=== PATIENT | male | born 1950 | race Caucasian/White ===

== ENCOUNTER 2016-05-20 09:11 | Day surgery (SDC) | payer MEDICARE ==
[2016-05-20] VITALS (8 sets, daily range): BP systolic 109–140; BP diastolic 58–85; PULSE 74–85; RESP 16–18; O2SAT 90–98
[~2016-05-20 09:11] MED LIST: AMLO10TA3 PO; CRIZ250C PO; FURO40TA4 PO; GABA-500 PO; Hydrocortisone 50 mg/mL 2 mL Inj IVPUSH ONE; LEVO175T5 PO; LISI-567 PO; OMEP40CA36 PO; OXYC-474 PO; OXYC15TA73 PO; TAMS0.4C98 PO; TRAZ-115 PO; diphenhydrAMINE 25 mg Capsule PO ONE
[2016-05-20] MEDS ORDERED: Furosemide 10 mg/mL 2 mL Inj IV ONE (11:15)
--- NOTE | 2016-05-20 17:00 | NUR ---
Blood transfusion: Pt arrived to [facility] for Blood transfusion. IV started and infusion completed without issue. Pt currently has 3+ edema in bilateral lower extremities. Expiratory wheezes bilaterally. Pt stated that the MD is aware. Care notes given on discharge and pt has no questions. IV dc'd intact and pt left the unit via wheelchair with in stable condition.
[2016-05-25] MEDS ORDERED: ALBU8.5H2 INHALATION (11:19)
[2016-05-25] MEDS ORDERED: ADV100INH IH (11:19)
[2016-06-03] MEDS ORDERED: LEVO200T6 PO (09:16)
[2016-06-15] MEDS ORDERED: DXM4T PO (11:43)
[2016-06-15] MEDS ORDERED: PRE20 PO (11:43)
[2016-08-03] MEDS ORDERED: [UNRECOGNIZED DRUG - OTHER] PO (14:22)
[2016-08-03] MEDS ORDERED: DXM4T PO (15:50)
[2016-08-11] MEDS ORDERED: DXM4T PO (11:33)
[2016-08-30] MEDS ORDERED: [UNRECOGNIZED DRUG - OTHER] (08:45)
[2016-09-14] MEDS ORDERED: OMEP20CA11 PO (10:16)
[2016-09-14] MEDS ORDERED: POLY17PO6 PO (10:16)
[2016-09-14] MEDS ORDERED: HYDR2TAB28 PO (10:16)
[2016-09-14] MEDS ORDERED: LEVO200T6 PO (10:16)
[2016-09-14] MEDS ORDERED: FENT1PAT6 TRANSDERM (10:16)
[2016-09-27] MEDS ORDERED: FENT1PAT7 TRANSDERM (10:33)
== END 2016-05-20 23:59 | disposition home or self-care (01) ==
LOC: MOCO 09:11
PROVIDERS: ATTEND Internal Medicine Hematology & Oncology
DX: D64.9 Anemia, unspecified (principal); R60.9 Edema, unspecified

== ENCOUNTER 2016-05-25 12:04 | Inpatient (IN) | payer MEDICARE ==
[~2016-05-25] VITALS: Ht 172.7 cm; Wt 116.9 kg
[2016-05-25] VITALS (14 sets, daily range): BP systolic 98–164; BP diastolic 59–76; PULSE 70–85; RESP 12–24; O2SAT 86–94
[~2016-05-25 12:04] MED LIST changes: +ADV100INH IH; +ALBU8.5H2 INHALATION; -Hydrocortisone 50 mg/mL 2 mL Inj IVPUSH ONE; -diphenhydrAMINE 25 mg Capsule PO ONE
--- NOTE | 2016-05-25 12:24 | ED.REPORT ---
HPI-Dyspnea / Wheezing Date of Service May 25, 2016 ED Provider: Dr. Cecilio Carrasco Patient is a 66-year-old gentleman with a history of dual malignancy in form of prostate cancer and advanced lung adenocarcinoma who reports to the ED complaining of shortness of breath with expiratory wheezing worsening over the last 3 weeks. Pt also reports bilateral swelling to the lower and upper extremities. He denies chest pain. Via patient's , he regularly takes Oxycodone and Vicodin to manage pain due to cancer. Pt is also currently on po chemotherapy. Nursing Notes Stated Complaint: SOB Chief Complaint: Respiratory Distress Nursing Notes Reviewed: Yes Allergies: Coded Allergies: No Known Allergies (Unverified , 05/25/16) Scheduled Amlodipine (Amlodipine) 10 Mg Tablet 10 MG PO DAILY Crizotinib (Xalkori) 250 Mg Capsule 250 MG PO BID Fluticasone/Salmeterol (Advair 500-50 Diskus) 1 Each Disk.w.dev 1 PUFF INHALATION BID Furosemide (Furosemide) 20 Mg Tab 20 MG PO BID Gabapentin (Gabapentin) 100 Mg Capsule 300 MG PO TID Levothyroxine (Levothyroxine) 175 Mcg Tablet 175 MCG PO DAILY Lisinopril (Lisinopril) 20 Mg Tablet 20 MG PO DAILY Omeprazole (Omeprazole) 40 Mg Capsule.dr 20 MG PO DAILY Oxycodone ER (Oxycontin) 15 Mg Tab.er.12h 30 MG PO BID Tamsulosin (Flomax) 0.4 Mg Capsule 0.8 MG PO HS Trazodone (Trazodone) 50 Mg Tablet 50 MG PO HS Scheduled PRN Albuterol HFA (Proair HFA) 8.5 Gm Hfa.aer.ad 2 PUFFS INHALATION Q4H PRN PRN For Wheezing Oxycodone (Roxicodone) 5 Mg Tablet 15 MG PO QID PRN PRN For Pain General Time Seen by MD: 12:23 Chief Complaint Shortness of breath Hx Obtained From: Patient Arrived By: Walk-in Sudden in Onset?: Yes Onset Occurred: More than a week ago... 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 Physical Exam Initial Vital Signs Vital Signs (First) Date Time Temp Pulse Resp B/P Pulse Ox O2 Delivery O2 Flow Rate FiO2 05/25/16 12:12 36.3 81 24 118/66 94 Nasal Cannula 2 Initial VS: Reviewed Head / Eyes: Atraumatic, Normocephalic, PERRL ENT: Mucous membranes moist, Conjunctiva normal, No scleral icterus Abdomen / GI: Soft, Non-tender, No guarding, No rebound Extremities: Vascular intact, Neuro intact Skin: Warm Neurologic: Alert Psychiatric: Mood/affect normal General/Constitutional: Awake, Alert, Cooperative Neck: Atraumatic, Supple, Full range of motion, No swelling Diminished Breath Sounds: Positive: Decreased bilateral (severely diminished breath sounds bilaterally) Cardiovascular: Heart rate NL, Regular rhythm, Heart sounds NL Anasarca edema up to the abdomen Interpretation & Diagnostics Interpretation & Diagnostics: ANGIOGRAPHY CT IMPRESSION: 1. No evidence for pulmonary embolus. 2. Increase in abnormal soft tissue thought to be malignant involving paratracheal lymph nodes right hilar lymph nodes and right suprahilar mass compared to CT PE study of 03/27/16. 3. Decreasing size of the right mainstem bronchus, bronchus intermedius and complete occlusion of the right middle lobe bronchi with some volume loss in the right lung compared to the previous study. Dictated by: Ponce Armendariz M.D. on 05/25/2016 at 14:01 Approved by: Ponce Armendariz M.D. on 05/25/2016 at 14:01 Lab Results Interpretation Result Diagram: 05/25/16 1234 05/25/16 1234 Test 05/25/16 12:34 White Blood Count 6.6th/mm3 (3.8-10.1) Red Blood Count 3.48mil/mm3 (4.40-5.80) Hemoglobin 8.9g/dL (13.8-17.2) Hematocrit 30.1% (41.0-50.0) Mean Corpuscular Volume 86.5fL (81-100) Mean Corpuscular Hemoglobin 25.6pg (27.0-35.0) Mean Corpuscular Hemoglobin Concent 29.6% (32.0-37.0) Red Cell Distribution Width 16.9% (12.3-15.4) Platelet Count 170bil/L (150-400) Neutrophils (%) (Auto) 75.6% (40-74) Lymphocytes (%) (Auto) 10.2% (14-46) Monocytes (%) (Auto) 11.1% (4-12) Eosinophils (%) (Auto) 2.1% (0-5) Basophils (%) (Auto) 0.5% (0-3) Prothrombin Time 10.8sec (8.1-12.5) Prothromb Time International Ratio 1.01ratio Activated Partial Thromboplast Time 32.3sec (22.8-33.0) Sodium Level 134mEq/L (134-144) Potassium Level 4.6mEq/L (3.5-5.2) Chloride Level 95mEq/L (97-108) Carbon Dioxide Level 26mmol/L (18-29) Blood Urea Nitrogen 23mg/dL (8-27) Creatinine 0.92mg/dL (0.76-1.27) Estimat Glomerular Filtration Rate 88mL/min (>59) Glucose Level 119mg/dL (60-99) Calcium Level 9.0mg/dL (8.5-10.1) Magnesium Level 2.0mg/dL (1.6-2.6) Total Bilirubin 0.3mg/dL (0.0-1.2) Aspartate Amino Transf (AST/SGOT) 30U/L (0-50) Alanine Aminotransferase (ALT/SGPT) 27U/L (0-44) Alkaline Phosphatase 80U/L (25-160) Troponin T < 0.010ug/L (0.0-0.011) Pro-B-Type Natriuretic Peptide 69.40pg/mL (0-376) Total Protein 6.5g/dL (6.4-8.4) Albumin 3.4g/dL (3.4-5.0) Hold Mandel Top Tube Received (Received) ECG Interpretation Time: 13:32 Interpreted by: ED physician Normal ECG Interpretation: Normal ECG w/ rate of... (82) X-Ray Chest Interpretation Chest Xray Interpretation: IMPRESSION: 1. Left lung base atelectasis versus pneumonia. 2. No change in right lung scarring. Dictated by: Silke Kennedy M.D. on 05/25/2016 at 12:54 Approved by: Silke Kennedy M.D. on 05/25/2016 at 12:54 View: Portable Interpretation / Wet Read by: Interpret - Radiologist Re-Eval/Medical Decision Med Decision/Clinical Course Hypoxic respiratory failure and anasarca likely combination of COPD and medication related to chemotherapeutic agents. Will plan to diuresis with Lasix. Solu-Medrol and albuterol and DuoNeb's have been given due to concern for underlying COPD. No evidence of acute infection. Patient will be admitted. Re-Evaluation/Progress : Time of Eval: 14:10 Re-Evaluation/Progress Note: Pt rechecked. Pt informed that radiology is not showing any serious blood clot or infection but tumors have worsened. Informed pt of need for admission. Pt understands and agrees with plan for admission. All questions addressed. Consultation #1: Referral / Consult Name: Alton Lang MD Call Returned at: 14:22 Boat Joiner: Agrees with eval, Agrees with plan Note: Dr. Cazares thinks that swelling is due to chemo agent and recommends admission. He will contact [facility] [place]. Consultation #2: Referral / Consult Name: Wander Garduno MD Call Returned at: 14:54 Boat Joiner: Agrees with eval, Agrees with plan, Accepts admit Note: Case discussed. Accepts admit. Counseled Regarding: Diagnosis, Lab results, Need for admission Discharge & Departure Shift Change Sign-Out Patient Care Transferred: Yes Discussed Complaint(s): Yes Laboratory Evaluation: Lab evaluation discussed Imaging Studies: Imaging discussed Disposition: ADMITTED TO HOSPITAL Discharge Condition All VS Reviewed: Yes Condition: Stable Referrals: Wayne Austin (PCP) Paramjit Attestation Portion of this note were transcribed by Mauri Rodriguez. I, Dr. Carrasco, personally performed the history, physical exam, and medical decision-making: I reviewed and confirmed the accuracy for the information in the transcribed note. Signed by: paramjit Garcia, 05/25/16 [id number] copies to: Wayne Austin Timothy S DO May 25, 2016 12:24 MAURI RODRIGUEZ May 25, 2016 12:36
[2016-05-25] MEDS ORDERED: Albuterol 2.5 mg/3 mL Inhalation Solution NEB ONE (12:35)
[2016-05-25] MEDS ORDERED: Albuterol-Ipratropium 3 mL Inhalation Solution NEB ONE (12:35)
[2016-05-25] MEDS ORDERED: Ondansetron 2 mg/mL 2 mL Inj IVPUSH ONE (12:35)
[2016-05-25 12:51] LABS: BASOPHILS % (AUTO) 0.5 % (0-3); EOSINOPHILS % (AUTO) 2.1 % (0-5); MONOCYTES % (AUTO) 11.1 % (4-12); Mean Corpuscular Hemoglobin 25.6 pg (27.0-35.0); Mean Corpuscular Volume 86.5 fL (81-100); NEUTROPHILS % (AUTO) 75.6 % (40-74); Platelet Count 170 bil/L (150-400)
--- NOTE | 2016-05-25 12:55 | DRSVH ---
CORRECTED CC PROVIDER ON 05/25/16 PROCEDURE: X-RAY CHEST ONE VIEW, PORTABLE ([id number]) INDICATIONS: hypoxia TECHNIQUE: One view of the chest was acquired. COMPARISON: [facility], CR, CHEST 1 VIEW, 05/02/2016, 16:11. Merged With [facility], CR, XR CH EST 1VW (PORTABLE), 04/07/2016, 13:15. FINDINGS: Surgical changes and devices: None. Lungs and pleura: No pleural effusions or pneumothorax. No change in right perihilar and medial bas ilar opacity, consistent with scarring. New mild patchy opacity at the left lung base. Mediastinum: Mediastinal contours appear normal. Heart size is normal. Bones and chest wall: No suspicious bony lesions. Overlying soft tissues appear unremarkable. IMPRESSION: 1. Left lung base atelectasis versus pneumonia. 2. No change in right lung scarring. Dictated by: Silke Kennedy M.D. on 05/25/2016 at 12:54 Approved by: Silke Kennedy M.D. on 05/25/2016 at 12:54
[2016-05-25 13:18] LABS: INR 1.01 ratio
[2016-05-25 13:34] LABS: TROPONIN T < 0.010 ug/L (0.0-0.011)
[2016-05-25] MEDS ORDERED: FLUT1DIS5 INHALATION (13:35)
[2016-05-25] MEDS ORDERED: FUR20 PO (13:35)
--- NOTE | 2016-05-25 14:02 | DRSVH ---
PROCEDURE: CT ANGIO CHEST PULMONARY EMBOLISM ([id number]) INDICATIONS: hypoxia, ho cancer TECHNIQUE: After the administration of intravenous contrast, 2 mm thick sections acquired from the pulmonary api lilo to the posterior costophrenic angles. 3-dimensional maximum intensity projection (MIP) coronal a nd sagittal reformats were then acquired through the thorax. For radiation dose reduction, the follo wing was used: automated exposure control, adjustment of mA and/or kV according to patient size. COMPARISON: [facility], CR, CHEST 1 VIEW, 05/02/2016, 16:11. [facility], CR, XR CH EST 1VW (PORTABLE), 05/25/2016, 12:32. FINDINGS: Image quality: Excellent. Pulmonary arteries: Pulmonary arteries are normal in size, and demonstrate no intraluminal filling d efects to suggest central pulmonary embolism. Lungs and pleura: A. stellate lesion medially at the apex of the right lung appears to have increased slightly in size compared to the study of 03/27/16. There is some increasing soft tissue thought to be both radiation fibrosis and because in the region of the hilum because of mass effect on the vena cava and overall bulky appearance and loss of aeration of portion of the right middle lobe bronchi an d increasing loss of aeration in the right lower lobe there is likely to be recurrent tumor in the ar ea as well. Mediastinum: In the base of the neck on the right side between the common carotid artery and the righ t subclavian artery there is increasing soft tissue density to the most likely metastatic lymph node. This is seen on series 4 image 20. On series 4 image 44 there is increasing adenopathy in the right paratracheal region. There is increasing soft tissue in the region of the distal trachea and right ma instem bronchus compared to the previous study. Heart size is normal, without pericardial effusion. No mediastinal or hilar adenopathy. Thoracic aorta is normal in caliber and enhancement. Esophagus is normal in caliber, without hiatal hernia. Bones and chest wall: No suspicious bony lesions. Ribs and thoracic spine appear intact throughout. Thyroid gland is relatively small.. No axillary or supraclavicular adenopathy. Abdomen: Visualized upper abdominal solid organs appear normal in the early arterial phase of enhanc ement. Abnormal adrenal glands are not visibly changed. IMPRESSION: 1. No evidence for pulmonary embolus. 2. Increase in abnormal soft tissue thought to be malignant involving paratracheal lymph nodes right hilar lymph nodes and right suprahilar mass compared to CT PE study of 03/27/16. 3. Decreasing size of the right mainstem bronchus, bronchus intermedius and complete occlusion of the right middle lobe bronchi with some volume loss in the right lung compared to the previous study. Dictated by: Ponce Armendariz M.D. on 05/25/2016 at 14:01 Approved by: Ponce Armendariz M.D. on 05/25/2016 at 14:01
[2016-05-25] MEDS ORDERED: Furosemide 10 mg/mL 4 mL Inj IVPUSH ONE (14:20)
[2016-05-25] MEDS ORDERED: MethylprednisoLONE Sodium Succinate 62.5 mg/mL 2 mL Inj IVPUSH ONE (14:25)
[2016-05-25] MEDS ORDERED: Alum-Mag Hydrox-Simeth 30 mL Suspension PO PRN (15:00)
[2016-05-25] MEDS ORDERED: Ondansetron 2 mg/mL 2 mL Inj IVPUSH PRN (15:00)
--- NOTE | 2016-05-25 15:03 | PCM.HPMED ---
Subjective Date of Service May 25, 2016 Primary Provider: Admitting Physician: Primary Care Physician: Wayne Austin Attending Physician: Chief Complaint: HISTORY was OBTAINED FROM PATIENT / MEDITECH NOTES History of present illness 66-year-old male with progressive hypoxia for the last 3 weeks after he started crizotinib regimen for lung cancer (also prostate cancer), associated worsening of fluid overload despite lasix since prior to thismedication by oncology. Anasarca with weight gain of 25 pounds/short of breath, eating out w. so some salty food. baseline productive sputum. c/o of imcomplete bladder emtpying s/p lasix in ER though. ER doctor spoke to Dr. Cazares who recommends diuresis and she will call the [facility] for possible bronchus stent placement In the ER, O2 saturation 80% on room air, 40 of Lasix DuoNeb's, Solu-Medrol for diminished breath sounds, CT negative for PE and pneumonia but worsening cancer load and new right mainstem bronchus occlusion. Review of Systems - none of the following - F/C/sick contact / OLGUIN / lightheaded / cp / n/v/diarrhea / bleeding/bruising / l yeast infections / rash pain controlled w/ home meds MEDICATIONS carboplatin and Alimta, received four cycles and then switched to Alimta on March 30 then crizotinib instead of Alimta, started 2015 1. Amlodipine 10 mg. 2. Furosemide usually 20 mg daily. increased to 40 mg daily for 3 days after he went to urgent care because of lower extremity swelling. 3. Gabapentin 300 mg 3 times a day. 4. Levothyroxine 175 mcg. 5. Lisinopril 20 mg. 6. Omeprazole 20 mg. 7. OxyContin 50 mg b.i.d. 8. Tamsulosin 0.8 mg. 9. Trazodone 50 mg at bedtime. Albuterol HFA (Proair HFA) 8.5 Gm Hfa.aer.ad 2 PUFFS INHALATION Q4H PRN PRN For Wheezing Oxycodone (Roxicodone) 5 Mg Tablet 15 MG PO QID PRN PRN For Pain PMHX peripheral edema anemia multifactorial, possibly chemotherapy-induced. transfused by oncologist in past 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 prostate cancer gleason7 and advanced lung adenocarcinoma stage 3b Hypertension GERD Smoking History Former Smoker Exam on admission walks from bathroom NAD A and O x 3 mood affect WNL NC/AT no icterus no injected eyes EOMI PERRL /no pharyngeal lesions/ no oral lesions / hearing intact Supple neck DIMINISHED BILATEARL CTAB equal chest rise / no accessory muscle use / speaks in full sentences / no rrw RRR S1 S2 / no mrg / 2+ radial pulses Soft nt nd + BS no hepatosplenomegaly no cyanosis no ecchymosis of lower extremities No rash / no jaundice TOBIN edematous ABDOMEN/LEGS - ERYTHEMA DUE TO CHRONIC EDEMA OF LEGS EKG 80sSR no ST changes PROCEDURE: CT ANGIO CHEST PULMONARY EMBOLISM ([id number]) INDICATIONS: hypoxia, ho cancer TECHNIQUE: After the administration of intravenous contrast, 2 mm thick sections acquired from the pulmonary apices to the posterior costophrenic angles. 3-dimensional maximum intensity projection (MIP) coronal and sagittal reformats were then acquired through the thorax. For radiation dose reduction, the following was used: automated exposure control, adjustment of mA and/or kV according to patient size. COMPARISON: [facility], CR, CHEST 1 VIEW, 05/02/2016, 16:11. [facility], CR, XR CHEST 1VW (PORTABLE), 05/25/2016, 12:32. FINDINGS: Image quality: Excellent. Pulmonary arteries: Pulmonary arteries are normal in size, and demonstrate no intraluminal filling defects to suggest central pulmonary embolism. Lungs and pleura: A. stellate lesion medially at the apex of the right lung appears to have increased slightly in size compared to the study of 03/27/16. There is some increasing soft tissue thought to be both radiation fibrosis and because in the region of the hilum because of mass effect on the vena cava and overall bulky appearance and loss of aeration of portion of the right middle lobe bronchi and increasing loss of aeration in the right lower lobe there is likely to be recurrent tumor in the area as well. Mediastinum: In the base of the neck on the right side between the common carotid artery and the right subclavian artery there is increasing soft tissue density to the most likely metastatic lymph node. This is seen on series 4 image 20. On series 4 image 44 there is increasing adenopathy in the right paratracheal region. There is increasing soft tissue in the region of the distal trachea and right mainstem bronchus compared to the previous study. Heart size is normal, without pericardial effusion. No mediastinal or hilar adenopathy. Thoracic aorta is normal in caliber and enhancement. Esophagus is normal in caliber, without hiatal hernia. Bones and chest wall: No suspicious bony lesions. Ribs and thoracic spine appear intact throughout. Thyroid gland is relatively small.. No axillary or supraclavicular adenopathy. Abdomen: Visualized upper abdominal solid organs appear normal in the early arterial phase of enhancement. Abnormal adrenal glands are not visibly changed. IMPRESSION: 1. No evidence for pulmonary embolus. 2. Increase in abnormal soft tissue thought to be malignant involving paratracheal lymph nodes right hilar lymph nodes and right suprahilar mass compared to CT PE study of 03/27/16. 3. Decreasing size of the right mainstem bronchus, bronchus intermedius and complete occlusion of the right middle lobe bronchi with some volume loss in the right lung compared to the previous study. PROCEDURE: X-RAY CHEST ONE VIEW, PORTABLE ([id number]) INDICATIONS: hypoxia TECHNIQUE: One view of the chest was acquired. COMPARISON: [facility], CR, CHEST 1 VIEW, 05/02/2016, 16:11. [facility], CR, XR CHEST 1VW (PORTABLE), 04/07/2016, 13:15. FINDINGS: Surgical changes and devices: None. Lungs and pleura: No pleural effusions or pneumothorax. No change in right perihilar and medial basilar opacity, consistent with scarring. New mild patchy opacity at the left lung base. Mediastinum: Mediastinal contours appear normal. Heart size is normal. Bones and chest wall: No suspicious bony lesions. Overlying soft tissues appear unremarkable. IMPRESSION: 1. Left lung base atelectasis versus pneumonia. 2. No change in right lung scarring. 05/02/2016 Echo Interpretation Summary There is mild concentric left ventricular hypertrophy. The ejection fraction is estimated to be 60-65%. There is mild mitral regurgitation. Pulmonary artery pressures cannot be estimated because of the lack of a measurable TR jet velocity. Active issues and reason for admission aNASARCA/ACUTE ON CHRONIC DEPENDENT EDEMA, NOW ASSOCIATED W/ HYPOXIA DUE TO NEW CHEMOTHERAPY po MEDICATION --HOLD CHEMOTHERAPY MEDICATION, PENDING JEFFREY ON PROGRESSIVE R LUNG CANCER ON TODAY'S CT W/ NEW BRONCHUS STEM OCCLUSION --DIURESE LASIX 40 tid, MONITOR ELECTROLYTES URGENCY, CONTRIBUTORY LASIX/PROSTATE CANCER --PVR, IBRAHIM PRN INCOMPLETE BLADDER EMPTY --CONT FLOMAX Chronic issues known prior to admission, present on admission peripheral edema anemia multifactorial, possibly chemotherapy-induced. transfused by oncologist in past 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 prostate cancer gleason7 and advanced lung adenocarcinoma stage 3b Hypertension GERD --RESUME HOME MEDS, HELD LISINOPRIL WHILE DIURESING, CONSIDER DC AMLODIPINE INSETTING OF ONGOING PERIPHERAL EDEMA Diet REGULAR DVT prophylaxis lovenox ambulate Code FULL Disposition INPT, NEED CHEMO/BRONCHUS OCCLUSION PLAN FROM ONCOLOGY Assessment and plan were discussed with patient . Allergies Coded Allergies: No Known Allergies (Unverified , 05/25/16) PMH Social History Hx Alcohol Use: No Smoking Status: Former Smoker Exam Vital Signs Vital Sign - Last Date Time Temp Pulse Resp B/P Pulse Ox O2 Delivery O2 Flow Rate FiO2 05/25/16 12:12 36.3 81 24 118/66 94 Nasal Cannula 2 Lab and Diagnostics Result Diagram: 05/25/16 1234 05/25/16 Wander Wolf MD May 25, 2016 15:03 05/02/2016 Echo Interpretation Summary There is mild concentric left ventricular hypertrophy. The ejection fraction is estimated to be 60-65%. There is mild mitral regurgitation. Pulmonary artery pressures cannot be estimated because of the lack of a measurable TR jet velocity. Active issues and reason for admission Chronic issues known prior to admission, present on admission Diet DVT prophylaxis lovenox heparin scd ambulate Code Disposition OBS status Greater than 50% of this visit, with total time of 51 71 minutes, was spent on counselling and coordinating care. Assessment and plan were discussed with patient family. Allergies Coded Allergies: No Known Allergies (Unverified , 05/25/16) PM Social History Hx Alcohol Use: No Smoking Status: Former Smoker Exam Vital Signs Vital Sign - Last Date Time Temp Pulse Resp B/P Pulse Ox O2 Delivery O2 Flow Rate FiO2 05/25/16 12:12 36.3 81 24 118/66 94 Nasal Cannula 2 Lab and Diagnostics Result Diagram: 05/25/16 1234 05/25/16 Wander Wolf MD May 25, 2016 15:03 The ejection fraction is estimated to be 60-65%. There is mild mitral regurgitation. Pulmonary artery pressures cannot be estimated because of the lack of a measurable TR jet velocity. Active issues and reason for admission Chronic issues known prior to admission, present on admission Diet DVT prophylaxis lovenox heparin scd ambulate Code Disposition OBS status Greater than 50% of this visit, with total time of 51 71 minutes, was spent on counselling and coordinating care. Assessment and plan were discussed with patient family. Allergies Coded Allergies: No Known Allergies (Unverified , 05/25/16) PMH Social History Hx Alcohol Use: No Smoking Status: Former Smoker Exam Vital Signs Vital Sign - Last Date Time Temp Pulse Resp B/P Pulse Ox O2 Delivery O2 Flow Rate FiO2 05/25/16 12:12 36.3 81 24 118/66 94 Nasal Cannula 2 Lab and Diagnostics Result Diagram: 05/25/16 1234 05/25/16 1234 Wander Garduno MD May 25, 2016 15:03
[2016-05-25] MEDS: Albuterol-Ipratropium 3 mL Inhalation Solution NEB SCH ×2 (16:00→20:11)
--- NOTE | 2016-05-25 16:55 | NUR ---
Arrived He arrived to [place] [id number] about 1655. He was settled into the room, telemetry placed on him, 2L of O2, and he was hooked up to the continuous pulse oximeter. No c/o pain or shortness of breath. Care continues.
[2016-05-25] MEDS: XALKORI 250 MG PO SCH (17:54)
[2016-05-25 18:33] LABS: APPEARANCE,URINE CLEAR (CLEAR,HAZY); COLOR,URINE YELLOW (YELLOW); OCCULT BLOOD,URINE NEGATIVE (NEGATIVE); PH,URINE 5.5 (5.0-8.0); UROBILINOGEN,URINE NORMAL (NORMAL)
[2016-05-25] MEDS: Fluticasone-Salmeterol 500-50 Inhaler INHALATION SCH (21:01)
[2016-05-25] MEDS: Furosemide 10 mg/mL 4 mL Inj IVPUSH SCH (21:04)
[2016-05-26] VITALS (15 sets, daily range): BP systolic 101–144; BP diastolic 58–90; PULSE 83–107; RESP 16–20; O2SAT 87–96
[2016-05-26] MEDS: Furosemide 10 mg/mL 4 mL Inj IVPUSH SCH ×2 (05:18→16:15)
--- NOTE | 2016-05-26 06:18 | NUR ---
Apnea: Pt scored high on Risk Assessment for ANNABELLA and was placed on continuous pulse oximetry last night when going to sleep. Pt noted to have periods of apnea with oxygen desaturations. Pt was placed on an oxymask at 4L and then increased to 6L to maintain saturations above 91%. The pt was noted to be restless during his sleep, several times pulling the oxymask off. Pt awake this am saturating in the mid 90s on 4L per NC; denies any SOB. Will cont. to monitor.
[2016-05-26 06:31] LABS: BASOPHILS % (AUTO) 0 % (0-3); EOSINOPHILS % (AUTO) 0.2 % (0-5); MONOCYTES % (AUTO) 1.9 % (4-12); Mean Corpuscular Hemoglobin 26.1 pg (27.0-35.0); Mean Corpuscular Volume 86.7 fL (81-100); NEUTROPHILS % (AUTO) 92.6 % (40-74); Platelet Count 172 bil/L (150-400)
[2016-05-26 06:37] LABS: Phosphorus 5.4 mg/dL (2.5-4.9)
[2016-05-26] MEDS: Albuterol-Ipratropium 3 mL Inhalation Solution NEB SCH ×4 (07:44→21:00)
--- NOTE | 2016-05-26 08:01 | PCM.PNMED ---
Subjective Date of Service May 26, 2016 Subjective no complaints overnight, denies cp/f/c/n/v - needed 4-6L overnight to maintain oxygen saturations. elev K this AM - repeat and check ekg Exam Vital Signs Vital Sign - Last Date Time Temp Pulse Resp B/P Pulse Ox O2 Delivery O2 Flow Rate FiO2 05/26/16 05:57 86 05/26/16 05:25 36.4 19 114/67 96 Nasal Cannula 4.00 Intake and Output 05/25/16 05/25/16 05/26/16 Cumulative From/Thru 15:00 23:00 07:00 05/25/16 12:12 - 05/26/16 05:23 Intake Total 800 ml 800 ml Output Total 700 ml 1350 ml 2050 ml Balance -700 ml -550 ml -1250 ml Intake Oral 800 ml 800 ml Output Urine Total 700 ml 1350 ml 2050 ml # Bowel Movements 0 0 Exam walks, off oxygen NAD A and O x 3 mood affect WNL NC/AT no icterus no injected eyes EOMI PERRL /no pharyngeal lesions/ no oral lesions / hearing intact Supple neck DIMINISHED BILATEARL CTAB equal chest rise / no accessory muscle use / speaks in full sentences / no rrw RRR S1 S2 / no mrg / 2+ radial pulses Soft nt nd + BS no hepatosplenomegaly no cyanosis no ecchymosis of lower extremities No rash / no jaundice TOBIN IVs and Medications Medications Reviewed: Medications were reviewed in detail Lab and Diagnostics Result Diagram: 05/26/16 0555 05/26/16 0555 Assessment & Plan ANASARCA/ACUTE ON CHRONIC DEPENDENT EDEMA, acute hypoxic respiratory failure DUE TO dieatary indiscretion, bronchus stem occlusion and new chemotx po MEDICATION --HOLD CHEMOTHERAPY MEDICATION, PENDING JEFFREY ON PROGRESSIVE R LUNG CANCER ON TODAY'S CT W/ NEW BRONCHUS STEM OCCLUSION --DIURESE LASIX 40 tid, MONITOR ELECTROLYTES URGENCY, CONTRIBUTORY LASIX/PROSTATE CANCER --PVR, IBRAHIM PRN INCOMPLETE BLADDER EMPTY --CONT FLOMAX Chronic issues known prior to admission, present on admission peripheral edema anemia multifactorial, possibly chemotherapy-induced. 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 Pain Evaluation: Adequate Pain Control VTE Prophylaxis: Sub-Q Enoxaparin Resuscitation Status: CPR: Attempt Resuscitation Time spent 35 minutes spent with eval and mgmt - >50% spent with counseling and face to face Arturo Hong DO May 26, 2016 06:58
[2016-05-26] MEDS: Fluticasone-Salmeterol 500-50 Inhaler INHALATION SCH ×2 (08:19→20:48)
[2016-05-26] MEDS: Pantoprazole 20 mg ER24 Tablet PO SCH (08:20)
[2016-05-26] MEDS ORDERED: Non-Formulary Medication (Levothyroxine 175 MCG) PO SCH (08:30)
[2016-05-26] MEDS: XALKORI 250 MG PO SCH (08:30)
--- NOTE | 2016-05-26 10:46 | NUR ---
Evaluation completed. Please go to "Notes" then click on "Assessments and Notes" (bottom left corner of screen). Then select appropriate discipline tab on top of screen.
--- NOTE | 2016-05-26 11:47 | NUR ---
Case Managment- IMM explained and signed. Khadijah BOWIE RN
--- NOTE | 2016-05-26 16:56 | NUR ---
RESPIRATORY PO2 on room air is 87-88 %. Ambulated in the hallway O2 dropped to 87-88 %. O2 was placed back on. PO2 on O2 at 4 LPM- Mid 90's. Patient stated that his SOB is getting a little better.
--- NOTE | 2016-05-26 17:25 | NUR ---
ACTIVITY Patient denies pain. Tolerating liquids PO and his diet well. Denies nausea. No emesis noted. Patient continues to be on O2 at 4 LPM via NC. He complains of SOB with exertion. Per patient his SOB is lesser as compared to admit but not significantly better. Voiding without any problems. PVR-180 ml. Patient continues to be on tele. Per supervisor telephone answering service patient is on sinus rhythm; HR-84. Radiation is scheduled for tomorrow at 10:45 at the oncology clinic. Cabulance is set to pick him up at 1015. Patient was made aware of this.
--- NOTE | 2016-05-26 22:00 | NUR ---
Patients duoneb skipped, patient sleeping and in no respiratory distress
[2016-05-27] VITALS (12 sets, daily range): BP systolic 132–143; BP diastolic 72–78; PULSE 72–100; RESP 18–20; O2SAT 87–98
--- NOTE | 2016-05-27 02:42 | NUR ---
Pain/Transfer of care Pt reports back/shoulder pain at 5-6/10, Oxycodone given x1, moderately effective, pt asleep off and on. Care transferred to [facility] at 0240.
[2016-05-27] MEDS: Furosemide 10 mg/mL 4 mL Inj IVPUSH SCH ×2 (05:09→17:36)
[2016-05-27 05:38] LABS: BASOPHILS % (AUTO) 0.3 % (0-3); EOSINOPHILS % (AUTO) 1.3 % (0-5); MONOCYTES % (AUTO) 9.2 % (4-12); Mean Corpuscular Hemoglobin 25.9 pg (27.0-35.0); Mean Corpuscular Volume 85.8 fL (81-100); NEUTROPHILS % (AUTO) 78.8 % (40-74); Platelet Count 162 bil/L (150-400)
--- NOTE | 2016-05-27 07:31 | NUR ---
Assumed care Assumed care of patient at 0240 from Jeet Rivas RN. Patient resting/sleeping during remainder of shift. Using NC 3L. Patient stated pain around right shoulder blade area but refused pain medication. Administered 40mg IVP lasix.
[2016-05-27] MEDS: Albuterol-Ipratropium 3 mL Inhalation Solution NEB SCH ×4 (07:49→19:58)
[2016-05-27] MEDS: Pantoprazole 20 mg ER24 Tablet PO SCH (07:54)
[2016-05-27] MEDS: Fluticasone-Salmeterol 500-50 Inhaler INHALATION SCH ×2 (07:55→20:34)
--- NOTE | 2016-05-27 12:37 | NUR ---
to [facility] for Radiation mapping [place] had arranged transport through [facility] transport per MD orders. Pt picked up via cabulance and transferred to [facility] for scheduled radiation mapping at 1038, left in stable condition via wheelchair with 3LO2. Called report to Rosalva NOVOA at the [facility]. Pt returned back to [facility] room 1007 at 1157. Pt denies any unmet needs at this time. Care continues.
--- NOTE | 2016-05-27 13:27 | NUR ---
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 Met with patient and introduced myself. patient was waiting for [facility]ulance to arrive for transport to Radiation Oncology. I will discuss my role as outside plant engineer when patient returns from Radiation Oncology. Addendum: 05/27/16 at 1437 by ABDULLAHI OLIVIER RN Met with patient and discussed Respite Care for his who is getting tired and he would like his to be a part of the conversation. Shared patient's concern re: respite care for patient's and involving in conversation with ROWAN Su[facility] Travel Administrator for [facility]. I recommended an expedited [place] application for patient to [employer] after discussing respite care for with Oncology Saravanan DONAHUE. I reassured patient his , Radha would be included in the conversation. Will continue to follow and address any care needs as they arise.
--- NOTE | 2016-05-27 17:20 | PCM.PNMED ---
Subjective Date of Service May 27, 2016 Subjective Patient seen this morning with no acute issues, denies chest pain or short of breath. Exam Vital Signs Vital Sign - Last Date Time Temp Pulse Resp B/P Pulse Ox O2 Delivery O2 Flow Rate FiO2 05/27/16 16:21 72 20 98 Nasal Cannula 3.00 05/27/16 15:13 36.5 143/73 Intake and Output 05/26/16 05/26/16 05/27/16 Cumulative From/Thru 15:00 23:00 07:00 05/25/16 12:12 - 05/27/16 05:52 Intake Total 780 ml 840 ml 2420 ml Output Total 2300 ml 1350 ml 5700 ml Balance -1520 ml -510 ml -3280 ml Intake Oral 780 ml 840 ml 2420 ml Output Urine Total 2300 ml 1350 ml 5700 ml # Voids 1 1 # Bowel Movements 0 0 0 Exam NAD A and O x 3 mood affect WNL NC/AT no icterus no injected eyes EOMI PERRL /no pharyngeal lesions/ no oral lesions / hearing intact Supple neck DIMINISHED BILATEARL CTAB equal chest rise / no accessory muscle use / speaks in full sentences / no rrw RRR S1 S2 / no mrg / 2+ radial pulses Soft nt nd + BS no hepatosplenomegaly no cyanosis no ecchymosis of lower extremities No rash / no jaundice TOBIN IVs and Medications Medications Reviewed: Medications were reviewed in detail Lab and Diagnostics Result Diagram: 05/27/16 0502 05/27/16 0502 Assessment & Plan ANASARCA/ACUTE ON CHRONIC DEPENDENT EDEMA, acute hypoxic respiratory failure due to dieatary indiscretion, bronchus stem occlusion and new chemotx po MEDICATION --HOLD CHEMOTHERAPY MEDICATION, PENDING JEFFREY ON PROGRESSIVE R LUNG CANCER ON TODAY'S CT W/ NEW BRONCHUS STEM OCCLUSION --DIURESE LASIX 40 tid--> weaned to q12, MONITOR ELECTROLYTES -- Received radiation on May 27 URGENCY, CONTRIBUTORY LASIX/PROSTATE CANCER --PVR, IBRAHIM PRN INCOMPLETE BLADDER EMPTY --CONT FLOMAX Chronic issues known prior to admission, present on admission peripheral edema anemia multifactorial, possibly chemotherapy-induced. transfused by oncologist in past prostate cancer gleason7 and advanced lung adenocarcinoma stage 3b Hypertension GERD --RESUME HOME MEDS, HELD LISINOPRIL WHILE DIURESING, held AMLODIPINE INSETTING OF ONGOING PERIPHERAL EDEMA Diet REGULAR DVT prophylaxis lovenox ambulate Code FULL Disposition INPT, NEED CHEMO/BRONCHUS OCCLUSION PLAN FROM ONCOLOGY Assessment and plan were discussed with patient . Pain Evaluation: Adequate Pain Control VTE Prophylaxis: Sub-Q Enoxaparin Resuscitation Status: CPR: Attempt Resuscitation Time spent 30 minutes spent with eval and mgmt Arturo Hong DO May 27, 2016 17:20
--- NOTE | 2016-05-27 19:53 | NUR ---
ambulating Pt ambulating in hallway independently without difficulty, on 3LO2, O2 sats 98%. Pt was checked earlier today on room air after ambulating around room and only 87% on room air, encouraged to keep O2 on for activity. Medicated x1 this afternoon for c/o R shoulder pain, pt reports only somewhat effective but declines additional pain medication at this time. Call light in reach. Care continues.
[2016-05-28] VITALS (7 sets, daily range): BP systolic 148–157; BP diastolic 75–80; PULSE 76–95; RESP 19–22; O2SAT 91–97
--- NOTE | 2016-05-28 00:33 | CCS NOTE ---
[facility] [address] [address] MEDICAL ONCOLOGY OFFICE NOTE PATIENT: VALARIE RIVAS : 1950 MR#: [id number] DATE: 05/25/2016 JOB ID: [id number] MEDICAL ONCOLOGY PROGRESS NOTE: DATE: 05/27/2016 SUBJECTIVE: Patient was seen in the room with his . His oxygenation is still low on room air and he required 3 L of oxygen. Upon removing the oxygen, he desats to 87%. Blood pressure is stable, no fever. Aggressive diuresis has been ongoing over the past couple of days with Lasix 40 mg IV b.i.d. He feels slightly better in his breathing, but not drastically. We have discontinued the crizotinib. LABORATORIES: Show white count of 10.5, hemoglobin 8.2, platelets 162. Chemistry shows normal electrolytes. BUN is rising to 29, creatinine 0.69 today. PHYSICAL EXAMINATION: On exam, he still has quite a bit of edema in his legs. His weight has not changed much, still at 126.9 kg, which is similar to his admission. Heart regular. Abdomen is soft. ASSESSMENT AND PLAN: A 56-year-old gentleman with lung adenocarcinoma who was admitted through our clinic on May 25 to the hospital after he presented with new room-air hypoxia. He had upon admission a CT angio of the chest that was negative for PE, but revealed progression of the right paratracheal/hilar mass in form of compression effect and occlusion of the right middle lobe bronchus and narrowing of the right main bronchus. He did not have any evidence of congestive heart failure even though he has gained 25 pounds in three weeks and has significant lower extremity edema bilaterally based on his normal BNP. He did not require oxygen in the past, but currently is room-air hypoxic. I have spoken with Dr. Brito of Radiation Therapy to consider changing treatment towards more intense rates with treatment towards the right hilum in form of radiation possibly enhancing it with concomitant low-dose chemotherapy. His fluid retention in his legs I believe is related to side effect of this recent agent he started orally against his lung cancer, crizotinib, in the second half of April. I have asked the family to discontinue that. In my conversation with Radiation Oncology today, he can be simulated today and potentially start radiation early next week. If home oxygen can be arranged, then per discretion of the hospitalist team and hospital case management, he could be discharged over the weekend once oxygen at home is made available. I think we can scale back on the intensity of diuresis and send him home on 40 mg of Lasix IV. With discontinuation of crizotinib, I am hoping that the edema will gradually improve. He already is having elevation of BUN/creatinine ratio and an increase suggestive for intravascular contraction. I reviewed this situation with him and his family and also have discussed his case with Dr. Mendoza who was his oncologist at [facility]. We will plan to see him in the clinic next week. Further details are summarized in my note of May 25, 2016. TIME SPENT WITH PATIENT: Approximately 1 hour and 5 minutes were spent in counseling and coordination of care.
[2016-05-28] MEDS: Furosemide 10 mg/mL 4 mL Inj IVPUSH SCH ×2 (04:43→17:10)
--- NOTE | 2016-05-28 06:18 | NUR ---
Respiratory/Fatigue Pt reports SOB with activity, maintained on 2-4 Lnc. Pain in shoulder/back managed with PRN po meds, ambuating for relief, and bengay. Edema noted BLE, daily wt, pt on lasix. LS dim, pt states that R mid lobe is blocked by tumor. 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 Continue to monitor
[2016-05-28] MEDS: Albuterol-Ipratropium 3 mL Inhalation Solution NEB SCH ×4 (07:36→21:14)
--- NOTE | 2016-05-28 07:58 | NUR ---
Home Oxygen Eval Room Air at rest 85%
[2016-05-28 08:43] LABS: BASOPHILS % (AUTO) 0.6 % (0-3); EOSINOPHILS % (AUTO) 1.4 % (0-5); MONOCYTES % (AUTO) 10.2 % (4-12); Mean Corpuscular Hemoglobin 25.6 pg (27.0-35.0); Mean Corpuscular Volume 85.6 fL (81-100); NEUTROPHILS % (AUTO) 74.5 % (40-74); Platelet Count 160 bil/L (150-400)
[2016-05-28] MEDS: Fluticasone-Salmeterol 500-50 Inhaler INHALATION SCH ×2 (08:56→20:57)
[2016-05-28] MEDS: Pantoprazole 20 mg ER24 Tablet PO SCH (08:56)
--- NOTE | 2016-05-28 14:04 | PCM.PNMED ---
Subjective Date of Service May 28, 2016 Subjective Patient seen this morning, no complaints and denies chest pain or shortness of breath. Educated about low salt diets and decreasing frequency of eating out in restaurants. Continues to be on oxygen and will likely need home oxygen. Hyperkalemic today, plan for discharge tomorrow Exam Vital Signs Vital Sign - Last Date Time Temp Pulse Resp B/P Pulse Ox O2 Delivery O2 Flow Rate FiO2 05/28/16 12:35 20 93 Nasal Cannula 3.00 05/28/16 07:36 76 05/28/16 05:02 36.4 148/77 Intake and Output 05/27/16 05/27/16 05/28/16 Cumulative From/Thru 15:00 23:00 07:00 05/25/16 12:12 - 05/28/16 05:02 Intake Total 1340 ml 1600 ml 5360 ml Output Total 2240 ml 2700 ml 97092 ml Balance -900 ml -1100 ml -5280 ml Intake Oral 1340 ml 1600 ml 5360 ml Output Urine Total 2240 ml 2700 ml 90265 ml # Voids 1 # Bowel Movements 1 0 1 Exam NAD A and O x 3 mood affect WNL, up in chair with nasal cannula NC/AT no icterus no injected eyes EOMI PERRL /no pharyngeal lesions/ no oral lesions / hearing intact Supple neck CTAB equal chest rise / no accessory muscle use / speaks in full sentences / no rrw RRR S1 S2 / no mrg / 2+ radial pulses Soft nt nd + BS no hepatosplenomegaly no cyanosis no ecchymosis of lower extremities, 2+ extremity edema bilaterally No rash / no jaundice Ambulating around room IVs and Medications Medications Reviewed: Medications were reviewed in detail Lab and Diagnostics Result Diagram: 05/28/16 0827 05/28/16 1120 X-Rays, CTs and MRIs CT angiogram IMPRESSION: 1. No evidence for pulmonary embolus. 2. Increase in abnormal soft tissue thought to be malignant involving paratracheal lymph nodes right hilar lymph nodes and right suprahilar mass compared to CT PE study of 03/27/16. 3. Decreasing size of the right mainstem bronchus, bronchus intermedius and complete occlusion of the right middle lobe bronchi with some volume loss in the right lung compared to the previous study. Dictated by: Ponce Armendariz M.D. on 05/25/2016 at 14:01 Assessment & Plan ANASARCA/ACUTE ON CHRONIC DEPENDENT EDEMA, acute hypoxic respiratory failure due to dieatary indiscretion, bronchus stem occlusion and new chemotx po medication -- Holding on therapy met, appreciate recommendation --DIURESE LASIX 40 tid--> weaned to q12, monitor electrolytes likely discharged tomorrow with home 40 mg orally twice a day -- Received radiation on May 27 -- Possibly start radiation early next week per oncology TIME SPENT WITH PATIENT: Approximately 1 hour and 5 minutes were spent in counseling and coordination of care. Urinary urgency, stable --PVR, IBRAHIM PRN INCOMPLETE BLADDER EMPTY -- Continue Flomax Chronic issues known prior to admission, present on admission peripheral edema anemia multifactorial, possibly chemotherapy-induced. transfused by oncologist in past prostate cancer gleason7 and advanced lung adenocarcinoma stage 3b Hypertension GERD -- Resume lisinopril today. Continue holding amlodipine due to lower extremity edema Diet REGULAR DVT prophylaxis lovenox ambulate Code FULL Disposition discharge home tomorrow with home oxygen Assessment and plan were discussed with patient . Pain Evaluation: Adequate Pain Control VTE Prophylaxis: Sub-Q Enoxaparin Resuscitation Status: CPR: Attempt Resuscitation Time spent 35 minutes spent with evaluation and management Arturo Hong DO May 28, 2016 14:04
--- NOTE | 2016-05-28 16:49 | NUR ---
Social Work: Initial Assessment Data & Assessment: EMR Reviewed. See Initial assessment. Patient is a 66 y/o male that admitted due to hypoxia and lung cancer. SW met with patient at bedside to complete initial assessment, discuss discharge planning and SW role reviewed. Patient's NOK/DPOA is his Radha Josue- [phone]. SW requested a copy of DPOA. Patient confirmed that his PCP is Wayne MELGOZA MD. Patient's insurance is [employer]. Patient's re-admt score is high at 5. Patient is independent with ADL's at baseline. Patient lives in a two story home with 2 steps to enter with his and 15 steps on the inside. Patient does not have to go up the stairs. Patient does not have VA or LTC benefits. Patient does not have any DME and no SNF or HH history. SW provided patient with Senior resource guide. Patient does not have any discharge plans at the current time. SW will continue to follow. Plan: Patient likely to discharge home with spouse via POV. SW will continue to follow. Everardo Alex LMSW, ARCHANA Addendum: 05/28/16 at 1700 by EVERARDO TSAI Amended: Links added.
--- NOTE | 2016-05-28 17:10 | NUR ---
Potassium/Anxiety Lab draw at this time for repeat potassium level. Will await result and FYI Page Dr. Hong with results. Patient exhibits increased anxiety and intermittently emotional regarding health status. Wrote results outcome on board so patient can see trend.
[2016-05-29 05:16] VITALS: BP 132/80; PULSE 90; RESP 20; O2SAT 98
[2016-05-29] MEDS: Furosemide 10 mg/mL 4 mL Inj IVPUSH SCH (05:44)
[2016-05-29 06:49] LABS: BASOPHILS % (AUTO) 0.4 % (0-3); EOSINOPHILS % (AUTO) 2.1 % (0-5); MONOCYTES % (AUTO) 9.4 % (4-12); Mean Corpuscular Hemoglobin 25.6 pg (27.0-35.0); NEUTROPHILS % (AUTO) 74.1 % (40-74); Platelet Count 149 bil/L (150-400)
--- NOTE | 2016-05-29 07:42 | NUR ---
Labs/Pain Pt reports pain 9-10 in shoulder- managed with PRN oxycodone 30mg and APAP. Pt sleeps in chair at bedside. Edema noted BLE. Lasix given in am. No complaints of SOB or Chest pain, remains on supplemental O2. Care continues
[2016-05-29 07:47] VITALS: PULSE 93; RESP 20; O2SAT 94
[2016-05-29] MEDS: Albuterol-Ipratropium 3 mL Inhalation Solution NEB SCH (07:47)
[2016-05-29] MEDS: Pantoprazole 20 mg ER24 Tablet PO SCH (08:16)
[2016-05-29] MEDS: Fluticasone-Salmeterol 500-50 Inhaler INHALATION SCH (08:16)
[2016-05-29] MEDS ORDERED: Furosemide 10 mg/mL 2 mL Inj IV ONE (08:45)
--- NOTE | 2016-05-29 10:45 | PCM.DIMED ---
Discharge Instructions Date of Service May 29, 2016 Dates of Hospitalization May 25, 2016 at 15:05 Discharge Diagnosis Discharge Diagnosis ANASARCA/ACUTE ON CHRONIC DEPENDENT EDEMA, acute hypoxic respiratory failure bronchus stem occlusion with history of advanced lung adenocarcinoma stage IIIB Prostate cancer anemia multifactorial, possibly chemotherapy-induced Hypertension GERD Medication Instructions Please take Lasix 40 mg orally twice a day in follow-up with her primary care physician and oncologist within 1 week You will be discharged with home oxygen 3 L/m Test Results CT angiogram IMPRESSION: 1. No evidence for pulmonary embolus. 2. Increase in abnormal soft tissue thought to be malignant involving paratracheal lymph nodes right hilar lymph nodes and right suprahilar mass compared to CT PE study of 03/27/16. 3. Decreasing size of the right mainstem bronchus, bronchus intermedius and complete occlusion of the right middle lobe bronchi with some volume loss in the right lung compared to the previous study. Dictated by: Ponce Armendariz M.D. on 05/25/2016 at 14:01 Chest x-ray IMPRESSION: 1. Left lung base atelectasis versus pneumonia. 2. No change in right lung scarring. Dictated by: Silke Kennedy M.D. on 05/25/2016 at 12:54 Diet Low fat, Low Sodium, Heart Healthy Activity No restrictions Call your provider Fever or Chills, Shortness of breath, Chest pain Patient Instructions You have been hospitalized with breathing issues and increased swelling of the legs due to increased salt intake as well as the chemotherapy medication that he was taking. You have had underlying lung problems including a prior history of cancer which have compromised lung function will be discharged with home oxygen to use at home Follow up with the primary care doctor in 1 week and please follow-up with your oncologist to discuss your further radiation treatments, please call to schedule appointment Follow-up plan As above Follow-up with PCP in: 1 week Provider: Alton Lang MD Follow-up in: 1 week Arturo Hong DO May 29, 2016 10:32
--- NOTE | 2016-05-29 10:53 | PCM.DC.MED ---
Discharge Summary Date of Service May 29, 2016 Dates of Hospitalization Date of Hospital Admission May 25, 2016 at 15:05 Date of Discharge: May 29, 2016 Providers: Admitting Physician: Wander Garduno MD Primary Care Physician: Wayne Austin Attending Physician: Wander Garduno MD Diagnosis at Time of Discharge Diagnosis at Time of Discharge ANASARCA/ACUTE ON CHRONIC DEPENDENT EDEMA, acute hypoxic respiratory failure bronchus stem occlusion with history of advanced lung adenocarcinoma stage IIIB Prostate cancer anemia multifactorial, possibly chemotherapy-induced Hypertension GERD Consultations Oncology Procedures XRay, CTs & MRIs CT angiogram IMPRESSION: 1. No evidence for pulmonary embolus. 2. Increase in abnormal soft tissue thought to be malignant involving paratracheal lymph nodes right hilar lymph nodes and right suprahilar mass compared to CT PE study of 03/27/16. 3. Decreasing size of the right mainstem bronchus, bronchus intermedius and complete occlusion of the right middle lobe bronchi with some volume loss in the right lung compared to the previous study. Dictated by: Ponce Armendariz M.D. on 05/25/2016 at 14:01 Brief History History of present illness as per admitting physician: 66-year-old male with progressive hypoxia for the last 3 weeks after he started crizotinib regimen for lung cancer (also prostate cancer), associated worsening of fluid overload despite lasix since prior to thismedication by oncology. Anasarca with weight gain of 25 pounds/short of breath, eating out w. so some salty food. baseline productive sputum. c/o of imcomplete bladder emtpying s/p lasix in ER though. ER doctor spoke to Dr. Cazares who recommends diuresis and she will call the [facility] for possible bronchus stent placement In the ER, O2 saturation 80% on room air, 40 of Lasix DuoNeb's, Solu-Medrol for diminished breath sounds, CT negative for PE and pneumonia but worsening cancer load and new right mainstem bronchus occlusion. Review of Systems - none of the following - F/C/sick contact / OLGUIN / lightheaded / cp / n/v/diarrhea / bleeding/bruising / l yeast infections / rash pain controlled w/ home meds Hospital Course ANASARCA/ACUTE ON CHRONIC DEPENDENT EDEMA, acute hypoxic respiratory failure due to dietary indiscretion, bronchus stem occlusion and new chemotx po medication -- Not chemotherapy medication has been discontinued per oncology appreciate recommendation --DIURESE LASIX 40 tid--> weaned to q12, monitor electrolytes likely discharged tomorrow with home regimen of 20 mg twice daily -- improved during hospitalization, patient decreased approximately 22 pounds -- Received radiation on May 27 -- Possibly start radiation early next week per oncology Urinary urgency, stable -- Continue Flomax - patient discharge continue Flomax Anemia multifactorial, possibly chemotherapy-induced. transfused by oncologist in past prostate cancer gleason7 and advanced lung adenocarcinoma stage 3b Hypertension GERD -- Resumed lisinopril during hospitalization and amlodipine upon discharge Discharge diet, patient canceled length about sodium restriction given his significant lower extremity edema and noted that he had eaten Occitan food with soy sauce or to his hospitalization Patient acute a full CODE STATUS during his hospitalization Disposition discharge home tomorrow with home oxygen Assessment and plan were discussed with patient . Exam Vital Signs (Last) Date Time Temp Pulse Resp B/P Pulse Ox O2 Delivery O2 Flow Rate FiO2 05/29/16 08:22 Supplement Oxygen 05/29/16 07:47 93 20 94 3.00 05/29/16 05:16 36.4 132/80 Exam AD A and O x 3 mood affect WNL, up in chair with nasal cannula NC/AT no icterus no injected eyes EOMI PERRL /no pharyngeal lesions/ no oral lesions / hearing intact Supple neck CTAB equal chest rise / no accessory muscle use / speaks in full sentences / no rrw RRR S1 S2 / no mrg / 2+ radial pulses Soft nt nd + BS no hepatosplenomegaly no cyanosis no ecchymosis of lower extremities, 2+ extremity edema bilaterally but improved from admission No rash / no jaundice Ambulating around room Test 05/25/16 12:34 05/25/16 18:18 05/26/16 05:55 05/26/16 12:15 Prothrombin Time 10.8sec (8.1-12.5) Prothromb Time International Ratio 1.01ratio Activated Partial Thromboplast Time 32.3sec (22.8-33.0) Hemoglobin A1c 5.8% (4.8-5.6) Total Bilirubin 0.3mg/dL (0.0-1.2) Aspartate Amino Transf (AST/SGOT) 30U/L (0-50) Alanine Aminotransferase (ALT/SGPT) 27U/L (0-44) Alkaline Phosphatase 80U/L (25-160) Troponin T < 0.010ug/L (0.0-0.011) Pro-B-Type Natriuretic Peptide 69.40pg/mL (0-376) Total Protein 6.5g/dL (6.4-8.4) Albumin 3.4g/dL (3.4-5.0) Hold Mandel Top Tube Received (Received) Urine Color Yellow (YELLOW) Urine Appearance Clear (CLEAR,HAZY) Urine pH 5.5 (5.0-8.0) Urine Specific Golden 1.025 (1.003-1.035) Urine Protein Negativemg/dL (NEG,TRACE) Urine Glucose (UA) Negativemg/dL (NEGATIVE) Urine Ketones Negativemg/dL (NEGATIVE) Urine Occult Blood Negative (NEGATIVE) Urine Nitrite Negative (NEGATIVE) Urine Bilirubin Negative (NEGATIVE) Urine Urobilinogen Normalmg/dL (NORMAL) Urine Leukocyte Esterase Negative (NEGATIVE) Urine RBC 0-2/hpf (0-2) Urine WBC 0-5/hpf (0-5) Urine Epithelial Cells None/hpf (NONE-MOD) Urine Crystals None seen (NONE SEEN) Urine Bacteria None/hpf (NONE-FEW) Urine Hyaline Casts None/lpf (NONE) Urine Granular Casts None seen (NONE SEEN) Urine Waxy Casts None seen (NONE SEEN) Urine Red Blood Cell Casts None seen (NONE SEEN) Urine White Blood Cell Casts None seen (NONE SEEN) Urine Mucus None seen (None Seen) Urine Trichomonas None seen (NONE SEEN) Urine Yeast None (NONE SEEN) Urinalysis Comment None Urine Culture Reflexed Not indicated Phosphorus Level 5.4mg/dL (2.5-4.9) Magnesium Level 2.0mg/dL (1.6-2.6) Hold Urine Received (Received) Test 05/29/16 06:35 White Blood Count 7.2th/mm3 (3.8-10.1) Red Blood Count 3.01mil/mm3 (4.40-5.80) Hemoglobin 7.7g/dL (13.8-17.2) Hematocrit 25.9% (41.0-50.0) Mean Corpuscular Volume 86.0fL (81-100) Mean Corpuscular Hemoglobin 25.6pg (27.0-35.0) Mean Corpuscular Hemoglobin Concent 29.7% (32.0-37.0) Red Cell Distribution Width 16.8% (12.3-15.4) Platelet Count 149bil/L (150-400) Neutrophils (%) (Auto) 74.1% (40-74) Lymphocytes (%) (Auto) 13.3% (14-46) Monocytes (%) (Auto) 9.4% (4-12) Eosinophils (%) (Auto) 2.1% (0-5) Basophils (%) (Auto) 0.4% (0-3) Sodium Level 140mEq/L (134-144) Potassium Level 4.5mEq/L (3.5-5.2) Chloride Level 96mEq/L (97-108) Carbon Dioxide Level 32mmol/L (18-29) Blood Urea Nitrogen 26mg/dL (8-27) Creatinine 0.76mg/dL (0.76-1.27) Estimat Glomerular Filtration Rate 109mL/min (>59) Glucose Level 103mg/dL (60-99) Calcium Level 8.6mg/dL (8.5-10.1) Discharge Medications Discharge Medications Amlodipine (Amlodipine) 10 Mg Tablet 10 MG PO DAILY (Reported) Fluticasone/Salmeterol (Advair 500-50 Diskus) 1 Each Disk.w.dev 1 PUFF INHALATION BID (Reported) Furosemide (Furosemide) 20 Mg Tab 20 MG PO BID (Reported) Gabapentin (Gabapentin) 100 Mg Capsule 300 MG PO TID (Reported) Levothyroxine (Levothyroxine) 175 Mcg Tablet 175 MCG PO DAILY (Reported) Lisinopril (Lisinopril) 20 Mg Tablet 20 MG PO DAILY (Reported) Omeprazole (Omeprazole) 40 Mg Capsule.dr 20 MG PO DAILY (Reported) Oxycodone ER (Oxycontin) 15 Mg Tab.er.12h 30 MG PO BID (Reported) Tamsulosin (Flomax) 0.4 Mg Capsule 0.8 MG PO HS (Reported) Trazodone (Trazodone) 50 Mg Tablet 50 MG PO HS (Reported) As needed Albuterol HFA (Proair HFA) 8.5 Gm Hfa.aer.ad 2 PUFFS INHALATION Q4H PRN PRN For Wheezing (Reported) Oxycodone (Roxicodone) 5 Mg Tablet 15 MG PO QID PRN PRN For Pain (Reported) Additional med instructions Please take Lasix 40 mg orally twice a day in follow-up with her primary care physician and oncologist within 1 week You will be discharged with home oxygen 3 L/m Followup Plan Follow-up plan As above Discharge Diet: Low fat, Low Sodium, Heart Healthy Discharge Activity: No restrictions Patient Instructions You have been hospitalized with breathing issues and increased swelling of the legs due to increased salt intake as well as the chemotherapy medication that he was taking. You have had underlying lung problems including a prior history of cancer which have compromised lung function will be discharged with home oxygen to use at home Follow up with the primary care doctor in 1 week and please follow-up with your oncologist to discuss your further radiation treatments, please call to schedule appointment Follow-up with PCP in: 1 week Provider: Alton Lang MD Follow-up in: 1 week Time spent 35 minutes spent with discharge and evaluation of this patient copies to: Alton Lang MD, David DO May 29, 2016 10:53
--- NOTE | 2016-05-29 11:15 | NUR ---
Social Work: YESSICA YESSICA signed by patient's .
--- NOTE | 2016-05-29 12:00 | NUR ---
Discharge Pt d/c'd home at 1115. Reviewed d/c instructions w/ patient and his , all questions answered. IV d/c'd intact. No new RX to send home with patient. Spoke to , pt only supposed to take 20mg Lasix BID, called and left message for patient to update this. Pt left via w/c w/ all belongings to his 's POV.
[2016-06-03] MEDS ORDERED: LEVO200T6 PO (09:16)
[2016-06-15] MEDS ORDERED: PRE20 PO (11:43)
[2016-06-15] MEDS ORDERED: DXM4T PO (11:43)
[2016-08-03] MEDS ORDERED: [UNRECOGNIZED DRUG - OTHER] PO (14:22)
[2016-08-03] MEDS ORDERED: DXM4T PO (15:50)
[2016-08-11] MEDS ORDERED: DXM4T PO (11:33)
[2016-08-30] MEDS ORDERED: [UNRECOGNIZED DRUG - OTHER] (08:45)
[2016-09-14] MEDS ORDERED: OMEP20CA11 PO (10:16)
[2016-09-14] MEDS ORDERED: FENT1PAT6 TRANSDERM (10:16)
[2016-09-14] MEDS ORDERED: LEVO200T6 PO (10:16)
[2016-09-14] MEDS ORDERED: POLY17PO6 PO (10:16)
[2016-09-14] MEDS ORDERED: HYDR2TAB28 PO (10:16)
[2016-09-27] MEDS ORDERED: FENT1PAT7 TRANSDERM (10:33)
== END 2016-05-29 11:15 | disposition home or self-care (01) | DRG 189 ==
LOC: SED 12:04 → OSC 15:05 → OBSVTOIN 15:05
PROVIDERS: ADMIT Urology; ATTEND Urology
DX: J96.01 Acute respiratory failure with hypoxia (principal); C34.91 Malignant neoplasm of unspecified part of right bronchus or lung; R60.1 Generalized edema; I10 Essential (primary) hypertension; K21.9 Gastro-esophageal reflux disease without esophagitis; C61 Malignant neoplasm of prostate; T45.1X5A Adverse effect of antineoplastic and immunosuppressive drugs, initial encounter; D64.81 Anemia due to antineoplastic chemotherapy

== ENCOUNTER 2016-06-17 06:53 | Day surgery (SDC) | payer MEDICARE ==
[~2016-06-17] VITALS: Ht 172.7 cm; Wt 117.8 kg
[~2016-06-17 06:53] MED LIST changes: -ADV100INH IH; -CRIZ250C PO; +CeFAZolin Inj 3 GM in IV Premix 1 EACH IV ONE; +DXM4T PO; +FLUT1DIS5 INHALATION; +FUR20 PO; -FURO40TA4 PO; -LEVO175T5 PO; +LEVO200T6 PO; +PRE20 PO
[2016-06-17] MEDS ORDERED: Propofol 10,000 mCg/mL 20 mL Inj ONE (06:54)
[2016-06-17] MEDS ORDERED: fentaNYL-PF 50 mCg/mL 2 mL Inj ONE (06:54)
[2016-06-17] MEDS: Lactated Ringer's 1,000 ML IV SCH ×2 (07:12→10:25)
[2016-06-17 07:34] VITALS: BP 120/66; PULSE 92; RESP 18; O2SAT 95
[2016-06-17] MEDS ORDERED: ACET-171 PO (07:52)
[2016-06-17] MEDS ORDERED: DEXA10VI8 INJ (07:52)
[2016-06-17] MEDS ORDERED: CeFAZolin Inj 2 gm / 50mL D5W IV ONE (07:55)
[2016-06-17] MEDS ORDERED: CeFAZolin Inj 2 GM in IV Premix 1 EACH IV ONE (08:00)
--- NOTE | 2016-06-17 10:36 | PCM.HPANE ---
Patient Data Date of Service: Jun 17, 2016 (1020) Surgeon Admitting Provider: Attending Provider:Michelet Cárdenas MD Primary Care Physician:Johnathan Monreal MD Other Provider:Ozzy Lomas Anesthesia Reason for Visit Lung Cancer Ht/WT & BMI Height (Feet): 5 Height (Inches): 8 Weight (Kilograms): 117.8 Body Mass Index 39.00 Allergies Coded Allergies: No Known Allergies (Unverified , 05/25/16) Past Anesthesia History Anesthesia History: Denies:: Abnormal Airway, Anesthesia Reactions, Difficult Intubation, Fam Anesthesia Reaction, Fam Malignant Hypertherm, Malignant Hyperthermia Diabetes History Hx Diabetes?: No MRSA MRSA: No Medications Hypertension Medication: Yes Home Meds Incl Beta Shelia: No Reported Medications Acetaminophen 500 Mg [id number] Mg PO Q6H PRN For Fever 06/17/16 Dexamethasone Inj 10 Mg/1 Ml Vial10 Mg INJ WEEKLY 06/17/16 Levothyroxine 200 Mcg Fswodw955 Mcg PO DAILY Ref 0 06/03/16 Furosemide 20 Mg Tab20 Mg PO DAILY 05/25/16 Fluticasone/Salmeterol (Advair 500-50 Diskus)1 Each Disk.w.dev1 Puff INHALATION BID 05/25/16 Albuterol HFA (Proair HFA)8.5 Gm Hfa.aer.ad2 Puffs INHALATION Q4H PRN For Wheezing 05/25/16 Trazodone 50 Mg Ocevyl93 Mg PO HS 04/06/16 Omeprazole 40 Mg Capsule.dr20 Mg PO DAILY 04/06/16 Lisinopril 20 Mg Auompl74 Mg PO DAILY 04/06/16 Gabapentin 100 Mg Aiexvsb623 Mg PO TID 04/06/16 Tamsulosin (Flomax)0.4 Mg Capsule0.8 Mg PO HS 04/06/16 Amlodipine 10 Mg Fvowix76 Mg PO DAILY 04/06/16 Oxycodone (Roxicodone)5 Mg Sbvkgd69 Mg PO QID PRN For Pain 03/30/16 Oxycodone ER (Oxycontin)15 Mg Tab.er.12h30 Mg PO BID 03/30/16 Discontinued Reported Medications Prednisone (PredniSONE)20 Mg Vfxqxg65 Mg PO DAILY Ref 0 06/15/16 Dexamethasone 4 Mg Tablet4 Mg PO BID Ref 0 06/15/16 History History of ENT Problems?: No HEENT History: Positive for:: Hearing Problem Denies:: Abnormal Airway Difficult Intubation Hx of Heart Problems?: Yes Cardiovascular History: Positive for:: Edema Hypertension Denies:: Atrial Fibrillation Cardiac Surgery Chest Pain Congestive Heart Failure Irregular Heartbeat Pacemaker Thrombophlebitis Other Cardiac History: hx of anemia, new onset stasis ulcers Hx of Respiratory Problem?: Yes Respiratory History: Positive for:: Dyspnea Oxygen Administration Pneumonia Denies:: Asthma COPD Chest Surgery Emphysema Hemoptysis Tuberculosis Use of C-PAP Machine Other Resp Pertinent History: lung cancer- recent hospital admission May 2016 for progressive dyspnea Hx Neurologic Problems?: No Neurological History: Denies:: CVA Dementia Hx of GI Problems?: Yes Gastrointestinal History: Positive for:: Gastrointestinal Bleeding Denies:: Diverticulitis Gastroesphageal Reflux Heartburn Hepatitis Hiatal Hernia Rectal Bleeding Hx of Problems?: No Genitourinary History: Denies:: HX of Hemodialysis Kidney Stones Urinary Tract Infection HX of Peritoneal Dialysis: No Male Hx: Positive for:: Prostate Problems (Prostate CA) Denies:: Scrotal Mass Testicular Surgery Skin History: Denies:: History Skin Disorders? Pressure Ulcers Hx Musculoskeletal Problems?: Yes Musculoskeletal History: Positive for:: Back Injury (r/t arthritis) Denies:: Joint Replacement Musculoskeletal Trauma Hx of Psycho/Social Problems?: No Psycho Social History: Denies:: Anxiety Hx Depression Hx Surgeries?: No Hx Any Other Health Problems?: Yes Other History: Positive for:: Cancer (Prostate and Lung CA) Hospitalization Thyroid Disease (hypothyroidism) History Blood Transfusions: Positive for:: Blood Transfusions (last iron infusion 05/20/16) Hx Diabetes: No Hx Alcohol Use: NoHx Substance Use: No Smoking Status: Former Smoker Stop/Bang Treated for Sleep Apnea?: No Do You Have a CPAP Machine?: No P-Blood Pressure: treated: Yes B- Body Mass Index > 35 kg/m2: Yes A- Age over 50: Yes N- Neck Large Circumference: Yes G- Gender Male: Yes ANNABELLA Risk Assessment: High Risk, =/>3 Yes ANNABELLA Category 4 OutPt Procedure: Yes Risk Assessment Category Category 1A: Patient has history of documented sleep apnea, and HAS NOT received any narcotic, sedative or anesthesia administration during this stay. Category 1B: Patient has history of documented sleep apnea, and HAS received any narcotic , sedative or anesthesia administration during this stay Category 2: Patient has SUSPECTED Obstructive Sleep Apnea, and HAS received any narcotic , sedative or anesthesia administration during this stay. Category 3: Patient has SUSPECTED Obstructive Sleep Apnea and HAS NOT received narcotic, sedative or anesthesia administration during this stay. Category 4: Outpatient in Procedural Areas with known sleep apnea or who screen positive for High Risk via the STOP/BANG questionnaire. Exam Exam Vital Signs Vital Signs Date Time Temp Pulse Resp B/P Pulse Ox O2 Delivery O2 Flow Rate FiO2 06/17/16 07:34 36.7 92 18 120/66 95 Nasal Cannula 3 06/17/16 07:26 Supplement Oxygen General Appearance: Alert, Oriented X3, Cooperative HEENT/AIRWAY: MP 2 Lungs: Diminished Heart: Exam Unremarkable, Regular Rate/Rhythm Meds/Labs/Diagnostics Admission Meds Current Medications Lactated Ringer's (Lr) 1,000 ml @ 120 mls/hr Q8H20M IV Last administered on t 07:12; Start 06/17/16 at 05:00; Stop 06/17/16 at 13:19 Plan Impression Patient chart reviewed, patient interviewed and anesthestic plan with risks, benefits, and alternatives discussed, and informed consent obtained. NPO Status: 06/16/16 1800 ASA Physical Status: ASA3 Severe Disease Anesthetic Plan: MAC Bene/Risks/Altern/Consents: Yes HP Complete Prior to Induction: Yes Barney Pat MD Jun 17, 2016 10:36
[2016-06-17] MEDS ORDERED: Lactated Ringer's 500 ML IV PRN (10:38)
[2016-06-17] MEDS ORDERED: Lactated Ringer's 1,000 ML IV SCH (10:38)
[2016-06-17] MEDS ORDERED: Ondansetron 2 mg/mL 2 mL Inj IVPUSH PRN (10:40)
[2016-06-17] MEDS ORDERED: MetoCLOpramide 5 mg/mL 2 mL Inj IVPUSH PRN (10:40)
[2016-06-17] MEDS ORDERED: fentaNYL-PF 50 mCg/mL 2 mL Inj IVPUSH PRN (10:40)
[2016-06-17] MEDS ORDERED: Dexamethasone 4 mg/mL Inj IVPUSH PRN (10:40)
[2016-06-17] MEDS ORDERED: HYDROmorphone 1 mg/mL Inj IVPUSH PRN (10:40)
[2016-06-17] MEDS ORDERED: Albuterol 2.5 mg/3 mL Inhalation Solution NEB PRN (10:40)
[2016-06-17] MEDS ORDERED: Bupivacaine-MPF 0.5% W/EPI 30 mL Inj INFILTRATE ONE (10:43)
[2016-06-17] MEDS ORDERED: HepLOK Flush 100 unit/mL 5 mL Inj IVFLUSH ONE (10:47)
[2016-06-17] MEDS ORDERED: Lidocaine PF 1% 30 mL Inj INFILTRATE ONE (10:47)
[2016-06-17] MEDS ORDERED: Bupivacaine 0.5%/EPI 50 mL Inj INFILTRATE ONE (10:47)
--- NOTE | 2016-06-17 11:30 | NUR ---
Wound Care Pt seen for rewrapping of his legs, xeroform to open areas, Unna wraps bilaterally, kerlix wrap and then coban. Pt to follow up at the wound center 06/23 for rewrap.
--- NOTE | 2016-06-17 12:09 | PCM.ANEP2 ---
Post Anesthesia Evaluation ASA/CMS Post Anesthesia VS in Patient's Normal Range?: Yes Resp Stable; Airway Patent?: Yes CV Function & Hydration Stable: Yes Mental Status Recovered?: Yes Pain control Satisfactory?: Yes N/V Control Satisfactory?: Yes Barney Pat MD Jun 17, 2016 12:09
--- NOTE | 2016-06-17 12:09 | PCM.ANEP1 ---
Post Anesthesia Phase 1 PACU Phase 1 Assessment Date of Service: Jun 17, 2016 (1020) Vital Signs 136/68, 102, 97% 10L, 36.4, 20 Vital Signs Date Time Temp Pulse Resp B/P Pulse Ox O2 Delivery O2 Flow Rate FiO2 06/17/16 07:34 36.7 92 18 120/66 95 Nasal Cannula 3 06/17/16 07:26 Supplement Oxygen Anesthetic Administered: GA Level of Alertness: Awake, talking TOBIN's with Equal Strength: Yes Pain: No Nausea or Vomiting: No Oxygen Delivery: Simple Mask Lungs: Diminished Dermatome Level: Full Sensation Summary TOLERATED MAC WELL Barney Pat MD Jun 17, 2016 12:09
[2016-06-17 12:21] VITALS: BP 135/72; PULSE 105; RESP 16; O2SAT 97
--- NOTE | 2016-06-17 12:27 | OP ---
[address] [address] OPERATIVE REPORT PATIENT: VALARIE RIVAS : 1950 MR#: [id number] ADMIT: 06/17/2016 JOB ID: [id number] DATE OF SURGERY: 06/17/2016 ANESTHESIA: MAC. PREOPERATIVE DIAGNOSIS(ES): Lung cancer. POSTOPERATIVE DIAGNOSIS(ES): Lung cancer. OPERATIVE PROCEDURE: Insertion of left subclavian vein Port-A-Cath using both ultrasound and fluoroscopy with interpretation (22 modifier dictated due to increased difficulty of the case due to the patient's body habitus requiring more than twice the usual amount of time and increased equipment utilization). SURGEON: Michelet Cárdenas MD APPLIED PSYCHOLOGY PROFESSOR: ISAIAS Garcia COMPLICATIONS: None. ESTIMATED BLOOD LOSS: Minimal. CONDITION: Satisfactory. SPECIMEN: None. FINDINGS: Attempt was made to the left subclavian vein. Given the patient's large chest, I never actually could find the vein. I then went to the left internal jugular. INDICATION/SIGNIFICANT HISTORY: The patient is a 66-year-old male with a recent history of both prostate cancer and lung cancer who is scheduled to begin chemotherapy in the near future. OPERATIVE TECHNIQUE: The patient was taken to the operating room and placed in supine position. Light sedation was administered. Preoperative antibiotics were given. The neck and chest were prepped and draped in standard surgical fashion and a procedure pause was performed. Attempt was made to access the left subclavian vein. Multiple attempts were made, but I never could find the vein. The patient has a very large chest. I then attempted to go the left internal jugular using ultrasound. However, the patient had a henry which had not been shaved very high. Therefore, we removed the drapes, shaved his henry higher up, and then re-prepped and draped. Then, using ultrasound, I was able to access the left internal jugular vein. Using fluoroscopy, I confirmed I was within the vein, as I could see the wire coursing through the heart into the inferior vena cava. The left anterior chest was anesthetized. A pocket was created in subcutaneous tissue. The Port-A-Cath was secured in place using three 2-0 Prolene sutures. The catheter was then tunneled up to the wire exit point and inserted into the vein. This was confirmed with visualization using Seldinger technique. Good final position was confirmed. The port aspirated and flushed nicely. This was locked with heparin. The skin was then closed using 3-0 Vicryl deep dermal followed by a running 4-0 Monocryl. Dermabond was applied. The entire procedure was well tolerated.
[2016-06-17] MEDS ORDERED: oxyCODONE-Acetamin 5-325 mg Tablet PO PRN (12:55)
[2016-06-17 12:57] VITALS: BP 127/69; PULSE 102; RESP 16; O2SAT 95
--- NOTE | 2016-06-17 14:59 | DRSVH ---
PROCEDURE: X-RAY CHEST ONE VIEW, PORTABLE ([id number]) INDICATIONS: port TECHNIQUE: One view of the chest was acquired. COMPARISON: [facility], CR, XR CHEST 1VW (PORTABLE), 05/25/2016, 12:32[facility]ST 1VW (PORTABLE), 04/07/2016, 13:15. FINDINGS: Surgical changes and devices: Port-A-Cath from a left-sided approach extends inferiorly into the supe rior right atrium. Lungs and pleura: No pleural effusions or pneumothorax. Lungs are unchanged with asymmetric elevati on of the right hemidiaphragm previously present.. Mediastinum: Mediastinal contours appear normal. Heart size is normal. Bones and chest wall: No suspicious bony lesions. Overlying soft tissues appear unremarkable. IMPRESSION: No pneumothorax after central line placement, central line tip extends in the superior ri ght atrium. Dictated by: Jun Luis M.D. on 06/17/2016 at 14:56 Approved by: Jun Luis M.D. on 06/17/2016 at 14:57
[2016-08-03] MEDS ORDERED: [UNRECOGNIZED DRUG - OTHER] PO (14:22)
[2016-08-03] MEDS ORDERED: DXM4T PO (15:50)
[2016-08-11] MEDS ORDERED: DXM4T PO (11:33)
[2016-08-30] MEDS ORDERED: [UNRECOGNIZED DRUG - OTHER] (08:45)
[2016-09-14] MEDS ORDERED: POLY17PO6 PO (10:16)
[2016-09-14] MEDS ORDERED: FENT1PAT6 TRANSDERM (10:16)
[2016-09-14] MEDS ORDERED: LEVO200T6 PO (10:16)
[2016-09-14] MEDS ORDERED: HYDR2TAB28 PO (10:16)
[2016-09-14] MEDS ORDERED: OMEP20CA11 PO (10:16)
[2016-09-27] MEDS ORDERED: FENT1PAT7 TRANSDERM (10:33)
== END 2016-06-17 23:59 | disposition home or self-care (01) ==
LOC: SAS 06:53
PROVIDERS: ATTEND General Practice
DX: C34.91 Malignant neoplasm of unspecified part of right bronchus or lung (principal); C61 Malignant neoplasm of prostate; Z92.21 Personal history of antineoplastic chemotherapy; I10 Essential (primary) hypertension; E78.5 Hyperlipidemia, unspecified; I73.9 Peripheral vascular disease, unspecified; E66.01 Morbid (severe) obesity due to excess calories; F10.10 Alcohol abuse, uncomplicated; Z68.41 Body mass index [BMI] 40.0-44.9, adult
CPT/HCPCS: 29580; 36561; 71010; 77001; C1788; J0690; J1642; J2250; J3010; J7120

== ENCOUNTER 2016-07-15 17:06 | Emergency (ER) | payer MEDICARE ==
[~2016-07-15] VITALS: Ht 172.7 cm; Wt 107.7 kg
[~2016-07-15 17:06] MED LIST changes: +ACET-171 PO; -CeFAZolin Inj 3 GM in IV Premix 1 EACH IV ONE; -DXM4T PO; -PRE20 PO
[2016-07-15 17:23] VITALS: BP 120/70; PULSE 107; RESP 20; O2SAT 93
[2016-08-03] MEDS ORDERED: [UNRECOGNIZED DRUG - OTHER] PO (14:22)
[2016-08-03] MEDS ORDERED: DXM4T PO (15:50)
[2016-08-11] MEDS ORDERED: DXM4T PO (11:33)
[2016-08-30] MEDS ORDERED: [UNRECOGNIZED DRUG - OTHER] (08:45)
[2016-09-14] MEDS ORDERED: HYDR2TAB28 PO (10:16)
[2016-09-14] MEDS ORDERED: OMEP20CA11 PO (10:16)
[2016-09-14] MEDS ORDERED: POLY17PO6 PO (10:16)
[2016-09-14] MEDS ORDERED: FENT1PAT6 TRANSDERM (10:16)
[2016-09-14] MEDS ORDERED: LEVO200T6 PO (10:16)
[2016-09-27] MEDS ORDERED: FENT1PAT7 TRANSDERM (10:33)
== END 2016-07-15 18:35 | disposition left against medical advice (07) ==
LOC: SED 17:06
DX: Z53.21 Procedure and treatment not carried out due to patient leaving prior to being seen by health care provider (principal)

== ENCOUNTER 2016-08-16 07:57 | Day surgery (SDC) | payer MEDICARE ==
[~2016-08-16] VITALS: Ht 172.7 cm; Wt 104.0 kg
[~2016-08-16 07:57] MED LIST changes: -ACET-171 PO; -ALBU8.5H2 INHALATION; -FLUT1DIS5 INHALATION; +Lactated Ringer's 1,000 ML IV ONE; +[UNRECOGNIZED DRUG - OTHER] PO
[2016-08-16] MEDS ORDERED: Propofol 10,000 mCg/mL 20 mL Inj ONE (07:58)
[2016-08-16] MEDS ORDERED: Lidocaine PF 1% 30 mL Inj ONE (07:58)
[2016-08-16 08:12] VITALS: BP 109/61; PULSE 102; RESP 14; O2SAT 91
[2016-08-16] MEDS ORDERED: Lactated Ringer's 1,000 ML IV SCH (08:37)
--- NOTE | 2016-08-16 08:37 | PCM.HPANE ---
Patient Data Date of Service: Aug 16, 2016 Surgeon Admitting Provider: Attending Provider:Marbin Medrano MD Primary Care Physician:Johnathan Monreal MD Other Provider:Ozzy Lomas Anesthesia Reason for Visit Anemia, Dysphagia Ht/WT & BMI Height (Feet): 5 Height (Inches): 8 Weight (Kilograms): 104 Body Mass Index 34.00 Allergies Coded Allergies: No Known Allergies (Unverified , 08/15/16) Past Anesthesia History Anesthesia History: Denies:: Abnormal Airway, Anesthesia Reactions, Difficult Intubation, Fam Anesthesia Reaction, Fam Malignant Hypertherm, Malignant Hyperthermia Diabetes History Hx Diabetes?: No MRSA MRSA: No Medications Hypertension Medication: Yes Home Meds Incl Beta Shelia: No Reported Medications [Med Cannibis] No Conflict Check Po Prn 08/03/16 Levothyroxine 200 Mcg [id number] Mcg PO DAILY Ref 0 06/03/16 Furosemide 20 Mg Tab20 Mg PO DAILY 05/25/16 Trazodone 50 Mg [id number] Mg PO HS 04/06/16 Omeprazole 40 Mg Capsule.dr20 Mg PO DAILY 04/06/16 Lisinopril 20 Mg Hmrjga30 Mg PO DAILY 04/06/16 Gabapentin 100 Mg [id number] Mg PO BID 04/06/16 Tamsulosin (Flomax)0.4 Mg Capsule0.8 Mg PO HS 04/06/16 Amlodipine 10 Mg Iheidz03 Mg PO DAILY 04/06/16 Oxycodone (Roxicodone)5 Mg Tablet5-10 Mg PO Q6HRS PRN PRN For Pain 03/30/16 Oxycodone ER (Oxycontin)15 Mg Tab.er.12h15 Mg PO q6hrs prn PRN For Pain 03/30/16 Discontinued Reported Medications Dexamethasone 4 Mg Tablet4 Mg PO QAM Ref 0 1 po qam day before and 2 dys post tx 08/03/16 Acetaminophen 500 Mg [id number] Mg PO Q6H PRN For Fever 06/17/16 Fluticasone/Salmeterol (Advair 500-50 Diskus)1 Each Disk.w.dev1 Puff INHALATION BID 05/25/16 Albuterol HFA (Proair HFA)8.5 Gm Hfa.aer.ad2 Puffs INHALATION Q4H PRN For Wheezing 05/25/16 Dexamethasone 4 Mg Tablet4 Mg PO qam dy of& 2dys post Ref 0 4/6/17 History History of ENT Problems?: No HEENT History: Positive for:: Dysphagia (denies trouble now) Hearing Problem Denies:: Abnormal Airway Difficult Intubation Denture Type: Full- Upper Full- Lower Teeth Condition: Missing Teeth Hx of Heart Problems?: Yes Cardiovascular History: Positive for:: Hypertension Denies:: AICD Atrial Fibrillation Cardiac Surgery Chest Pain Congestive Heart Failure Edema Irregular Heartbeat Pacemaker Thrombophlebitis Valvular Heart Disease (echo 60-65% 04/2016) Hx of Respiratory Problem?: Yes Respiratory History: Positive for:: COPD Dyspnea Oxygen Administration Pneumonia Denies:: Asthma Chest Surgery Cough Emphysema Hemoptysis Tuberculosis Use of C-PAP Machine Hx Neurologic Problems?: No Neurological History: Denies:: CVA Dementia Hx of GI Problems?: Yes Gastrointestinal History: Positive for:: Gastroesphageal Reflux Gastrointestinal Bleeding Hiatal Hernia Denies:: Diverticulitis Gall Bladder Disease Heartburn Hepatitis Liver Disease Rectal Bleeding Hx of Problems?: No Genitourinary History: Denies:: HX of Hemodialysis Kidney Stones Urinary Tract Infection HX of Peritoneal Dialysis: No Male Hx: Positive for:: Prostate Problems (Prostate CA) Denies:: Scrotal Mass Testicular Surgery Skin History: Denies:: History Skin Disorders? Pressure Ulcers Hx Musculoskeletal Problems?: Yes Musculoskeletal History: Positive for:: Back Injury (r/t arthritis) Denies:: Joint Replacement Musculoskeletal Trauma Hx of Psycho/Social Problems?: No Psycho Social History: Denies:: Anxiety Hx Depression Hx Surgeries?: Yes (tonsil) Hx Any Other Health Problems?: Yes Other History: Positive for:: Cancer (Prostate and Lung CA) Hospitalization Thyroid Disease (hypothyroidism) History Blood Transfusions: Positive for:: Blood Transfusions (last iron infusion 05/20/16) Hx Diabetes: No Hx Alcohol Use: NoHx Substance Use: No Smoking Status: Former Smoker Stop/Bang Treated for Sleep Apnea?: Yes Do You Have a CPAP Machine?: No S-Snoring: Do You Snore Loudly: Yes T-Tired: feel tired, fatigued: No O-Obsered: Observed not breath: Yes P-Blood Pressure: treated: Yes B- Body Mass Index > 35 kg/m2: No A- Age over 50: Yes N- Neck Large Circumference: No G- Gender Male: Yes ANNABELLA Total Score: 5 ANNABELLA Risk Assessment: High Risk, =/>3 Yes ANNABELLA Category 4 OutPt Procedure: Yes Risk Assessment Category Category 1A: Patient has history of documented sleep apnea, and HAS NOT received any narcotic, sedative or anesthesia administration during this stay. Category 1B: Patient has history of documented sleep apnea, and HAS received any narcotic , sedative or anesthesia administration during this stay Category 2: Patient has SUSPECTED Obstructive Sleep Apnea, and HAS received any narcotic , sedative or anesthesia administration during this stay. Category 3: Patient has SUSPECTED Obstructive Sleep Apnea and HAS NOT received narcotic, sedative or anesthesia administration during this stay. Category 4: Outpatient in Procedural Areas with known sleep apnea or who screen positive for High Risk via the STOP/BANG questionnaire. Exam Exam Vital Signs Vital Signs Date Time Temp Pulse Resp B/P Pulse Ox O2 Delivery O2 Flow Rate FiO2 08/16/16 08:12 36.0 102 14 109/61 91 Room Air General Appearance: Alert, Oriented X3, Cooperative HEENT/AIRWAY: MP 1, Neck Movement (Full), Mouth Opening (Wide, upper dentures) Lungs: Clear to Auscultation, Normal Air Movement Heart: Regular Rate/Rhythm, Normal S1, Normal S2 Plan Impression Patient chart reviewed, patient interviewed and anesthestic plan with risks, benefits, and alternatives discussed, and informed consent obtained. NPO Status: 06/16/16 1800 ASA Physical Status: ASA3 Severe Disease (lung cancer) Anesthetic Plan: MAC Bene/Risks/Altern/Consents: Yes HP Complete Prior to Induction: Yes Ezra Allen MD Aug 16, 2016 08:37
[2016-08-16] MEDS ORDERED: Ondansetron 2 mg/mL 2 mL Inj IVPUSH PRN (08:40)
[2016-08-16] MEDS ORDERED: MetoCLOpramide 5 mg/mL 2 mL Inj IVPUSH PRN (08:40)
[2016-08-16 09:35] VITALS: BP 99/58; PULSE 91; RESP 16; O2SAT 94
--- NOTE | 2016-08-16 09:42 | PCM.ANEP1 ---
Post Anesthesia Phase 1 PACU Phase 1 Assessment Date of Service: Aug 16, 2016 Vital Signs Vital Signs Date Time Temp Pulse Resp B/P Pulse Ox O2 Delivery O2 Flow Rate FiO2 08/16/16 09:35 36.2 91 16 99/58 94 Nasal Cannula 2 08/16/16 08:12 36.0 102 14 109/61 91 Room Air Anesthetic Administered: MAC Level of Alertness: Sleepy, easy to arouse TOBIN's with Equal Strength: Yes Pain: No Nausea or Vomiting: No Oxygen Delivery: Nasal Cannula Lungs: Normal Air Movement Ezra Allen MD Aug 16, 2016 09:42
[2016-08-16 09:45] VITALS: BP 108/67; PULSE 92; RESP 20; O2SAT 94
[2016-08-16 09:55] VITALS: BP 124/71; PULSE 102; RESP 22; O2SAT 97
--- NOTE | 2016-08-16 09:57 | PCM.ANEP2 ---
Post Anesthesia Evaluation ASA/CMS Post Anesthesia Date of Service: Aug 16, 2016 VS in Patient's Normal Range?: Yes Resp Stable; Airway Patent?: Yes CV Function & Hydration Stable: Yes Mental Status Recovered?: Yes Pain control Satisfactory?: Yes N/V Control Satisfactory?: Yes Ezra Allen MD Aug 16, 2016 09:57
--- NOTE | 2016-08-16 19:05 | ENDO ---
[address] [address] ENDOSCOPY PROCEDURE PATIENT: VALARIE RIVAS : 1950 MR#: [id number] ADMIT: 08/16/2016 JOB ID: [id number] DATE: 08/16/2016 PROCEDURE: 1. Esophagogastroduodenoscopy with argon plasma coagulation (APC) ablation. 2. Colonoscopy. INDICATIONS: A 66-year-old male with evidence of heme-positive stool and a mild iron-deficiency. He has a history of metastatic lung cancer. EQUIPMENT: GIF H 180 J and a PCF H 180 AL. SEDATION: Monitored anesthesia as provided by Dr. Ezra Allen. COMPLICATIONS: None identified. BOWEL PREPARATION: Fair. PROCEDURE INFORMATION: After the risks and benefits were explained, written and verbal informed consent was obtained. The patient was brought into the endoscopy suite and placed into the left lateral decubitus position. Sedation was achieved using the above-stated medications with the addition of oxygen via nasal cannula. The scope introduced into the mouth through the bite block, and advanced under direct visualization to the level of the second portion of the duodenum. The scope was slowly withdrawn to carefully examine the mucosa for any defects or lesions. Retroflexed views were accomplished in the stomach, the stomach was decompressed and the scope removed the patient who tolerated the procedure well. The patient was then turned around. A digital rectal examination accomplished. No significant pathology appreciated apart from some [id number]-kw-pplrpakd internal and external, nonbleeding, nonthrombosed hemorrhoids. The scope was introduced into the rectum and advanced to the cecum as identified by the appendiceal orifice and ileocecal valve. The scope was slowly withdrawn to carefully examine the mucosa for any defects or lesions. Retroflexed views were avoided in the rectum. Multiple direct views were made at the dentate line for exclusion of pathology. The colon was decompressed. The scope removed from the patient who tolerated the procedure well. FINDINGS: 1. Duodenum: No new or old blood. No telangiectasia. No ulcers or mass lesions. Mucosa was largely unremarkable. 2. Stomach: No ulcers, no outlet obstruction. No mass lesions. Minimal nonspecific gastropathy was seen in the stomach. Retroflexed views disclosed a small sliding hiatal hernia. There were several scattered nonbleeding telangiectasias throughout the body of the stomach. Five of the largest were ablated using a circumferential APC probe on gastric settings. 3. Esophagus: The squamocolumnar junction appeared to extend up into the tubular esophagus ever so subtly from the level of the GE junction. This would be consistent with short-segment Last's. I did not see any nodularity nor any acute erosive changes. No sinister-appearing foci at all. 4. Colon: The patient had some scattered diverticulosis in the sigmoid. Icpf-rx-divnmntc internal hemorrhoids. I did not see any vascular pathology throughout the colon. No mass lesions. No colitis. There was a small polyp somewhere near the hepatic flexure that may have been hyperplastic, certainly looked diminutive and benign. I did not see this on the way back out. ENDOSCOPIC DIAGNOSES: 1. Small sliding hiatal hernia. 2. Short-segment Last's. 3. Minimal clots gastropathy. 4. Scattered gastric telangiectasias status post argon plasma coagulation ablation x5. 5. Colonic diverticulosis. 6. Hemorrhoids. 7. Diminutive right colon polyp transiently seen but not removed. RECOMMENDATIONS: 1. Continue to follow clinically with iron supplementation as deemed necessary. 2. Depending on the patient's response to oncologic care, surveillance upper and lower endoscopy should be considered in 2-3 years' time. 3. The patient is offered some conservative therapies to help with hemorrhoidal engorgement and irritation.
[2016-08-30] MEDS ORDERED: [UNRECOGNIZED DRUG - OTHER] (08:45)
[2016-09-14] MEDS ORDERED: FENT1PAT6 TRANSDERM (10:16)
[2016-09-14] MEDS ORDERED: OMEP20CA11 PO (10:16)
[2016-09-14] MEDS ORDERED: POLY17PO6 PO (10:16)
[2016-09-14] MEDS ORDERED: LEVO200T6 PO (10:16)
[2016-09-14] MEDS ORDERED: HYDR2TAB28 PO (10:16)
[2016-09-27] MEDS ORDERED: FENT1PAT7 TRANSDERM (10:33)
== END 2016-08-16 23:59 | disposition home or self-care (01) ==
LOC: END 07:57
PROVIDERS: ATTEND Internal Medicine Gastroenterology
DX: D64.9 Anemia, unspecified (principal); R13.10 Dysphagia, unspecified; K44.9 Diaphragmatic hernia without obstruction or gangrene; K22.70 Barrett's esophagus without dysplasia; I78.1 Nevus, non-neoplastic; K57.30 Diverticulosis of large intestine without perforation or abscess without bleeding; K64.8 Other hemorrhoids; K63.5 Polyp of colon; I10 Essential (primary) hypertension; E78.5 Hyperlipidemia, unspecified; E03.9 Hypothyroidism, unspecified; I73.9 Peripheral vascular disease, unspecified; J44.9 Chronic obstructive pulmonary disease, unspecified; K21.9 Gastro-esophageal reflux disease without esophagitis; Z85.46 Personal history of malignant neoplasm of prostate; Z85.89 Personal history of malignant neoplasm of other organs and systems; Z85.118 Personal history of other malignant neoplasm of bronchus and lung; Z92.3 Personal history of irradiation; Z92.21 Personal history of antineoplastic chemotherapy; Z87.891 Personal history of nicotine dependence
CPT/HCPCS: 43270; 45378; J7120

== ENCOUNTER 2016-08-24 15:13 | Inpatient (IN) | payer MEDICARE ==
[~2016-08-24] VITALS: Ht 172.7 cm; Wt 107.6 kg
[~2016-08-24 15:13] MED LIST changes: -Lactated Ringer's 1,000 ML IV ONE
[2016-08-24 15:19] VITALS: BP 92/62; PULSE 116; RESP 24; O2SAT 91
[2016-08-24] MEDS ORDERED: 0.9% Sodium Chloride 1,000 ML IV ONE ×2 (15:44→17:00)
[2016-08-24] MEDS ORDERED: Ondansetron 2 mg/mL 2 mL Inj IVPUSH ONE (15:45)
[2016-08-24] MEDS: HYDROmorphone 0.5 mg/0.5 mL iSecure Syringe IVPUSH PRN ×5 (16:01→19:06)
[2016-08-24 16:04] LABS: BASOPHILS % (AUTO) 0.4 % (0-3); EOSINOPHILS % (AUTO) 0.1 % (0-5); MONOCYTES % (AUTO) 9.6 % (4-12); Mean Corpuscular Hemoglobin 26.5 pg (27.0-35.0); Mean Corpuscular Volume 87.7 fL (81-100); Platelet Count 134 bil/L (150-400)
--- NOTE | 2016-08-24 16:08 | ED.REPORT ---
HPI-General Illness Date of Service Aug 24, 2016 ED Provider: David Rosales MD The patient is a 66-year-old gentleman with morbid obesity, hypertension, hypothyroidism, prostate cancer, and right-sided lung adenocarcinoma who presents to the ED complaining of severe generalized pain for the past 3 days. The patient states that his pain started in his right elbow, radiation to his right shoulder, abdomen, chest, and back. He describes his abdominal pain as if "someone is inflating a basketball inside his abdomen". Patient is currently taking 2x 30mg OxyContin per day, 5mg Oxycodone as needed for breakthrough pain , and 500mg Tylenol per day. Today he took 2x 5mg Oxycodone prior to arrival. They have also recently added in THC for pain management, but states that this did not help at all today. His states that the patient has also had a fever , but he is afebrile in the ED. He was diagnosed with lung cancer in the spring, based on PET scan "he has at least stage IIIB disease, cannot rule out stage IV", with ipsilateral supraclavicular lymph node involvement and compression effect on the right main bronchus. Thus far he has been treated with chemoradiation. He is receiving weekly carboplatin and Taxol during radiation that started on June 06. Most recent CT scan on August 02 showed signs consistent with peritoneal carcinomatosis, bony metastasis of the ribs, retroperitoneal adenopathy, and new pulmonary metastases. He has been noted to have persistent venous stasis and edema of the lower extremities. He is also been noted to have chronic anemia with guaiac positive stools. The patient would not like to be admitted to the hospital today unless necessary. However is does not feel comfortable managing his severe pain at home. Patient recent had a colonoscopy for a GI bleed and states that he has been dehydrated since undergoing this prep. Nursing Notes Stated Complaint: SEVER ABDOMINIAL PAIN Chief Complaint: Male Abdominal Pain Nursing Notes Reviewed: Yes Allergies: Coded Allergies: No Known Allergies (Unverified , 08/15/16) Scheduled Amlodipine (Amlodipine) 10 Mg Tablet 10 MG PO DAILY Furosemide (Furosemide) 20 Mg Tab 20 MG PO DAILY Levothyroxine (Levothyroxine) 112 Mcg Tablet 224 MCG PO DAILY Lisinopril (Lisinopril) 20 Mg Tablet 20 MG PO DAILY Omeprazole (Omeprazole) 40 Mg Capsule.dr 40 MG PO BID Oxycodone ER (Oxycontin) 30 Mg Tab.er.12h 30 MG PO BID Tamsulosin (Flomax) 0.4 Mg Capsule 0.8 MG PO HS Trazodone (Trazodone) 50 Mg Tablet 100 MG PO HS Scheduled PRN ([Cannabis Caramels]) 10 MG PO QID PRN PRN For Pain Albuterol HFA (Proair HFA) 8.5 Gm Hfa.aer.ad 1-2 PUFFS INHALATION QID PRN PRN For Shortness of Breath Gabapentin (Gabapentin) 100 Mg Capsule 100 MG PO BID PRN PRN For Pain Oxycodone (Roxicodone) 5 Mg Tablet 10 MG PO QID PRN PRN For Pain General Time Seen by MD: 15:44 Chief Complaint Abdominal pain Hx Obtained From: Patient Arrived By: Wheelchair Sudden in Onset?: No Onset Occurred: 3 days ago Symptom Duration: Since onset Location: : Abdomen: Arm right: Back Quality: Painful Severity: Current: Severe Severity: Maximum: Severe Recent Healthcare: Recent doctor visit Similar Sx Previous: Yes Past Medical History Past Medical History 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 dual malignancy in form of prostate cancer and advanced metastatic lung adenocarcinoma (on second-line cytotoxic chemotherapy with single agent Taxotere) Reports: Hypertension Reports: Thyroid disease Past Surgical History Reports: Tonsillectomy Smoking History Former Smoker Social History Other Social History: Good social support, , Local resident Ambulatory Status Independent Review of Systems Full Review of Systems Constitutional: Reports: Fever, Denies: Chills Cardiovascular: Reports: Chest pain GI: Reports: Abdominal pain, Denies: Nausea, Vomiting Musculoskeletal: Reports: Back pain, Extremity pain, Myalgia Complete sys rev & neg: except as marked. Physical Exam Vital Signs Vital Signs Date Time Temp Pulse Resp B/P Pulse Ox O2 Delivery O2 Flow Rate FiO2 08/24/16 19:41 125 18 98 Nasal Cannula 3 08/24/16 19:25 36.8 124 21 101/77 94 Nasal Cannula 2 08/24/16 17:16 36.8 115 20 117/59 94 Nasal Cannula 2 08/24/16 15:19 37.3 116 24 92/62 91 Room Air Initial VS: Reviewed Neurologic: Alert, Oriented, Nonfocal Psychiatric: Mood/affect normal, Behavior normal General/Constitutional: Awake, Alert, No acute distress Head / Eyes: Normocephalic, PERRL, EOMI ENT: Airway patent, Mucous membranes moist Neck: Supple Respiratory / Chest: No rales, No rhonchi, No wheezing port left anterior chest, no redness, warmth, or swelling. Coarse breath sounds bilaterally, globally dimished right lung field Cardiovascular: Regular rhythm, Heart sounds NL, Peripheral circulation NL Heart Rate / Rhythm: Positive: Tachycardia Abdomen: Soft, No guarding, No rebound Tenderness/Guarding/Rebound: Positive: Tender diffuse, Negative: Rigid to palpation Upper Extremities Upper Extremity / MS: No swelling, No edema Lower Extremity / Pelvis / MS: Non-tender, No deformity pitting edema to the bilateral lower extremities, 2/3 of the legs up to the knees, no lateralizing calf swelling Skin: No rash, Warm, Dry Interpretation & Diagnostics Lab Results Interpretation Result Diagram: 08/24/16 1545 08/24/16 1545 Test 08/24/16 15:45 08/24/16 16:15 White Blood Count 7.4th/mm3 (3.8-10.1) Red Blood Count 3.10mil/mm3 (4.40-5.80) Hemoglobin 8.2g/dL (13.8-17.2) Hematocrit 27.2% (41.0-50.0) Mean Corpuscular Volume 87.7fL (81-100) Mean Corpuscular Hemoglobin 26.5pg (27.0-35.0) Mean Corpuscular Hemoglobin Concent 30.1% (32.0-37.0) Red Cell Distribution Width 18.7% (12.3-15.4) Platelet Count 134bil/L (150-400) Neutrophils (%) (Auto) 83.0% (40-74) Lymphocytes (%) (Auto) 6.6% (14-46) Monocytes (%) (Auto) 9.6% (4-12) Eosinophils (%) (Auto) 0.1% (0-5) Basophils (%) (Auto) 0.4% (0-3) Prothrombin Time 11.1sec (8.1-12.5) Prothromb Time International Ratio 1.04ratio Sodium Level 135mEq/L (134-144) Potassium Level 4.1mEq/L (3.5-5.2) Chloride Level 95mEq/L (97-108) Carbon Dioxide Level 24mmol/L (18-29) Blood Urea Nitrogen 20mg/dL (8-27) Creatinine 0.91mg/dL (0.76-1.27) Estimat Glomerular Filtration Rate 89mL/min (>59) Glucose Level 129mg/dL (60-99) Lactic Acid Level 1.5mmol/L (0.4-2.0) Calcium Level 9.2mg/dL (8.5-10.1) Magnesium Level 1.6mg/dL (1.6-2.6) Total Bilirubin 0.4mg/dL (0.0-1.2) Aspartate Amino Transf (AST/SGOT) 12U/L (0-50) Alanine Aminotransferase (ALT/SGPT) 11U/L (0-44) Alkaline Phosphatase 88U/L (25-160) Troponin T < 0.010ug/L (0.0-0.011) Total Protein 6.8g/dL (6.4-8.4) Albumin 3.5g/dL (3.4-5.0) Lipase 10U/L (13-60) Urine Color Yellow (YELLOW) Urine Appearance Clear (CLEAR,HAZY) Urine pH 5.5 (5.0-8.0) Urine Specific [place] 1.020 (1.003-1.035) Urine Protein Negativemg/dL (NEG,TRACE) Urine Glucose (UA) Negativemg/dL (NEGATIVE) Urine Ketones Negativemg/dL (NEGATIVE) Urine Occult Blood Negative (NEGATIVE) Urine Nitrite Negative (NEGATIVE) Urine Bilirubin Negative (NEGATIVE) Urine Urobilinogen Normalmg/dL (NORMAL) Urine Leukocyte Esterase Negative (NEGATIVE) Urine RBC 0-2/hpf (0-2) Urine WBC 0-5/hpf (0-5) Urine Epithelial Cells Few/hpf (NONE-MOD) Urine Crystals None seen (NONE SEEN) Urine Bacteria Few/hpf (NONE-FEW) Urine Hyaline Casts None/lpf (NONE) Urine Granular Casts None seen (NONE SEEN) Urine Waxy Casts None seen (NONE SEEN) Urine Red Blood Cell Casts None seen (NONE SEEN) Urine White Blood Cell Casts None seen (NONE SEEN) Urine Mucus Present (None Seen) Urine Trichomonas None seen (NONE SEEN) Urine Yeast None (NONE SEEN) Urinalysis Comment None Urine Culture Reflexed Not indicated Hold Mandel Top Tube Received (Received) ECG Interpretation ECG Interpretation: Sinus rhythm, rate 111 Normal axis, normal intervals no ST segments elevations no T wave abnormalities Compared to 05/26/2016 - no acute changes Time: 17:50 Interpreted by: ED physician CT Chest Interpretation IMPRESSION: 1. No evidence of central pulmonary embolism. There is encasement and narrowing of right upper lobe pulmonary arteries by the right hilar mass. 2. Findings consistent with progression of disease including increasing size of a right apical mass, increase in size of a right hilar mass with associated bronchovascular encasement, increased in size of bilateral pulmonary nodules, new small right pleural effusion, increased mediastinal lymphadenopathy, and progression of osseous metastatic disease. 3. Increased septal thickening in the right upper lobe consistent with venous obstruction or lymphangitic carcinomatosis. 4. Bilateral adrenal mass lesions partially visualized consistent with metastatic disease. 5. Narrowing of the right upper lobe bronchus secondary to right hilar encasement. Dictated by: Loki Hendricks M.D. on 08/24/2016 at 17:58 Approved by: Loki Hendricks M.D. on 08/24/2016 at 18:20 Study type: CT pulm angiogram Interpretation / Wet Read by: Interpret - Radiologist CT Abd / Pelvis Interpretation IMPRESSION: 1. No evidence of pneumatosis. 2. Findings consistent with progression of metastatic disease including increase in size of adrenal mass lesions, ascites and increase in size of numerous peritoneal implants compatible with peritoneal carcinomatosis, increased retroperitoneal lymphadenopathy, and increased osseous metastatic disease. 3. 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 4. Nodular hepatic contour compatible cirrhosis. 5. Recommend correlation with concurrent CT of the chest for thoracic findings. Dictated by: Loki Hendricks M.D. on 08/24/2016 at 18:24 Approved by: Loki Hendricks M.D. on 08/24/2016 at 18:35 Interpretation / Wet Read by: Interpret - Radiologist Re-Eval/Medical Decision Med Decision/Clinical Course The patient is a 66-year-old gentleman with morbid obesity, hypertension, hypothyroidism, prostate cancer, and right-sided lung adenocarcinoma who presents to the ED complaining of severe generalized pain for the past 3 days. The patient states that his pain started in his right elbow, radiation to his right shoulder, abdomen, chest, and back. He describes his abdominal pain as if "someone is inflating a basketball inside his abdomen". Patient is currently taking 2x 30mg OxyContin per day, 5mg Oxycodone as needed for breakthrough pain , and 500mg Tylenol per day. Today he took 2x 5mg Oxycodone prior to arrival. They have also recently added in THC for pain management, but states that this did not help at all today. His states that the patient has also had a fever , but he is afebrile in the ED. He was diagnosed with lung cancer in the spring, based on PET scan "he has at least stage IIIB disease, cannot rule out stage IV", with ipsilateral supraclavicular lymph node involvement and compression effect on the right main bronchus. Thus far he has been treated with chemoradiation. He is receiving weekly carboplatin and Taxol during radiation that started on June 06. Most recent CT scan on August 02 showed signs consistent with peritoneal carcinomatosis, bony metastasis of the ribs, retroperitoneal adenopathy, and new pulmonary metastases. He has been noted to have persistent venous stasis and edema of the lower extremities. He is also been noted to have chronic anemia with guaiac positive stools. The patient would not like to be admitted to the hospital today unless necessary. However is does not feel comfortable managing his severe pain at home. Patient recent had a colonoscopy for a GI bleed and states that he has been dehydrated since undergoing this prep. Here in the emergency department the patient is tachycardic in the 120s, he is initially borderline hypotensive though this resolved on repeat testing of his blood pressure. His blood pressure is not significantly changed from his regular baseline. He appears to be in significant pain. Examination notable as above. I discussed the patient's presentation with Dr. Cazares and I also discussed goals of care with the patient as well as his . His pain is quite widespread and likely related to progression of his underlying cancer. That being said there was concern for possible pulmonary embolism as well as possible colon perforation or complication related to his recent colonoscopy. Therefore we opted to obtain a CT angiogram of the chest demonstrated no pulmonary embolism and CT scan of the abdomen and pelvis did not demonstrate any acute surgical process. Imaging studies notable as below: CTA chest: 1. No evidence of central pulmonary embolism. There is encasement and narrowing of right upper lobe pulmonary arteries by the right hilar mass. 2. Findings consistent with progression of disease including increasing size of a right apical mass, increase in size of a right hilar mass with associated bronchovascular encasement, increased in size of bilateral pulmonary nodules, new small right pleural effusion, increased mediastinal lymphadenopathy, and progression of osseous metastatic disease. 3. Increased septal thickening in the right upper lobe consistent with venous obstruction or lymphangitic carcinomatosis. 4. Bilateral adrenal mass lesions partially visualized consistent with metastatic disease. 5. Narrowing of the right upper lobe bronchus secondary to right hilar encasement. CT abdomen/pelvis: 1. No evidence of pneumatosis. 2. Findings consistent with progression of metastatic disease including increase in size of adrenal mass lesions, ascites and increase in size of numerous peritoneal implants compatible with peritoneal carcinomatosis, increased retroperitoneal lymphadenopathy, and increased osseous metastatic disease. 3. 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 4. Nodular hepatic contour compatible cirrhosis. 5. Recommend correlation with concurrent CT of the chest for thoracic findings. Laboratory studies notable as below: CBC without leukocytosis, hematocrit of 27.2 improved from prior Troponin negative Lactic acid 1.5 CMP unremarkable Urinalysis unremarkable Here in the emergency room the patient was treated with antiemetics, IV fluids and multiple doses of hydromorphone. Despite receiving multiple 1 mg aliquots of hydromorphone the patient remained with severe pain. After further discussing with Dr. Cazares we feel that the patient requires admission for further pain management. We suspect that the progression of his pain is likely related to the increasing mass effect of his widely metastatic cancer. Patient was discussed with admitting hospitalist and transferred in stable condition in consultation with Dr. Cazares. Source of Hx: Old records Time of Eval: 17:16 Patient Status: Condition improved Re-Evaluation/Progress Note: Rechecked the patient to discuss the plan laid out by Dr. Cazares. He will likely need to be admitted to the hospital for pain control. Patient understands and agrees with this plan. All questions were addressed. Time of Eval: 19:16 Patient Status: Condition improved Re-Evaluation/Progress Note: Rechecked the patient to discuss the results of his CT scans. Patient will be admitted to the hospital for further pain control. All questions were addressed. Consultation #1: Referral / Consult Name: Alton Lang MD Consulted With: On-call physician (oncology) Call Returned at: 17:10 Senior Linux Systems Administrator: Agrees with eval, Agrees with plan Note: Spoke with Dr. Cazares, oncology, about the patient's case. He requests a CT Angio Chest and CT Abdomen/Pelvis. He should then be admitted to the hospital for pain control. Consultation #2: Referral / Consult Name: Camille Cordero DO Consulted With: Hospitalist Call Returned at: 19:13 Senior Linux Systems Administrator: Will see patient, Agrees with eval, Agrees with plan, Accepts admit Note: Spoke with Dr Cordero, hospitalist, who agrees to accept admit. Counseled Regarding: Diagnosis, Lab results, Need for admission Discharge & Departure Primary Impression: Adenocarcinoma of lung Laterality: unspecified laterality Qualified Code: C34.90 - Malignant neoplasm of unspecified part of unspecified bronchus or lung Additional Impressions: Metastatic adenocarcinoma Abdominal pain Abdominal location: generalized Qualified Code: R10.84 - Generalized abdominal pain Chest pain Chest pain type: unspecified Qualified Code: R07.9 - Chest pain, unspecified Severe pain Tachycardia Anemia Anemia type: iron deficiency Iron deficiency anemia type: chronic blood loss Qualified Code: D50.0 - Iron deficiency anemia secondary to blood loss ( chronic) Disposition: ADMITTED TO HOSPITAL Discharge Condition All VS Reviewed: Yes Condition: Stable Referrals: Johnathan Monreal MD (PCP) Kittyibbenedict Attestation Portions of this note were transcribed by Nicole Graves. I, Dr. Rosales personally performed the history, physical exam and medical decision-making; I reviewed and confirmed the accuracy of the information in the transcribed note. Signed by: Odilon Bell, 08/24/20168 copies to: Johnathan Monreal MD, Beck O MD Aug 24, 2016 16:08 Nicole Graves Aug 24, 2016 16:50
[2016-08-24 16:20] LABS: INR 1.04 ratio
[2016-08-24 16:27] LABS: Magnesium 1.6 mg/dL (1.6-2.6)
[2016-08-24 16:47] LABS: APPEARANCE,URINE CLEAR (CLEAR,HAZY); COLOR,URINE YELLOW (YELLOW); OCCULT BLOOD,URINE NEGATIVE (NEGATIVE); PH,URINE 5.5 (5.0-8.0); UROBILINOGEN,URINE NORMAL (NORMAL)
[2016-08-24] MEDS ORDERED: HYDROmorphone 1 mg/mL Inj IVPUSH ONE ×4 (17:00→20:30)
[2016-08-24 17:16] VITALS: BP 117/59; PULSE 115; RESP 20; O2SAT 94
[2016-08-24] MEDS ORDERED: OXYC30TA77 PO (17:45)
[2016-08-24] MEDS ORDERED: ALBU8.5H2 INHALATION (17:45)
[2016-08-24] MEDS ORDERED: LEVO112T4 PO (17:45)
[2016-08-24] MEDS ORDERED: [UNRECOGNIZED DRUG - OTHER] PO (17:47)
--- NOTE | 2016-08-24 18:21 | DRSVH ---
PROCEDURE: CT ANGIO CHEST PULMONARY EMBOLISM ([id number]) INDICATIONS: History of cancer with chest pain and tachycardia. TECHNIQUE: After the administration of intravenous contrast, 2 mm thick sections acquired from the pulmonary api lilo to the posterior costophrenic angles. 3-dimensional maximum intensity projection (MIP) coronal a nd sagittal reformats were then acquired through the thorax. For radiation dose reduction, the follo wing was used: automated exposure control, adjustment of mA and/or kV according to patient size. COMPARISON: [facility], CT, CT NECK CHEST ABD PELVIS W CON, 08/02/2016, 15:45. [facility], CT, CT ANGIO CHEST PE, 05/25/2016, 13:21. FINDINGS: Image quality: Excellent. Pulmonary arteries: Pulmonary arteries demonstrate no intraluminal filling defects to suggest centra l pulmonary embolism. There is encasement of right hilar vessels including encasement and narrowing of right upper lobe pulmonary arteries. Lungs and pleura: There is a new small right pleural effusion with right basilar consolidation or co mpressive atelectasis. There is interval increase in size of a right apical mass with associated bon y destruction of the right 1st and 2nd ribs. An adjacent spiculated parenchymal component is also sl ightly increased in size. There are multiple bilateral pulmonary nodules which have increased in siz e. These include a right middle lobe nodule measuring up to 1.6 cm increased in size from 1.3 cm pre viously. A peripheral left upper lobe nodule now measures up to 1.4 cm compared to 1.3 cm previously . There is slightly increased septal thickening in the right upper lobe which represent venous obstr uction or lymphangitic spread of disease. There is also increase in size of a right suprahilar mass with associated bronchovascular encasement. This includes severe narrowing of the right upper lobe b ronchus. Mediastinum: Heart size is normal. There is a small amount of pericardial fluid. There is a left c hest wall Port-A-Cath with the tip extending into the right atrium. Thoracic aorta is normal in [place] and enhancement. There is progressive increase in size of multiple mediastinal lymph nodes. A r epresentative right paratracheal node measures up to 2.1 cm in short axis compared to 1.9 cm [address] Confluent right hilar patricia soft tissue has also increased as noted above. There are also cardi ophrenic lymph nodes which have increased in size compared to the prior study including a left cardio phrenic node anteriorly measuring up to 0.9 cm compared to 0.5 cm previously. Esophagus is normal in caliber, without hiatal hernia. Bones and chest wall: In addition to bony destruction of the right 1st and 2nd ribs described above, there is also a lytic lesion in the right posterior 9th rib consistent with metastatic disease. Thy roid gland demonstrates no discrete nodules. There are a few mildly enlarged right axillary lymph no jayden which have increased in size compared to the prior study, measuring up to 1.1 cm compared to 0.8 cm previously. Abdomen: Visualized upper abdomen demonstrates masslike enlargement of the bilateral adrenal glands which are partially visualized. There is a nodular hepatic contour compatible cirrhosis. IMPRESSION: 1. No evidence of central pulmonary embolism. There is encasement and narrowing of right upper lobe pulmonary arteries by the right hilar mass. 2. Findings consistent with progression of disease including increasing size of a right apical mass, increase in size of a right hilar mass with associated bronchovascular encasement, increased in size of bilateral pulmonary nodules, new small right pleural effusion, increased mediastinal lymphadenopa thy, and progression of osseous metastatic disease. 3. Increased septal thickening in the right upper lobe consistent with venous obstruction or lymphan gitic carcinomatosis. 4. Bilateral adrenal mass lesions partially visualized consistent with metastatic disease. 5. Narrowing of the right upper lobe bronchus secondary to right hilar encasement. Dictated by: Loki Hendricks M.D. on 08/24/2016 at 17:58 Approved by: Loki Hendricks M.D. on 08/24/2016 at 18:20
--- NOTE | 2016-08-24 18:37 | DRSVH ---
PROCEDURE: CT ABDOMEN AND PELVIS WITH CONTRAST ([id number]) INDICATIONS: abd pain, recent colonoscopy TECHNIQUE: After the administration of oral and intravenous contrast, 5 mm thick sections acquired from the diap hragms to the symphysis. 5 mm thick coronal and sagittal reformats were performed. For radiation do se reduction, the following was used: automated exposure control, adjustment of mA and/or kV accordi ng to patient size. COMPARISON: [facility], CT, CT ANGIO CHEST PE, 08/24/2016, 17:18. Outside Film, CT, CT C HEST ABD PELVIS W CON, 10/20/2015, 11:22. [facility], CT, CT NECK CHEST ABD PELVIS W CON, 08/02/2016, 15:45. FINDINGS: Image quality: Excellent. ABDOMEN: Lung bases: There is a small right pleural effusion with associated right basilar consolidation or c ompressive atelectasis. There are multiple pulmonary nodules in the visualized lung bases which have increased in size compared to the prior study. Heart size is normal. There is a small amount of pe ricardial fluid. There are small cardiophrenic lymph nodes which have also increased in size compare d to the prior study. Solid organs: The liver is nodular in contour without a discrete mass lesion identified. The spleen is borderline enlarged, measuring up to 13.5 cm. Gallbladder is distended without calcified gallsto silvestre or wall thickening. Biliary system is non-dilated. No peripancreatic fat stranding or fluid are hepatic duct is nondistended. Kidneys demonstrate no hydronephrosis. There are bilateral adrenal masses, measuring up to 6.0 x 3.9 cm on the left increased in size from 5 .9 x 3.7 cm previously. Peritoneum and bowel: Stomach and small bowel loops are normal in caliber and wall thickness. There is mild segmental wall thickening in the rectosigmoid colon. There is colonic diverticulosis withou t definite acute diverticulitis. No free air. There is a small amount of intraperitoneal free fluid. There are numerous peritoneal s oft tissue nodules demonstrated throughout the abdomen and pelvis consistent with peritoneal implants . A bank representative nodule in the right upper quadrant measures up to 2.3 x 2.0 cm, increased in size from 1.5 x 1.4 cm previously. Nodes and vessels: There multiple enlarged retroperitoneal lymph nodes which have increased in size compared to the prior study. A bank representative left para-aortic node at the level of the left renal h ilum measures up to 1.6 cm in short axis compared to 1.2 cm previously. There is a small focal short segment thrombosed dissection of the infrarenal abdominal aorta which appears unchanged. The aorta is within normal size limits measuring up to 2.7 cm. Miscellaneous: No ventral hernias. PELVIS: Genitourinary: Bladder wall thickness is normal. Miscellaneous: No inguinal hernias or adenopathy. Bones: There is a lytic lesion demonstrated in the right posterior 9th rib systemic metastatic disea se. There is also a lytic lesion within the T12 vertebral body measuring up to 0.7 cm which is incre ased from the prior study and consistent with metastatic disease. No vertebral body compression frac tures. IMPRESSION: 1. No evidence of pneumatosis. 2. Findings consistent with progression of metastatic disease including increase in size of adrenal mass lesions, ascites and increase in size of numerous peritoneal implants compatible with peritoneal carcinomatosis, increased retroperitoneal lymphadenopathy, and increased osseous metastatic disease. 3. 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 4. Nodular hepatic contour compatible cirrhosis. 5. Recommend correlation with concurrent CT of the chest for thoracic findings. Dictated by: Loki Hendricks M.D. on 08/24/2016 at 18:24 Approved by: Loki Hendricks M.D. on 08/24/2016 at 18:35
[2016-08-24] MEDS ORDERED: Alum-Mag Hydrox-Simeth 30 mL Suspension PO PRN ×2 (18:45→20:10)
[2016-08-24] MEDS ORDERED: Ondansetron 2 mg/mL 2 mL Inj IVPUSH PRN ×3 (18:45→20:50)
[2016-08-24 19:25] VITALS: BP 101/77; PULSE 124; RESP 21; O2SAT 94
[2016-08-24] MEDS ORDERED: Albuterol-Ipratropium 3 mL Inhalation Solution ONE (19:35)
[2016-08-24 19:41] VITALS: PULSE 125; RESP 18; O2SAT 98
[2016-08-24] MEDS ORDERED: Polyethylene Glycol (PEG) 17 Gm Powder PO PRN (20:10)
[2016-08-24] MEDS ORDERED: HYDROmorphone 1 mg/mL Inj IVPUSH PRN (20:50)
[2016-08-24 21:16] VITALS: BP 114/76; PULSE 122; RESP 22; O2SAT 94
[2016-08-24 21:18] VITALS: BP 107/61; PULSE 120; RESP 20; O2SAT 93
[2016-08-24] MEDS: HYDROmorphone PCA 0.2 mg/mL 30 mL Inj IV PRN (22:48)
--- NOTE | 2016-08-24 23:19 | PCM.HPMED ---
Subjective Date of Service Aug 24, 2016 Primary Provider: Admitting Physician: Primary Care Physician: Johnathan Monreal MD Attending Physician: Admit Status: From the Emergency Department, Remote Telemetry Chief Complaint: Intractable abdominal and right upper extremity pain not controlled by po pain medications History of Present Illness: Mr. 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 He was admitted for evaluation and treatment of intractable pain secondary to metastatic disease requiring IV narcotics. Hospital day one. Mr. Josue states that his pain became uncontrollable approximately 2 days prior to admission, and continued to worsen, which prompted this admission. The pain is sharp, initiates in the right elbow, extends to the right shoulder, and then radiates down to his abdomen. The pain in his abdomen is diffuse widespread, waxes and wanes at significant intensity, and is uncontrolled by his home medication regimen. He states that he has taken high-dose narcotics every 6 hours at home, without relief. He cannot recall any inciting trauma or reason for his increase in pain. Denies any recent muscular or skeletal injury. Denies any recent over-exertion. Denies any associated fever, chills, nausea, vomiting, increases in edema, or diarrhea. He does admit to ongoing constipation , which has been a chronic issue, which he attributes to his narcotic use. He states he takes a daily stool softener with only minimal relief. His oncologist is Dr. Cazares of [facility], and his next scheduled for this upcoming Monday08/26/16 for continuing chemotherapy. Per oncology note dated 08/11/2016, patient is currently receiving single agent Taxotere, with the first dose given on August 04. Additionally, patient completed EGD with APC ablation and colonoscopy on . EGD revealed several scattered nonbleeding telangiectasias throughout the body of the stomach, s/p APC, in addition to an abnormal squamocolumnar junction indicative of Last's. Colonoscopy did not reveal any mass lesions or colitis, but did not reveal some diverticulosis and hemorrhoids. CTA 08/24 revealed no evidence of pulmonary embolism. There was encasement of the right hilar vessels including encasement and narrowing of the right upper lobe pulmonary arteries. A right apical mass was seen with associated bony destruction of the right first and second ribs, in addition to bilateral pulmonary nodules which have increased in size, including a right middle lobe nodule measuring 1.6 cm, and a peripheral left upper lobe nodule. There was also a slightly increased septal thickening of the right upper lobe suggestive of venous obstruction or lymphangitic spread of disease such as lymphangitic carcinomatosis. CT A/P with contrast 08/24 revealed multiple pulmonary nodules which have increased in size compared to the previous study from October 2015. The spleen was found to be mildly enlarged at 13.5 cm, gallbladder was nondistended without gallstones or wall thickening. No ania-pancreatic fat stranding or fluid was noted. There are bilateral adrenal masses, measuring up to 6.0 x 3.9 cm on the left which had increased in size from the previous study. There are multiple enlarged retroperitoneal lymph nodes which have also increased in size compared to the previous study. Multiple lytic lesions were found, including in the right posterior ninth rib, and the T12 vertebral body, which have increased in size and appears to be consistent with metastatic disease. The liver was noted to be compatible with cirrhosis. The radiologist concluded that these findings are consistent with progression of metastatic disease including increase in the size of the adrenal mass lesions, ascites, and increase in the size of numerous peritoneal implants that are compatible with peritoneal carcinomatosis. This finding of advancing metastatic disease was also supported by the increase in retroperitoneal lymphadenopathy and increased osseous metastatic disease. In the ED, temperature 36.8, pulse 124, respiratory rate 21, blood pressure 101/ 77, 94% on 2 L nasal cannula. Patient received multiple administrations of clotted, which the patient described has been effective and lasting only 15 minutes. Pain medication was then changed to morphine, and 4 mg was administered, with slightly more relief. Initial labs revealed a white count of 7.4 with 83 neutrophils, hemoglobin 8.2, hematocrit 27.2. LFTs were within range, troponin negative at less than 0.010, lactic acid 1.5. Blood cultures were obtained Review of Systems: Complete ROS obtained; pertinent positives and negatives as noted above Allergies Coded Allergies: No Known Allergies (Unverified , 08/15/16) Home Medications Albuterol Amlodipine 10 mg daily Furosemide 20 mg daily Gabapentin 100 mg by mouth twice a day-patient reports that he no longer takes this as it was not helping with current symptoms Levothyroxine to 24 g daily Lisinopril 20 mg daily Omeprazole 40 mg twice daily OxyContin 30 mg twice daily Oxycodone 10 mg 4 times daily Tamsulosin 0.8 mg nightly Trazodone 100 mg nightly Marijuana edibles for pain Patient states that he stopped taking the gabapentin as he was no longer having muscular spasms, but still has the medication at home PMH History of prostate cancer Lung adenocarcinoma with metastases Hypertension Hyperlipidemia Peripheral vascular disease Morbid obesity History of tobacco use Surgical History EGD and colonoscopy 08/2016 Bronchoscopy 04/2016 Family History Patient has 6 siblings, one brother of brain cancer Social History 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; 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 Hx Alcohol Use: No Hx Substance Use: No Smoking Status: Former Smoker Living Arrangement: with Family ([place]) Exam Vital Signs Vital Sign - Last Date Time Temp Pulse Resp B/P Pulse Ox O2 Delivery O2 Flow Rate FiO2 08/24/16 19:41 125 18 98 Nasal Cannula 3 08/24/16 19:25 36.8 101/77 Exam General: Alert and oriented 3, in moderate distress secondary to uncontrolled pain HEENT: Atraumatic, sclera anicteric, EOMI, mucous membranes moist Neck: No palpable lymphadenopathy, full range of motion with chin to chest without any pain Cardiac: Tachycardic at time of examination with rates 120 to 130; no murmurs appreciated Respiratory: Adequate air flow all tan, wheeze appreciated bilateral ASIS to mid tan Abdomen: Pain with palpation, unable to appreciate organomegaly secondary to obese body habitus and pain; hypoactive bowel sounds Extremities: Bilateral lower extremity venous stasis changes noted, with areas of healed excoriation, no active bleeding or signs of infection Pulses: Radial equal and bilateral Skin: Warm and dry Neuro: Cranial nerves II through XII grossly intact, facial expressions are equal and symmetric, speech without slurring Psych: Appropriate mood, affect, and responses to questioning; cooperative despite significant pain Patient appears to have good insight and judgment, as he is well aware his condition is terminal and at this time, he appears to have accepted it; his goals at this time are to remain as comfortable as possible and return home as quickly as possible. Lab and Diagnostics Result Diagram: 08/24/16 1545 08/24/16 1545 Assessment & Plan Mr. 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 He was admitted for evaluation and treatment of intractable pain secondary to metastatic disease requiring IV narcotics. Hospital day one. Intractable pain likely secondary to malignancy requiring IV narcotics, acute, present on admission. Ongoing - Patient reports increase in pain over recent two weeks, not alleviated by home narcotic regimen and marijuana use - DDx: Metastatic pain, pancreatitis, constipation, abdominal pathology - CT A/P 08/24 did not reveal gallbladder, liver, colon, kidney pathology, no free air, no evidence diverticulitis - LA 1.5; lipase 10; troponin < 0.010; LFTs within range - Opioid-tolerant MILK PA[employer]ER initiated - Palliative care for pain management Chronic anemia secondary to ongoing malignancy requiring multiple outpatient transfusions. Presumed stable - On admit: Hb 8.2, Hct 27.2 - Patient reports he frequently needs one unit transfusion every 3 weeks - Monitor at this time Lung adenocarcinoma with metastases to adrenals, bone, and likely peritoneum, present on admission. Ongoing - Likely the cause of his significant pain - Consult order placed to Dr. Cazares; please let [employer] no in a.m. to contact outreach and education social worker Constipation, acute on chronic, present on admission. ONgoing - Patient reports ongoing constipation; uses home senna/stool softeners - Likely secondary to high-dose narcotic use for pain control - Miralax BID + softeners until daily bowel habits achieved - Decrease or adjust as needed to achieve daily bowel movements Tachycardia, acute, present on admission. Under evaluation - On admit: 110-120bpm - Likely secondary to ongoing, severe pain - Re-evaluate with pain is better controlled - No cardiac medications indicated at this time History of tobacco use. Stable - Patient has been tobacco free recent years - Lung function compromised by former tobacco use, and now malignancy - Patient reports improvement in sx with inhalers - Duonebs qidwa + accunebs q2h prn - DVT: Lovenox 40 SQ - GI: Not indicated - PRN: Bowel/fever/pain/anti-emetic - Diet: General - Code status: DNR/DNI Patient status: Due to severity of presenting symptoms, risk of adverse events, and likely course of care, anticipated LOS > 2 midnights; pt admitted as INPT Pain Evaluation: Pain not Controlled GI Prophylaxis: Not indicated VTE Prophylaxis: Sub-Q Enoxaparin Resuscitation Status: DNR/DNI:Do Not Resuscitate/Intubate Attending Statement The patient was seen and examined together with house staff on 08/24/2016 and I agree with the history, exam and plan as outlined in the note above. Lawanda Last DO Aug 24, 2016 20:07 Camille Cordero DO Aug 25, 2016 01:15
[2016-08-24] MEDS ORDERED: Albuterol 2.5 mg/3 mL Inhalation Solution NEB PRN (23:20)
[2016-08-24] MEDS: Pantoprazole 40 mg ER24 Tablet PO SCH (23:26)
[2016-08-24] MEDS: Polyethylene Glycol (PEG) 17 Gm Powder PO SCH (23:26)
[2016-08-25] VITALS (17 sets, daily range): BP systolic 100–130; BP diastolic 58–73; PULSE 90–121; RESP 16–22; O2SAT 85–95
--- NOTE | 2016-08-25 02:13 | NUR ---
Arrival to Room 1017 Patient arrived to room 1017 from the ED accompanied by ED staff and at 2105. Patient stated pain at a 10/10 on pain scale. Dilaudid 1mg IVP administered at the time of assessment. Assessment questions answered appropriately. CLINICIAN ONCOLOGY-Dilaudid started with a loading dose of 1mg. Patient not comfortable lying down in bed. Patient choosing to sit up in chair and on side of bed. VSS. Call light within reach. Care continues
[2016-08-25] MEDS: HYDROmorphone PCA 0.2 mg/mL 30 mL Inj IV PRN ×3 (05:17→18:39)
[2016-08-25] MEDS: Pantoprazole 40 mg ER24 Tablet PO SCH ×2 (06:11→20:51)
[2016-08-25 06:22] LABS: BASOPHILS % (AUTO) 0.3 % (0-3); EOSINOPHILS % (AUTO) 0 % (0-5); MONOCYTES % (AUTO) 11.2 % (4-12); Mean Corpuscular Hemoglobin 26.8 pg (27.0-35.0); Mean Corpuscular Volume 88.9 fL (81-100); NEUTROPHILS % (AUTO) 80.6 % (40-74); Platelet Count 123 bil/L (150-400)
[2016-08-25 06:45] LABS: Magnesium 1.6 mg/dL (1.6-2.6); Phosphorus 4.6 mg/dL (2.5-4.9)
[2016-08-25] MEDS: Albuterol-Ipratropium 3 mL Inhalation Solution NEB SCH ×4 (08:03→20:55)
--- NOTE | 2016-08-25 08:49 | NUR ---
Low Systolic and elevated pulse Paged DR. Jordan and notified r/t low systolic and elevated pulse. per Dr. Jordan "hold all BP medications until i see him." Held Lasix, Norvasc, and lisinopril per Dr. Jordan orders. patient aware and agrees. Will Monitor BP and pulse.
[2016-08-25] MEDS: Polyethylene Glycol (PEG) 17 Gm Powder PO SCH ×2 (09:04→20:51)
--- NOTE | 2016-08-25 11:13 | NUR ---
Palliative Care Palliative Care received order from Dr Alex Last 08/24/16 (late day) to assist with pain management. Patient is a 66 year old man with prostate cancer and now lung adenocarcinoma with metastasis. He was admitted 08/24/16 for care of intractable right upper extremity pain and abdominal pain. Per Dr Dorantes, patient and would like to have a hospice info visit. Message has been left with [facility] requesting info visit today. Radha Liat () [phone] Jaya Hernandez (daughter) [phone] Palliative Care to follow. Chayo Go
--- NOTE | 2016-08-25 11:31 | PCM.CONPAL ---
Date of Service Aug 25, 2016 Date of Hospital Admission: Aug 24, 2016 at 20:37 Date of Palliative Consult: Aug 25, 2016 Requesting Provider: Lawanda Last DO Reason Palliative Care Consult: Pain, Goals of Care Discussion, Hospice Referral & Discussion Hospital Unit @time of consult: Orthopedic/Surgical Care Palliative Care Recommendation Pleasant 66-year-old gentleman with metastatic adenocarcinoma of the lung, admitted for pain control. Palliative medicine consulted to assist with symptom management, as well as providing support in exploring goals of care with patient and his . Summary of palliative recommendations: -Symptom management (Pain/other)- he has had outstanding relief with IV hydromorphone ESCROW OFFICER. Discussed options for transition to outpatient pain regimen with the patient and his - after discussion will start topical fentanyl, 50 g per hour patch with hydromorphone, 4 mg orally every 3 hours prn breakthrough pain. While he is making the transition, will continue to have ESCROW OFFICER be available to him for breakthrough pain. I reviewed these plans in detail with his bedside nurse. Will monitor his response and adjust medications in the coming days as needed. Senna discontinued because he says it has an excessive effect on him. Ordered Dulcolax prn as this is his preferred treatment. Colace BID and MiraLAX prn. -DPOA/Advanced Directives/POLST- patient and agree that he is to be DO NOT RESUSCITATE/DO NOT INTUBATE. They had never previously completed a POLST. I assisted them in doing this- original and one copy given to the patient's , with additional copies in his hospital chart and in the palliative medicine office. The POLST indicates he is to be DO NOT RESUSCITATE/DO NOT INTUBATE/ limited interventions/antibiotics and IV fluids allowed/no artificial nutrition. Patient and his were interested in hospice information visit, though if he continues to receive aggressive chemotherapy/immunotherapy they understand that he will not activate hospice at this time. -Family/emotional support- palliative medicine will continue to follow and provide support as needed. Patient's is very supportive as well. Patient Goals: 1. Patient wants to be told the truth about his illness, even if it is unpleasant. 2. Patient would like to be told prognosis when it can be predicted, to better guide treatment decisions. Additional Medical Diagnoses with primary management by Hospitalist team include : Intractable pain likely secondary to malignancy requiring IV narcotics, acute, present on admission. Ongoing Chronic anemia secondary to ongoing malignancy requiring multiple outpatient transfusions. Presumed stable Lung adenocarcinoma with metastases to adrenals, bone, and likely peritoneum, present on admission. Ongoing Constipation, acute on chronic, present on admission. ONgoing Tachycardia, acute, present on admission. Under evaluation History of tobacco use. Stable Problems: End of Life Preferences DO NOT RESUSCITATE/DO NOT INTUBATE/limited interventions per POLST completed on 08/25/2016 Goals of Care At this time, patient wishes to continue aggressive therapy for his cancer. Dr. Cazares will be talking with the patient and his later today, reviewing his latest scans and making recommendations Disposition Probably home Resuscitation Status Resuscitation Status: DNR/DNI:Do Not Resuscitate/Intubate Limited Interventions: BiPAP, Medications and IV Fluid POLST Updates/Changes Previous POLST?: No POLST Last Review Date: Aug 25, 2016 Antibiotics: Use ABX if can Prolong Life Artificially Admin Nutrition: No Artifical Nutrition by Tube POLST Discussed with: Patient, Spouse/Other POLST Review Outcome: New Form Completed . Advanced Care Planning Address: POLST Pain: Moderate Symptom management: Dyspnea, Pain, Constipation Pt History History of Present Illness Per admission H&P: Mr. Wayne Josue is a pleasant 66 year old gentleman with an unfortunate history of prostate cancer, and now lung adenocarcinoma with metastasis to adrenals, peritoneum, and bone, that presented to [facility] with intractable right upper extremity and abdominal pain not controlled by home po pain medications. He was admitted for evaluation and treatment of intractable pain secondary to metastatic disease requiring IV narcotics. Hospital day one. Mr. Josue states that his pain became uncontrollable approximately 2 days prior to admission, and continued to worsen, which prompted this admission. The pain is sharp, initiates in the right elbow, extends to the right shoulder, and then radiates down to his abdomen. The pain in his abdomen is diffuse widespread, waxes and wanes at significant intensity, and is uncontrolled by his home medication regimen. He states that he has taken high-dose narcotics every 6 hours at home, without relief. He cannot recall any inciting trauma or reason for his increase in pain. Denies any recent muscular or skeletal injury. Denies any recent over-exertion. Denies any associated fever, chills, nausea, vomiting, increases in edema, or diarrhea. He does admit to ongoing constipation , which has been a chronic issue, which he attributes to his narcotic use. He states he takes a daily stool softener with only minimal relief. His oncologist is Dr. Cazares of [facility], and his next scheduled for this upcoming Monday08/26/16 for continuing chemotherapy. Per oncology note dated 08/11/2016, patient is currently receiving single agent Taxotere, with the first dose given on August 04. Additionally, patient completed EGD with APC ablation and colonoscopy on . EGD revealed several scattered nonbleeding telangiectasias throughout the body of the stomach, s/p APC, in addition to an abnormal squamocolumnar junction indicative of Last's. Colonoscopy did not reveal any mass lesions or colitis, but did not reveal some diverticulosis and hemorrhoids. CTA 08/24 revealed no evidence of pulmonary embolism. There was encasement of the right hilar vessels including encasement and narrowing of the right upper lobe pulmonary arteries. A right apical mass was seen with associated bony destruction of the right first and second ribs, in addition to bilateral pulmonary nodules which have increased in size, including a right middle lobe nodule measuring 1.6 cm, and a peripheral left upper lobe nodule. There was also a slightly increased septal thickening of the right upper lobe suggestive of venous obstruction or lymphangitic spread of disease such as lymphangitic carcinomatosis. CT A/P with contrast 08/24 revealed multiple pulmonary nodules which have increased in size compared to the previous study from October 2015. The spleen was found to be mildly enlarged at 13.5 cm, gallbladder was nondistended without gallstones or wall thickening. No ania-pancreatic fat stranding or fluid was noted. There are bilateral adrenal masses, measuring up to 6.0 x 3.9 cm on the left which had increased in size from the previous study. There are multiple enlarged retroperitoneal lymph nodes which have also increased in size compared to the previous study. Multiple lytic lesions were found, including in the right posterior ninth rib, and the T12 vertebral body, which have increased in size and appears to be consistent with metastatic disease. The liver was noted to be compatible with cirrhosis. The radiologist concluded that these findings are consistent with progression of metastatic disease including increase in the size of the adrenal mass lesions, ascites, and increase in the size of numerous peritoneal implants that are compatible with peritoneal carcinomatosis. This finding of advancing metastatic disease was also supported by the increase in retroperitoneal lymphadenopathy and increased osseous metastatic disease. Palliative medicine consulted to assist with symptom management and incidentally with review of goals of care, advanced planning, etc. Prior to visiting patient, I reviewed his records in the EMR in detail, including oncology clinic notes as well as notes from previous admissions. Spoke with his bedside nurse prior to visiting, who reported that he had excellent response to the ESCROW OFFICER hydromorphone overnight. By chance, Dr. Cazares called over to speak with his nurse just after I had finished talking with the patient and his , and I reviewed my recommendations and thoughts with him. He noted that he was going to review the patient's latest scan personally, but that the interpretation by the radiologist was troubling and appeared to indicate further progression of his tumor burden. If this impression was borne out, he noted that he might recommend discontinuing aggressive treatment and transition to hospice. On my arrival, patient is sitting up in chair with his sitting on couch at his side. He is slightly drowsy which he attributes to the hydromorphone, but says he otherwise feels very good, with his pain now rated 0/10 after being 10/ 10 at time of admission last evening. Other than the slight drowsiness, he notices no ill effects from the hydromorphone. He has been using the ESCROW OFFICER quite regularly and since admission has already used greater than 18 mg of hydromorphone via the ESCROW OFFICER. Reviewed his medication usage prior to admission. He had been using a combination of 30 mg OxyContin twice daily, 10 mg oxycodone 4 times a day, acetaminophen 500 mg 4 times a day, as well as THC 10 mg caramels. He had done reasonably well until 3-4 days ago when his pain became uncontrolled, leading to his presentation at the emergency department. He notes chronic mild constipation- one bowel movement daily, often with the assistance of Dulcolax. Noted that he had excessive response to senna in the past and so does not want to use that. Mild chronic dyspnea which is stable. We talked at length, reviewing his cancer diagnosis and treatment, his admission to the hospital and understanding of his current status, and then talked further about his plans for further chemotherapy/immunotherapy. He had his both agree that he wants to continue aggressive treatment- he says "I am not ready to pack it in yet". On the other hand, they are both quite resolute in noting that he does not want CPR/defibrillation/intubation under any circumstances. They were interested in a hospice informational visit for future purposes (though recognize that he would not be a candidate for hospice if he were undergoing ongoing chemotherapy/immunotherapy). Past Medical History Significant PMH Noted: History of prostate cancer Lung adenocarcinoma with metastases Hypertension Hyperlipidemia Peripheral vascular disease Morbid obesity History of tobacco use Surgical History EGD and colonoscopy 08/2016 Bronchoscopy 04/2016 Social History Occupation: Retired; , accompanied by his Previously worked for a [employer] Family Members Issues: is very supportive and yet realistic- participates appropriately in conversation regarding plans Social Support: Good support from family members locally Living Situation: Lives at home with his Palliative Performance Scale PPS Patient Status: Current PPS Ambulation: Mainly Sit/Lie PPS Activity: Unable to do most activity PPS Self-Care: Occasional assistance necessary PPS Intake: Normal or reduced PPS Conscious Level: Full Performance Scale: 50% POLST at Time of Admission Previous POLST?: No Allergy Allergies Reviewed: Yes Medications Current Medications: Current Medications Hydromorphone HCl 0.5 mg Q15MIN PRN IVPUSH Last administered on 08/24/16t 19:06 ; Admin Dose 0.5 MG; Start 08/24/16 at 15:45; Stop 08/24/16 at 20:17; Status DC Al Hydrox/Mg Hydrox/Simethicone 30 ml Q6 PRN PO; Start 08/24/16 at 18:45; Stop 08/24/16 at 20:17; Status DC Ondansetron HCl Dose range: 4 mg to 8 mg Q4H PRN IVPUSH; Start 08/24/16 at 18: 45; Stop 08/24/16 at 20:17; Status DC Acetaminophen 975 mg Q6H PRN PO; Start 08/24/16 at 18:45 Al Hydrox/Mg Hydrox/Simethicone 30 ml Q6H PRN PO; Start 08/24/16 at 20:10 Ondansetron HCl 4 to 8 mg Q4H PRN IVPUSH; Start 08/24/16 at 20:10; Stop at 23:34; Status DC Senna 17.2 mg BID PRN PO; Start 08/24/16 at 20:10; Stop 08/25/16 at 11:17; Status DC Polyethylene Glycol 17 gm DAILY PRN PO; Start 08/24/16 at 20:10 Furosemide 20 mg DAILY PO; Start 08/25/16 at 08:30 Levothyroxine Sodium 224 mcg 0630 PO Last administered on 08/25/16 06:11; Admin Dose 224 MCG; Start 08/25/16 at 06:30 Lisinopril 20 mg DAILY PO; Start 08/25/16 at 08:30 Tamsulosin HCl 0.8 mg HS PO Last administered on 08/24/16 23:30; Admin Dose 0.8 MG; Start 08/24/16 at 21:00 Trazodone HCl 100 mg HS PO Last administered on 08/24/16 23:31; Admin Dose 100 MG; Start 08/24/16 at 21:00 Amlodipine Besylate 10 mg DAILY PO; Start 08/25/16 at 08:30 Pantoprazole 40 mg 0630,2030 PO Last administered on 08/25/16 06:11; Admin Dose 40 MG; Start 08/24/16 at 20:30 Hydromorphone HCl Dose Range: 0.5 mg to 1 mg Q1H PRN IVPUSH; Start 08/24/16 at 20:50 Naloxone HCl 0.04 mg Q1MIN PRN IVPUSH; Start 08/24/16 at 20:50 Ondansetron HCl Dose Range: 4 mg to 8 mg Q4H PRN IVPUSH; Start 08/24/16 at 20: 50 Diphenhydramine HCl Dose Range: 12.5 mg... Q4H PRN IVPUSH; Start 08/24/16 at 20 :50 Polyethylene Glycol 17 gm BID PO Last administered on 08/25/16 09:04; Admin Dose 17 GM; Start 08/24/16 at 20:50 Enoxaparin Sodium 40 mg DAILY SUBQ Last administered on 08/25/16 09:05; Admin Dose 40 MG; Start 08/25/16 at 08:30 Albuterol/ Ipratropium 3 ml QIDWA NEB Last administered on 08/25/16 08:03; Admin Dose 3 ML; Start 08/25/16 at 06:00 Albuterol 2.5 mg Q2H PRN NEB; Start 08/24/16 at 23:20 Fentanyl 1 patch Q3D TOPICAL; Start 08/25/16 at 11:15; Status UNV Hydromorphone HCl 4 mg Q3 PRN PO; Start 08/25/16 at 11:15; Status UNV Bisacodyl 5 mg DAILY PRN PO; Start 08/25/16 at 11:15; Status UNV Scheduled Amlodipine (Amlodipine) 10 Mg Tablet 10 MG PO DAILY Furosemide (Furosemide) 20 Mg Tab 20 MG PO DAILY Levothyroxine (Levothyroxine) 112 Mcg Tablet 224 MCG PO DAILY Lisinopril (Lisinopril) 20 Mg Tablet 20 MG PO DAILY Omeprazole (Omeprazole) 40 Mg Capsule.dr 40 MG PO BID Oxycodone ER (Oxycontin) 30 Mg Tab.er.12h 30 MG PO BID Tamsulosin (Flomax) 0.4 Mg Capsule 0.8 MG PO HS Trazodone (Trazodone) 50 Mg Tablet 100 MG PO HS Scheduled PRN ([Cannabis Caramels]) 10 MG PO QID PRN PRN For Pain Albuterol HFA (Proair HFA) 8.5 Gm Hfa.aer.ad 1-2 PUFFS INHALATION QID PRN PRN For Shortness of Breath Gabapentin (Gabapentin) 100 Mg Capsule 100 MG PO BID PRN PRN For Pain Oxycodone (Roxicodone) 5 Mg Tablet 10 MG PO QID PRN PRN For Pain Objective Findings Exam Vital Sign - Last Date Time Temp Pulse Resp B/P Pulse Ox O2 Delivery O2 Flow Rate FiO2 08/25/16 10:27 Supplement Oxygen 08/25/16 08:19 95 08/25/16 08:00 114 22 3.00 08/25/16 07:47 36.6 101/64 Intake and Output 08/24/16 08/24/16 08/25/16 Cumulative From/Thru 15:00 23:00 07:00 08/24/16 15:19 - 08/25/16 06:23 Intake Total 2000 ml 1110 ml 3110 ml Output Total 480 ml 480 ml Balance 2000 ml 630 ml 2630 ml Intake Oral 300 ml 300 ml IV Total 2000 ml 810 ml 2810 ml Output Urine Total 480 ml 480 ml # Bowel Movements 0 0 Objective Stable/unchanged since admission with the exception of marked improvement in pain control General: Alert and oriented 3 HEENT: Atraumatic, sclera anicteric, EOMI, mucous membranes moist Neck: No palpable lymphadenopathy, full range of motion with chin to chest without any pain Cardiac: Tachycardic at time of examination with rates 120 to 130; no murmurs appreciated Respiratory: Adequate air flow all tan, wheeze appreciated bilateral ASIS to mid tan Abdomen: Pain with palpation, unable to appreciate organomegaly secondary to obese body habitus; hypoactive bowel sounds Extremities: Bilateral lower extremity venous stasis changes noted, with areas of healed excoriation, no active bleeding or signs of infection Pulses: Radial equal and bilateral Skin: Warm and dry Neuro: Cranial nerves II through XII grossly intact, facial expressions are equal and symmetric, speech without slurring Psych: Appropriate mood, affect, and responses to questioning Lab/Diagnostics Lab and Imaging results reviewed in detail in EMR. Time spent Total time 90 minutes; >50% face to face with patient and family, providing counselling regarding plans and recommendations, and in care coordination with his medical teams. Of the above total time, 30 minutes counseling for advanced care planning with the patient and his , completing a new POLST after reviewing his wishes in detail with them copies to: Alton Lang MD; Johnathan Monreal MD, David F MD Aug 25, 2016 11:31
--- NOTE | 2016-08-25 12:26 | NUR ---
Fentanyl patch New orders from Dr. Dorantes r/t Fentanyl patch. Patch placed on the right upper arm as ordered. will monitor for adverse effects of pain patch. normal RR-15 and oxygen 3L nasal cannula 95%.
[2016-08-25] MEDS ORDERED: 0.9% Sodium Chloride 250 ML IV SCH (12:29)
[2016-08-25] MEDS ORDERED: Sodium Chloride LOK Flush 10 mL Syringe IVFLUSH PRN ×2 (12:30)
[2016-08-25] MEDS ORDERED: HepLOK Flush 100 unit/mL 5 mL Inj IVFLUSH PRN (12:30)
--- NOTE | 2016-08-25 15:36 | NUR ---
Palliative care note D/A: Arranged for 2:30 [facility] info visit for today. Confirmed with pt spouse. Evelyn from [facility] met with couple-they indicate they are meeting with Dr. Cazares on 08/26/16 at 0730 and will decide at that time if to go on hospice. PC to follow for decision. Family also under impression that pt will need to be weaned off his IV pain meds and that if this is not possible, may need SNF. Pt indicates strong plan to dc by [facility] as has plans in [place]. P: Palliative care to follow. [facility] Addendum: 08/25/16 at 1552 by KHANH BOJORQUEZ PC note amendment Spouse Radha can be reached at [phone]. [facility]
--- NOTE | 2016-08-25 15:42 | NUR ---
Dexamethasone per Dr. Seaman said to give Dexamethasone dose today before chemo tomorrow. Notified Dr Jordan and aware.
--- NOTE | 2016-08-25 18:44 | NUR ---
HARNESS REPAIRER dilaudid 2 new syringes have been added for day shift.
--- NOTE | 2016-08-25 18:48 | NUR ---
New orders Lab called to pick up and delivery driver blood. Blood will be started on next shift r/t shift exchange for patient safety. Dr. Jordan aware and states," it is not urgent but should be done today." Will notify oncoming shift.
[2016-08-25] MEDS ORDERED: Furosemide 10 mg/mL 2 mL Inj IVPUSH ONE (19:30)
--- NOTE | 2016-08-25 21:42 | PCM.PNMED ---
Subjective Date of Service Aug 25, 2016 Subjective Patient is seen and examined, states that he is getting adequate pain relief with Dilaudid ELECTRONIC ORGAN TECHNICIAN pump. He feels fatigued, asked for his CBC result this a.m. consented to 1 unit blood transfusion. He kept asking for his by mouth dexamethasone is usually given prior to his chemotherapy. Explained to him that we can give him 1 dose now, Dr. Daisy Shultz Will discuss any plans to do further chemotherapy with him tonight or tomorrow a.m.. He denies overnight fevers chills. Denies nausea vomiting Exam Vital Signs Vital Sign - Last Date Time Temp Pulse Resp B/P Pulse Ox O2 Delivery O2 Flow Rate FiO2 08/25/16 06:50 22 94 08/25/16 05:45 114 08/25/16 05:03 36.9 100/58 Room Air 08/25/16 00:51 3.00 Intake and Output 08/24/16 08/24/16 08/25/16 Cumulative From/Thru 15:00 23:00 07:00 08/24/16 15:19 - 08/25/16 06:23 Intake Total 2000 ml 1110 ml 3110 ml Output Total 480 ml 480 ml Balance 2000 ml 630 ml 2630 ml Intake Oral 300 ml 300 ml IV Total 2000 ml 810 ml 2810 ml Output Urine Total 480 ml 480 ml # Bowel Movements 0 0 Exam General: NAD, sitting up in chair HEENT: NCAT, poor dentition Eyes: [place] conjunctivae. No ptosis, Neck: No masses, trachea midline, no thyromegaly Lungs: Increased respiratory effort, diminished lung sounds CV: RRR, no murmurs/rubs/gallops, GI: Soft, non-tender with no hepatosplenomegaly Skin: Warm and dry. Extremities: Venous stasis edema bilaterally, 1+ pitting Psych: A&O X3, with approprate affect IVs and Medications IV Fluids None Medications Reviewed: Medications were reviewed in detail Lab and Diagnostics Result Diagram: 08/25/1635 08/25/16534 Assessment & Plan Mr. Wayne Josue is a pleasant 66 year old gentleman with an unfortunate history of prostate cancer, and now lung adenocarcinoma with metastasis to adrenals, peritoneum, and bone, that presented to [facility] with intractable right upper extremity and abdominal pain not controlled by home po pain medications. He was admitted for evaluation and treatment of intractable pain secondary to metastatic disease requiring IV narcotics. Hospital day one. Intractable pain likely secondary to malignancy requiring IV narcotics, acute, present on admission. Ongoing - Patient reports increase in pain over recent two weeks, not alleviated by home narcotic regimen and marijuana use - DDx: Metastatic pain, pancreatitis, constipation, abdominal pathology - CT A/P 08/24 did not reveal gallbladder, liver, colon, kidney pathology, no free air, no evidence diverticulitis - LA 1.5; lipase 10; troponin < 0.010; LFTs within range - Opioid-tolerant ELECTRONIC ORGAN TECHNICIAN initiated - Palliative care for pain management : We appreciate their recommendations. They documented that the patient wanted aggressive treatment he is also willing to forego CPR and ventilation Chronic anemia secondary to ongoing malignancy requiring multiple outpatient transfusions. Presumed stable - On admit: Hb 8.2, Hct 27.2 - Patient reports he frequently needs one unit transfusion every 3 weeks: Blood Bank verifies that he does not need it radiated leuko-reduced -- Patient agrees to one unit blood transfusion today as H&H dropped to 7.5. Lasix 10 mg IV following transfusion - Monitor at this time Concern for low blood pressure this a.m. -- Held his antihypertensives, we did administer by mouth Lasix later in the day Lung adenocarcinoma with metastases to adrenals, bone, and likely peritoneum, present on admission. Ongoing - Likely the cause of his significant pain - Consult order placed to Dr. Cazares; please let TRANSISTOR TESTER no in a.m. to contact packing floor worker: Dr. Villa he was contacted by patient's as well as palliative care, expected to see the patient tomorrow a.m. Will follow up Constipation, acute on chronic, present on admission. ONgoing - Patient reports ongoing constipation; uses home senna/stool softeners - Likely secondary to high-dose narcotic use for pain control - Miralax BID + softeners until daily bowel habits achieved - Decrease or adjust as needed to achieve daily bowel movements Tachycardia, acute, present on admission. Under evaluation - On admit: 110-120bpm: Resolved - Likely secondary to ongoing, severe pain - Re-evaluate with pain is better controlled - No cardiac medications indicated at this time History of tobacco use. Stable - Patient has been tobacco free recent years - Lung function compromised by former tobacco use, and now malignancy - Patient reports improvement in sx with inhalers - Duonebs qidwa + accunebs q2h prn - DVT: Lovenox 40 SQ - GI: Not indicated - PRN: Bowel/fever/pain/anti-emetic - Diet: General - Code status: DNR/DNI Patient status: Due to severity of presenting symptoms, risk of adverse events, and likely course of care, anticipated LOS > 2 midnights; pt admitted as INPT Pain Evaluation: Adequate Pain Control GI Prophylaxis: Not indicated VTE Prophylaxis: Sub-Q Enoxaparin Resuscitation Status: DNR/DNI:Do Not Resuscitate/Intubate Tamra Jordan DO Aug 25, 2016 07:54
--- NOTE | 2016-08-25 23:55 | NUR ---
Blood Admin Blood admin started after shift change. VSS during blood admin. Pt. denied any symptoms during blood admin. Will continue to monitor.
[2016-08-26] VITALS (8 sets, daily range): BP systolic 103–132; BP diastolic 63–70; PULSE 75–122; RESP 16–20; O2SAT 88–95
--- NOTE | 2016-08-26 03:36 | NUR ---
Update Pt. is declining use of pulse oximetry and oxygen. Education given. Will continue to monitor.
[2016-08-26] MEDS: HYDROmorphone PCA 0.2 mg/mL 30 mL Inj IV PRN (05:00)
[2016-08-26 05:28] LABS: Mean Corpuscular Hemoglobin 26.9 pg (27.0-35.0)
[2016-08-26] MEDS: Albuterol-Ipratropium 3 mL Inhalation Solution NEB SCH ×2 (06:00→12:42)
[2016-08-26] MEDS: Pantoprazole 40 mg ER24 Tablet PO SCH (06:17)
[2016-08-26] MEDS: Polyethylene Glycol (PEG) 17 Gm Powder PO SCH (07:53)
--- NOTE | 2016-08-26 09:20 | NUR ---
Pain PRN PO pain medication given as ordered. Dr Dorantes at bed side and per orders to encourage patient to PO pain medication. currently patient is on SCIENCE INTERPRETER pump. Education given.
--- NOTE | 2016-08-26 10:30 | NUR ---
SHAQ Signed at 915 AM
[2016-08-26] MEDS ORDERED: HYDR2TAB27 PO (10:44)
[2016-08-26] MEDS ORDERED: Fentanyl TOPICAL (10:44)
--- NOTE | 2016-08-26 11:24 | NUR ---
PRN Dilaudid PO PRN pain medication Dilaudid has been working effectively per patient. patient is laying comfortably. spouse at bed side. no sign and symptoms of pain noted. denies pain or discomfort at this time. Fentanyl patch from yesterday intact to right upper arm. Dr. Dorantes spoke to patient. per Dr. Dorantes contacted Dr. Seaman. will continue to monitor pain.
--- NOTE | 2016-08-26 12:19 | NUR ---
Pain Dr dorantes at bed side for follow up pain. per Dr. Dorantes let Dr. Jordan know patient is ready for discharge. Paged Dr. Jordan.
--- NOTE | 2016-08-26 12:39 | PCM.DIMED ---
Discharge Instructions Date of Service Aug 26, 2016 Dates of Hospitalization Aug 24, 2016 at 20:37 Discharge Diagnosis Discharge Diagnosis Intractable pain due to R lung adenocarcinoma mets, HTN, [place], Hypothyroidism, chronic anemia of chronic disease Medication Instructions Please take your pain meds as prescribed the palliative care Test Results CBC Test 08/25/16 05:35 08/26/16 05:10 08/26/16 05:52 Neutrophils (%) (Auto) 80.6% (40-74) Lymphocytes (%) (Auto) 7.6% (14-46) Monocytes (%) (Auto) 11.2% (4-12) Eosinophils (%) (Auto) 0% (0-5) Basophils (%) (Auto) 0.3% (0-3) White Blood Count 8.9th/mm3 (3.8-10.1) Red Blood Count 3.08mil/mm3 (4.40-5.80) Hemoglobin 8.3g/dL (13.8-17.2) Hematocrit 26.8% (41.0-50.0) Mean Corpuscular Volume 87.0fL (81-100) Mean Corpuscular Hemoglobin 26.9pg (27.0-35.0) Mean Corpuscular Hemoglobin Concent 31.0% (32.0-37.0) Red Cell Distribution Width 18.0% (12.3-15.4) Platelet Count 120bil/L (150-400) Hold Purple Top Tube Received (Received) CMP Test 08/24/16 15:45 08/24/16 16:15 08/25/16 05:35 08/25/16 06:20 Troponin T < 0.010ug/L Lipase 10U/L Hold [place] Top Tube Received Sodium Level 140mEq/L Potassium Level 4.5mEq/L Chloride Level 100mEq/L Carbon Dioxide Level 25mmol/L Blood Urea Nitrogen 20mg/dL Creatinine 0.71mg/dL Estimat Glomerular Filtration Rate 118mL/min Glucose Level 135mg/dL Calcium Level 8.5mg/dL Phosphorus Level 4.6mg/dL Magnesium Level 1.6mg/dL Total Bilirubin 0.5mg/dL Aspartate Amino Transf (AST/SGOT) 13U/L Alanine Aminotransferase (ALT/SGPT) 10U/L Alkaline Phosphatase 86U/L Total Protein 6.0g/dL Albumin 3.4g/dL Procalcitonin 0.33ng/mL Lactic Acid Level 1.1mmol/L Test 08/26/16 05:52 Hold [place] Top Tube Received Diet No restrictions Activity No restrictions Call your provider Fever or Chills, Shortness of breath, Bleeding, Chest pain, Vomitting, Excessive diarrhea, Weakness (unilateral), Other Patient Instructions Follow-up plan Please schedule follow up with Dr. Cazares in one week in his office. Please schedule f/u with PCP in 2 weeks Follow-up with PCP in: 2 weeks Tamra Jordan DO Aug 26, 2016 12:39
--- NOTE | 2016-08-26 12:41 | PCM.PALLBR ---
Palliative Care Recommendation Pleasant 66-year-old gentleman with metastatic adenocarcinoma of the lung, admitted for pain control. Palliative medicine consulted to assist with symptom management, as well as providing support in exploring goals of care with patient and his . Summary of palliative recommendations: -Symptom management (Pain/other)- good pain control with fentanyl 50 g patch and oral hydromorphone, 4 mg Q3 hr prn breakthrough pain. I prepared written prescriptions for these medications for him- fentanyl patches, 50 g, #10 and hydromorphone, 2 mg, 60 tabs (to be taken 4 mg every 3 hours as needed). If he requires refills he will get these through Dr. Cazares's office starting next week. Senna discontinued because he says it has an excessive effect on him. Ordered Dulcolax prn as this is his preferred treatment. Colace BID and MiraLAX prn. I talked with him and his again today about a maintenance regimen of stool softeners/etc. so as to ensure 1-2 daily bowel movements. -DPOA/Advanced Directives/POLST- patient and agree that he is to be DO NOT RESUSCITATE/DO NOT INTUBATE. New POLST completed 08/25/16 with copy in his paper chart as well as in the palliative office. The POLST indicates he is to be DO NOT RESUSCITATE/DO NOT INTUBATE/limited interventions/antibiotics and IV fluids allowed/no artificial nutrition. Patient and his were interested in hospice information visit and this was completed on 08/25. They will not formally sign on with hospice at this time as he is pursuing immunotherapy. -Family/emotional support- palliative medicine will continue to follow and provide support as needed. Patient's is very supportive as well. Patient Goals: 1. Patient wants to be told the truth about his illness, even if it is unpleasant. 2. Patient would like to be told prognosis when it can be predicted, to better guide treatment decisions. Additional Medical Diagnoses with primary management by Hospitalist team include : Intractable pain likely secondary to malignancy requiring IV narcotics, acute, present on admission. Ongoing Chronic anemia secondary to ongoing malignancy requiring multiple outpatient transfusions. Presumed stable Lung adenocarcinoma with metastases to adrenals, bone, and likely peritoneum, present on admission. Ongoing Constipation, acute on chronic, present on admission. ONgoing Tachycardia, acute, present on admission. Under evaluation History of tobacco use. Stable Problems: End of Life Preferences DO NOT RESUSCITATE/DO NOT INTUBATE/limited interventions per POLST completed on 08/25/2016 Goals of Care At this time, patient wishes to continue aggressive therapy for his cancer. Disposition Home Resuscitation Status Resuscitation Status: DNR/DNI:Do Not Resuscitate/Intubate Limited Interventions: BiPAP, Medications and IV Fluid POLST Updates/Changes Previous POLST?: No POLST Last Review Date: Aug 25, 2016 Antibiotics: Use ABX if can Prolong Life Artificially Admin Nutrition: No Artifical Nutrition by Tube POLST Discussed with: Patient, Spouse/Other POLST Review Outcome: New Form Completed . Pain: Mild Symptom management: Dyspnea, Pain Total time 60 minutes; >50% face to face with patient and family, spread across 3 visits, providing counselling regarding plans and recommendations, and in care coordination with his medical teams. Of the above total time, 15 minutes counseling for advanced care planning with the patient and his Palliative Brief Note Date of Service Aug 26, 2016 . Returned to reevaluate patient. Prior to visiting, I reviewed his updated records in the EMR in detail. Spoke with his bedside nurse on multiple occasions through the morning, and returned several times to check on his progress and to update the patient and his on plans. I also spoke by phone with Dr. Cazares and reviewed status and plans with him. He also visited the patient and his this morning. I also spoke by phone with his hospitalist Dr. Jordan. Pain control has been good with switched to fentanyl patch and oral hydromorphone for breakthrough. As of noon, he rated his pain 3/10, quite tolerable, and was eager for discharge home. His , after some initial misgivings, was agreeable to discharge, and they plan on following up in the office next week with Dr. Cazares. We talked at length about his CT scan findings, the decision to discontinue current chemotherapy and start a trial of immunotherapy next week. Patient's is tearful at times. He remains committed to at least doing a trial of immunotherapy before considering transition to hospice. Physical exam remained stable and unchanged. Arturo Dorantes MD Aug 26, 2016 12:41
[2016-08-26] MEDS ORDERED: POLY17PO6 PO (12:42)
[2016-08-26] MEDS ORDERED: METO25TA6 PO (12:42)
--- NOTE | 2016-08-26 14:07 | NUR ---
Discharge Received discharge orders per DR. Jordan. Reviewed discharge paper work with patient and family along with new prescriptions, understood and signed discharge paper work. Called IV therapy for left chest port. Denies pain or discomfort prior to discharge. patient left unit approx 1400 accompanied by nursing staff with spouse. Care notes provided with written instructions. 4 prescriptions given with patient.
--- NOTE | 2016-08-26 14:20 | NUR ---
PRN Biscodyl given prior to discharge. prescription for Miralax given. Dr. Jordan aware of constipation. Addendum: 08/26/16 at 1422 by ALESSIO MUNGUIA RN Amended: Links added.
--- NOTE | 2016-08-26 15:52 | NUR ---
Palliative care note D/A: Pt dc'ed today. Pt and spouse wish to try immunotherapy with assistance from Dr. Cazares. Msg left for Eliana at [facility] regarding this plan. P: No further need for PC services. Chacha BROWNING, CCM
--- NOTE | 2016-08-26 18:54 | CCS NOTE ---
[facility] [address] [place] [address], [address] [address] MEDICAL ONCOLOGY OFFICE NOTE PATIENT: VALARIE RIVAS : 1950 MR#: [id number] DATE: 08/24/2016 JOB ID: [id number] DATE: 08/26/2016 HISTORY OF PRESENT ILLNESS: This patient is a pleasant, 66-year-old gentleman with history of smoking, sleep apnea, morbid obesity, peripheral vascular disease, and history of peptic ulcer disease, who was diagnosed with lung adenocarcinoma of the right upper lobe and right middle lobe with a rare immunophenotypic subtype, so-called intestinal subtype. Details summarized in my note of July 29, 2016. He was diagnosed one year ago and has been treated with several lines of therapy and has developed metastatic disease to the chest wall and also early peritoneal nodules. He has been treated with carboplatin and Alimta. Eventually disease progression in April. He was on a brief course of crizotinib because his biopsy was positive for a low-level ROS1 gene rearrangement but tolerated that very poorly and also had further progression. The progression was in the chest causing pulmonary compression on the right main bronchus, and therefore, he was switched to chemoradiation. After that, he showed only stable disease in the chest, even in the field of radiation, and had further progression systemically and this was documented in the CAT scan of August 02, and therefore he was switched to third line systemic chemotherapy with Taxotere since during radiation he had received only low-dose radiosensitizing weekly carboplatin and Taxol. He received one dose of Taxotere on August 02 and would have been due for a second cycle today at 75 mg/m2. He contacted our office and advised to go to the ER with severe abdominal pain as well as right-sided body pain. He had on August 16 EGD and colonoscopy to evaluate chronic GI bleed and anemia and I was concerned about a possible perforation in the differential diagnosis. I spoke with the ER physician, and CT angio of the chest was performed yesterday evening, combined with a CT scan of the abdomen and pelvis. He has been started on a [employer] pump. His pain has markedly improved and the palliative care team with Dr. Dorantes have switched him to fentanyl and he has been better controlled today. IMAGING: CT angio of the chest and CT of the abdomen and pelvis with contrast I personally reviewed with Dr. Mclean of Radiology, comparing it to the recent CT scan with contrast that he had just three weeks ago on August 02 the day before Taxotere was started. There is clearly some degree of disease progression already in this three weeks with increase in size of peritoneal nodules suggesting for peritoneal carcinomatosis. No evidence of bowel obstruction or perforation. He also has adrenal metastases that only minimally have increased in size. They are rather stable. No evidence of liver metastases. CT angio showed no PE but encasement of the narrowing of the right upper lobe pulmonary artery that is unchanged but increasing size of the right apical mass as well as the right hilar mass and a new right pleural effusion. Also the size of his lymph nodes in the chest have somewhat increased. On exam, his white cells show tachycardia with a heart rate around 110 at rest. His O2 sat is 94% with 2 L, afebrile, 1+ pitting edema. Abdomen is slightly distended. Pain is improved. He has a bulging mass in the left posterior chest wall that is stable. Endoscopy evaluation of August 16 was reviewed and showed no bleeding ulcer but some telangiectasias that were treated with argon. No malignancy or large polyps in the colon. He had a recent blood transfusion. On today's evaluation hemoglobin is 8.3, platelets 120. White count 8.9. Chemistry shows no major abnormality. ASSESSMENT AND PLAN: A 66-year-old gentleman with metastatic lung cancer of a rare subtype, so-called gastrointestinal immunophenotypic subtype, with strange pattern of metastases to the body wall and subcutaneous tissue, as well as peritoneal nodularity. His main disease was in the right hemithorax involving the right hilar area with ipsilateral right supraclavicular lymph node involvement, initially stage IIIB in August 2015, but he already had most likely at that time early metastatic disease. He is admitted with abdominal pain and above-mentioned workup has been performed and I have been speaking both to the palliative care team as well as ED team yesterday. I personally reviewed his CT scan and it shows slight degree but definitive disease progression over the past three weeks between the CAT scan of August 02 and the scan of yesterday, particularly in the peritoneal nodules. This has a very aggressive clinical behavior at this point, and there is, in my opinion, no point in continuing with Taxotere even though he has received only one dose three weeks ago. We had a good conversation with his and the patient and I discussed the options at this point to be either palliative care alone with hospice versus immunotherapy that we had discussed before and he was planned to go on immunotherapy after a few doses of Taxotere. The patient and his clearly want to be able to say that they have tried immunotherapy before they give up further treatment. His pain seems to be better controlled with the current measures. He has had an informational visit with hospice. Once his pain is adequately controlled, we discussed that he might be discharged either later today or through the weekend and we are going to get the preauthorization for nivolumab as anti-P1 immunotherapy and start the first dose early next week. My concern is that the immunotherapy usually takes some time to mount an immune response and with the aggressive nature of his disease this might deteriorate rapidly but at this point he wants to at least give it a try. Nivolumab will be given at the standard dose of 240 mg and will plan for that on Monday of early next week. Approximately 1 hour and 10 minutes were spent in counseling and coordination of care.
--- NOTE | 2016-08-26 21:37 | PCM.DC.MED ---
Discharge Summary Date of Service Aug 26, 2016 Dates of Hospitalization Date of Hospital Admission Aug 24, 2016 at 20:37 Date of Discharge: Aug 26, 2016 Providers: Admitting Physician: Camille Cordero DO Primary Care Physician: Johnathan Monreal MD Attending Physician: Camille Cordero DO Diagnosis at Time of Discharge Diagnosis at Time of Discharge Intractable pain due to R lung adenocarcinoma mets, HTN, [place], Hypothyroidism, chronic anemia of chronic disease Consultations Oncology Dr. Daisy Garcia, palliative care: Dr. Temo guan FT Procedures XRay, CTs & MRIs [facility] Diagnostic [place] [address] Patient Name: WAYNE RIVAS MR#: [id number] Location: [facility] – [place], [place] Ordering Phys: David Rosales MD Date of Service: 08/24/161713 PROCEDURE: CT ANGIO CHEST PULMONARY EMBOLISM ([id number]) INDICATIONS: History of cancer with chest pain and tachycardia. TECHNIQUE: After the administration of intravenous contrast, 2 mm thick sections acquired from the pulmonary apices to the posterior costophrenic angles. 3-dimensional maximum intensity projection (MIP) coronal and sagittal reformats were then acquired through the thorax. For radiation dose reduction, the following was used: automated exposure control, adjustment of mA and/or kV according to patient size. COMPARISON: [facility], CT, CT NECK CHEST ABD PELVIS W CON, 2016, 15:45. [facility], CT, CT ANGIO CHEST PE, 05/25/2016, 13:21. FINDINGS: Image quality: Excellent. Pulmonary arteries: Pulmonary arteries demonstrate no intraluminal filling defects to suggest central pulmonary embolism. There is encasement of right hilar vessels including encasement and narrowing of right upper lobe pulmonary arteries. Lungs and pleura: There is a new small right pleural effusion with right basilar consolidation or compressive atelectasis. There is interval increase in size of a right apical mass with associated bony destruction of the right 1st and 2nd ribs. An adjacent spiculated parenchymal component is also slightly increased in size. There are multiple bilateral pulmonary nodules which have increased in size. These include a right middle lobe nodule measuring up to 1.6 cm increased in size from 1.3 cm previously. A peripheral left upper lobe nodule now measures up to 1.4 cm compared to 1.3 cm previously. There is slightly increased septal thickening in the right upper lobe which represent venous obstruction or lymphangitic spread of disease. There is also increase in size of a right suprahilar mass with associated bronchovascular encasement. This includes severe narrowing of the right upper lobe bronchus. Mediastinum: Heart size is normal. There is a small amount of pericardial fluid. There is a left chest wall Port-A-Cath with the tip extending into the right atrium. Thoracic aorta is normal in caliber and enhancement. There is progressive increase in size of multiple mediastinal lymph nodes. A marketing sales representative right paratracheal node measures up to 2.1 cm in short axis compared to 1.9 cm previously. Confluent right hilar patricia soft tissue has also increased as noted above. There are also cardiophrenic lymph nodes which have increased in size compared to the prior study including a left cardiophrenic node anteriorly measuring up to 0.9 cm compared to 0.5 cm previously. Esophagus is normal in caliber, without hiatal hernia. Bones and chest wall: In addition to bony destruction of the right 1st and 2nd ribs described above, there is also a lytic lesion in the right posterior 9th rib consistent with metastatic disease. Thyroid gland demonstrates no discrete nodules. There are a few mildly enlarged right axillary lymph nodes which have increased in size compared to the prior study, measuring up to 1.1 cm compared to 0.8 cm previously. Abdomen: Visualized upper abdomen demonstrates masslike enlargement of the bilateral adrenal glands which are partially visualized. There is a nodular hepatic contour compatible cirrhosis. IMPRESSION: 1. No evidence of central pulmonary embolism. There is encasement and narrowing of right upper lobe pulmonary arteries by the right hilar mass. 2. Findings consistent with progression of disease including increasing size of a right apical mass, increase in size of a right hilar mass with associated bronchovascular encasement, increased in size of bilateral pulmonary nodules, new small right pleural effusion, increased mediastinal lymphadenopathy, and progression of osseous metastatic disease. 3. Increased septal thickening in the right upper lobe consistent with venous obstruction or lymphangitic carcinomatosis. 4. Bilateral adrenal mass lesions partially visualized consistent with metastatic disease. 5. Narrowing of the right upper lobe bronchus secondary to right hilar encasement. Dictated by: Loki Hendricks M.D. on 08/24/2016 at 17:58 Approved by: Loki Hendricks M.D. on 08/24/2016 at 18:20 [facility] Diagnostic Imaging [place] [address] Patient Name: WAYNE RIVAS MR#: [id number] Location: [facility] – [place], [place] Ordering Phys: David Rosales MD Date of Service: 08/24/16 1710 PROCEDURE: CT ABDOMEN AND PELVIS WITH CONTRAST ([id number]) INDICATIONS: abd pain, recent colonoscopy TECHNIQUE: After the administration of oral and intravenous contrast, 5 mm thick sections acquired from the diaphragms to the symphysis. 5 mm thick coronal and sagittal reformats were performed. For radiation dose reduction, the following was used : automated exposure control, adjustment of mA and/or kV according to patient size. COMPARISON: [facility], CT, CT ANGIO CHEST PE, 08/24/2016, 17:18. [facility], CT, CT CHEST ABD PELVIS W CON, 10/20/2015, 11:22. [facility], CT, CT NECK CHEST ABD PELVIS W CON, 08/02/2016, 15:45. FINDINGS: Image quality: Excellent. ABDOMEN: Lung bases: There is a small right pleural effusion with associated right basilar consolidation or compressive atelectasis. There are multiple pulmonary nodules in the visualized lung bases which have increased in size compared to the prior study. Heart size is normal. There is a small amount of pericardial fluid. There are small cardiophrenic lymph nodes which have also increased in size compared to the prior study. Solid organs: The liver is nodular in contour without a discrete mass lesion identified. The spleen is borderline enlarged, measuring up to 13.5 cm. Gallbladder is distended without calcified gallstones or wall thickening. Biliary system is non-dilated. No peripancreatic fat stranding or fluid are hepatic duct is nondistended. Kidneys demonstrate no hydronephrosis. There are bilateral adrenal masses, measuring up to 6.0 x 3.9 cm on the left increased in size from 5.9 x 3.7 cm previously. Peritoneum and bowel: Stomach and small bowel loops are normal in caliber and wall thickness. There is mild segmental wall thickening in the rectosigmoid colon. There is colonic diverticulosis without definite acute diverticulitis. No free air. There is a small amount of intraperitoneal free fluid. There are numerous peritoneal soft tissue nodules demonstrated throughout the abdomen and pelvis consistent with peritoneal implants. A marketing sales representative nodule in the right upper quadrant measures up to 2.3 x 2.0 cm, increased in size from 1.5 x 1.4 cm previously. Nodes and vessels: There multiple enlarged retroperitoneal lymph nodes which have increased in size compared to the prior study. A marketing sales representative left para- aortic node at the level of the left renal hilum measures up to 1.6 cm in short axis compared to 1.2 cm previously. There is a small focal short segment thrombosed dissection of the infrarenal abdominal aorta which appears unchanged. The aorta is within normal size limits measuring up to 2.7 cm. Miscellaneous: No ventral hernias. PELVIS: Genitourinary: Bladder wall thickness is normal. Miscellaneous: No inguinal hernias or adenopathy. Bones: There is a lytic lesion demonstrated in the right posterior 9th rib systemic metastatic disease. There is also a lytic lesion within the T12 vertebral body measuring up to 0.7 cm which is increased from the prior study and consistent with metastatic disease. No vertebral body compression fractures. IMPRESSION: 1. No evidence of pneumatosis. 2. Findings consistent with progression of metastatic disease including increase in size of adrenal mass lesions, ascites and increase in size of numerous peritoneal implants compatible with peritoneal carcinomatosis, increased retroperitoneal lymphadenopathy, and increased osseous metastatic disease. 3. 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 4. Nodular hepatic contour compatible cirrhosis. 5. Recommend correlation with concurrent CT of the chest for thoracic findings. Dictated by: Loki Hendricks M.D. on 08/24/2016 at 18:24 Approved by: Loki Hendricks M.D. on 08/24/2016 at 18:35 Brief History Per admission H&P: Mr. Wayne Rivas is a pleasant 66 year old gentleman with an unfortunate history of prostate cancer, and now lung adenocarcinoma with metastasis to adrenals, peritoneum, and bone, that presented to [facility] with intractable right upper extremity and abdominal pain not controlled by home po pain medications. He was admitted for evaluation and treatment of intractable pain secondary to metastatic disease requiring IV narcotics. Hospital day one. Mr. Rivas states that his pain became uncontrollable approximately 2 days prior to admission, and continued to worsen, which prompted this admission. The pain is sharp, initiates in the right elbow, extends to the right shoulder, and then radiates down to his abdomen. The pain in his abdomen is diffuse widespread, waxes and wanes at significant intensity, and is uncontrolled by his home medication regimen. He states that he has taken high-dose narcotics every 6 hours at home, without relief. He cannot recall any inciting trauma or reason for his increase in pain. Denies any recent muscular or skeletal injury. Denies any recent over-exertion. Denies any associated fever, chills, nausea, vomiting, increases in edema, or diarrhea. He does admit to ongoing constipation , which has been a chronic issue, which he attributes to his narcotic use. He states he takes a daily stool softener with only minimal relief. His oncologist is Dr. Cazares of [facility], and his next scheduled for this upcoming Monday08/26/16 for continuing chemotherapy. Per oncology note dated 08/11/2016, patient is currently receiving single agent Taxotere, with the first dose given on August 04. Additionally, patient completed EGD with APC ablation and colonoscopy on . EGD revealed several scattered nonbleeding telangiectasias throughout the body of the stomach, s/p APC, in addition to an abnormal squamocolumnar junction indicative of Last's. Colonoscopy did not reveal any mass lesions or colitis, but did not reveal some diverticulosis and hemorrhoids. CTA 08/24 revealed no evidence of pulmonary embolism. There was encasement of the right hilar vessels including encasement and narrowing of the right upper lobe pulmonary arteries. A right apical mass was seen with associated bony destruction of the right first and second ribs, in addition to bilateral pulmonary nodules which have increased in size, including a right middle lobe nodule measuring 1.6 cm, and a peripheral left upper lobe nodule. There was also a slightly increased septal thickening of the right upper lobe suggestive of venous obstruction or lymphangitic spread of disease such as lymphangitic carcinomatosis. CT A/P with contrast 08/24 revealed multiple pulmonary nodules which have increased in size compared to the previous study from October 2015. The spleen was found to be mildly enlarged at 13.5 cm, gallbladder was nondistended without gallstones or wall thickening. No ania-pancreatic fat stranding or fluid was noted. There are bilateral adrenal masses, measuring up to 6.0 x 3.9 cm on the left which had increased in size from the previous study. There are multiple enlarged retroperitoneal lymph nodes which have also increased in size compared to the previous study. Multiple lytic lesions were found, including in the right posterior ninth rib, and the T12 vertebral body, which have increased in size and appears to be consistent with metastatic disease. The liver was noted to be compatible with cirrhosis. The radiologist concluded that these findings are consistent with progression of metastatic disease including increase in the size of the adrenal mass lesions, ascites, and increase in the size of numerous peritoneal implants that are compatible with peritoneal carcinomatosis. This finding of advancing metastatic disease was also supported by the increase in retroperitoneal lymphadenopathy and increased osseous metastatic disease. Palliative medicine consulted to assist with symptom management and incidentally with review of goals of care, advanced planning, etc. Prior to visiting patient, I reviewed his records in the EMR in detail, including oncology clinic notes as well as notes from previous admissions. Spoke with his bedside nurse prior to visiting, who reported that he had excellent response to the [employer] OF [employer]IT[employer] hydromorphone overnight. By chance, Dr. Cazares called over to speak with his nurse just after I had finished talking with the patient and his , and I reviewed my recommendations and thoughts with him. He noted that he was going to review the patient's latest scan personally, but that the interpretation by the radiologist was troubling and appeared to indicate further progression of his tumor burden. If this impression was borne out, he noted that he might recommend discontinuing aggressive treatment and transition to hospice. On my arrival, patient is sitting up in chair with his sitting on couch at his side. He is slightly drowsy which he attributes to the hydromorphone, but says he otherwise feels very good, with his pain now rated 0/10 after being 10/ 10 at time of admission last evening. Other than the slight drowsiness, he notices no ill effects from the hydromorphone. He has been using the [employer] quite regularly and since admission has already used greater than 18 mg of hydromorphone via the [employer]. Reviewed his medication usage prior to admission. He had been using a combination of 30 mg OxyContin twice daily, 10 mg oxycodone 4 times a day, acetaminophen 500 mg 4 times a day, as well as THC 10 mg caramels. He had done reasonably well until 3-4 days ago when his pain became uncontrolled, leading to his presentation at the emergency department. He notes chronic mild constipation- one bowel movement daily, often with the assistance of Dulcolax. Noted that he had excessive response to senna in the past and so does not want to use that. Mild chronic dyspnea which is stable. We talked at length, reviewing his cancer diagnosis and treatment, his admission to the hospital and understanding of his current status, and then talked further about his plans for further chemotherapy/immunotherapy. He had his both agree that he wants to continue aggressive treatment- he says "I am not ready to pack it in yet". On the other hand, they are both quite resolute in noting that he does not want CPR/defibrillation/intubation under any circumstances. They were interested in a hospice informational visit for future purposes (though recognize that he would not be a candidate for hospice if he were undergoing ongoing chemotherapy/immunotherapy). Hospital Course Mr. Wayne Rivas is a pleasant 66 year old gentleman with an unfortunate history of prostate cancer, and now lung adenocarcinoma with metastasis to adrenals, peritoneum, and bone, that presented to [facility] with intractable right upper extremity and abdominal pain not controlled by home po pain medications. He was admitted for evaluation and treatment of intractable pain secondary to metastatic disease requiring IV narcotics. Hospital day one. Intractable pain likely secondary to malignancy requiring IV narcotics, acute, present on admission. Ongoing - Patient reports increase in pain over recent two weeks, not alleviated by home narcotic regimen and marijuana use - DDx: Metastatic pain, pancreatitis, constipation, abdominal pathology - CT A/P 08/24 did not reveal gallbladder, liver, colon, kidney pathology, no free air, no evidence diverticulitis - LA 1.5; lipase 10; troponin < 0.010; LFTs within range - Opioid-tolerant [employer] initiated: Palliative care was consulted, they have placed patient on a internal patch, Dilaudid by mouth protocol to go home with. Patient is satisfied with this protocol They documented that the patient wanted aggressive treatment he is also willing to forego CPR and ventilation -- Dr. Villa he has met with the patient and his this morning, intake counselor them regarding possible immunotherapy at a follow-up visit Chronic anemia secondary to ongoing malignancy requiring multiple outpatient transfusions. Presumed stable - On admit: Hb 8.2, Hct 27.2 - Patient reports he frequently needs one unit transfusion every 3 weeks: Blood Bank verifies that he does not need it radiated leuko-reduced -- Patient agrees to one unit blood transfusion on 08/25/16 as H&H dropped to 7.5. Lasix 10 mg IV following transfusion - Post transfusion H&H came up appropriately -- Patient is given a H&H lab slip to be done prior to his follow-up with Dr. Desai Concern for low blood pressure in the am following his admission: This has resolved -- Patient's home medications were restarted with the exception of amlodipine -- Started him on metoprolol 12 .5 twice a day to better control his heart rate as well as blood pressure Lung adenocarcinoma with metastases to adrenals, bone, and likely peritoneum, present on admission. Ongoing - Likely the cause of his significant pain - Consult order placed to Dr. Cazares; : Dr. Villa he was contacted by patient's as well as palliative care, expected to see the patient tomorrow a.m. Will follow up Constipation, acute on chronic, present on admission. ONgoing - Patient reports ongoing constipation; uses home senna/stool softeners - Likely secondary to high-dose narcotic use for pain control - Miralax BID + softeners until daily bowel habits achieved - Decrease or adjust as needed to achieve daily bowel movements Tachycardia, acute, present on admission. Under evaluation - On admit: 110-120bpm: Resolved - Likely secondary to ongoing, severe pain - Metoprolol 12.5 twice a day History of tobacco use. Stable - Patient has been tobacco free recent years - Lung function compromised by former tobacco use, and now malignancy - Patient reports improvement in sx with inhalers - Duonebs qidwa + accunebs q2h prn - DVT: Lovenox 40 SQ - GI: Not indicated - PRN: Bowel/fever/pain/anti-emetic - Diet: General Exam Vital Signs (Last) Date Time Temp Pulse Resp B/P Pulse Ox O2 Delivery O2 Flow Rate FiO2 08/26/16 10:37 Supplement Oxygen 08/26/16 08:56 36.8 112 16 121/70 95 3.00 Test 08/24/16 15:45 08/24/16 16:15 08/25/16 05:35 08/25/16 06:20 Prothrombin Time 11.1sec (8.1-12.5) Prothromb Time International Ratio 1.04ratio Troponin T < 0.010ug/L (0.0-0.011) Lipase 10U/L (13-60) Urine Color Yellow (YELLOW) Urine Appearance Clear (CLEAR,HAZY) Urine pH 5.5 (5.0-8.0) Urine Specific Bernie 1.020 (1.003-1.035) Urine Protein Negativemg/dL (NEG,TRACE) Urine Glucose (UA) Negativemg/dL (NEGATIVE) Urine Ketones Negativemg/dL (NEGATIVE) Urine Occult Blood Negative (NEGATIVE) Urine Nitrite Negative (NEGATIVE) Urine Bilirubin Negative (NEGATIVE) Urine Urobilinogen Normalmg/dL (NORMAL) Urine Leukocyte Esterase Negative (NEGATIVE) Urine RBC 0-2/hpf (0-2) Urine WBC 0-5/hpf (0-5) Urine Epithelial Cells Few/hpf (NONE-MOD) Urine Crystals None seen (NONE SEEN) Urine Bacteria Few/hpf (NONE-FEW) Urine Hyaline Casts None/lpf (NONE) Urine Granular Casts None seen (NONE SEEN) Urine Waxy Casts None seen (NONE SEEN) Urine Red Blood Cell Casts None seen (NONE SEEN) Urine White Blood Cell Casts None seen (NONE SEEN) Urine Mucus Present (None Seen) Urine Trichomonas None seen (NONE SEEN) Urine Yeast None (NONE SEEN) Urinalysis Comment None Urine Culture Reflexed Not indicated Hold Mandel Top Tube Received (Received) Neutrophils (%) (Auto) 80.6% (40-74) Lymphocytes (%) (Auto) 7.6% (14-46) Monocytes (%) (Auto) 11.2% (4-12) Eosinophils (%) (Auto) 0% (0-5) Basophils (%) (Auto) 0.3% (0-3) Sodium Level 140mEq/L (134-144) Potassium Level 4.5mEq/L (3.5-5.2) Chloride Level 100mEq/L (97-108) Carbon Dioxide Level 25mmol/L (18-29) Blood Urea Nitrogen 20mg/dL (8-27) Creatinine 0.71mg/dL (0.76-1.27) Estimat Glomerular Filtration Rate 118mL/min (>59) Glucose Level 135mg/dL (60-99) Calcium Level 8.5mg/dL (8.5-10.1) Phosphorus Level 4.6mg/dL (2.5-4.9) Magnesium Level 1.6mg/dL (1.6-2.6) Total Bilirubin 0.5mg/dL (0.0-1.2) Aspartate Amino Transf (AST/SGOT) 13U/L (0-50) Alanine Aminotransferase (ALT/SGPT) 10U/L (0-44) Alkaline Phosphatase 86U/L (25-160) Total Protein 6.0g/dL (6.4-8.4) Albumin 3.4g/dL (3.4-5.0) Procalcitonin 0.33ng/mL (0.00-0.08) Lactic Acid Level 1.1mmol/L (0.4-2.0) Test 08/26/16 05:10 08/26/16 05:52 White Blood Count 8.9th/mm3 (3.8-10.1) Red Blood Count 3.08mil/mm3 (4.40-5.80) Hemoglobin 8.3g/dL (13.8-17.2) Hematocrit 26.8% (41.0-50.0) Mean Corpuscular Volume 87.0fL (81-100) Mean Corpuscular Hemoglobin 26.9pg (27.0-35.0) Mean Corpuscular Hemoglobin Concent 31.0% (32.0-37.0) Red Cell Distribution Width 18.0% (12.3-15.4) Platelet Count 120bil/L (150-400) Hold Purple Top Tube Received (Received) Hold Pep Top Tube Received (Received) Discharge Medications Discharge Medications ([Fentanyl]) 1 PATCH PATCH 1 PATCH TOPICAL Q3D Prescribed by: MIC CRABTREE MD Furosemide (Furosemide) 20 Mg Tab 20 MG PO DAILY (Reported) Levothyroxine (Levothyroxine) 112 Mcg Tablet 224 MCG PO DAILY (Reported) Lisinopril (Lisinopril) 20 Mg Tablet 20 MG PO DAILY (Reported) Metoprolol Tartrate (Metoprolol Tartrate) 25 Mg Tablet 12.5 MG PO BID Prescribed by: TAMRA CHAIDEZ DO Omeprazole (Omeprazole) 40 Mg Capsule.dr 40 MG PO BID (Reported) Polyethylene Glycol 3350 (Miralax) 17 Gm Powd.pack 17 GM PO BID Prescribed by: TAMRA CHAIDEZ DO Tamsulosin (Flomax) 0.4 Mg Capsule 0.8 MG PO HS (Reported) Trazodone (Trazodone) 50 Mg Tablet 100 MG PO HS (Reported) As needed Albuterol HFA (Proair HFA) 8.5 Gm Hfa.aer.ad 1-2 PUFFS INHALATION QID PRN PRN For Shortness of Breath (Reported) Gabapentin (Gabapentin) 100 Mg Capsule 100 MG PO BID PRN PRN For Pain (Reported ) Hydromorphone (Dilaudid) 2 Mg Tablet 4 MG PO Q3 PRN PRN For Pain Prescribed by: MIC CRABTREE MD Additional med instructions Please take your pain meds as prescribed the palliative care Followup Plan Follow-up plan Please schedule follow up with Dr. Cazares in one week in his office. Please schedule f/u with PCP in 2 weeks Discharge Diet: No restrictions Discharge Activity: No restrictions Follow-up with PCP in: 2 weeks Tamra Chaidez DO Aug 26, 2016 12:43
[2016-08-30] MEDS ORDERED: [UNRECOGNIZED DRUG - OTHER] (08:45)
--- NOTE | 2016-09-14 09:05 | NUR ---
Palliative care note D/A: Follow up phone call placed to pt at [phone] which appears to be pt cell phone. Pt spouse cell is [phone]. Please note that pt was seen for pain control and also symptom management in regards to constipation. He also changed his code status after working with Dr. Dorantes to that of DNR/DNI, please see Dr. Dorantes's note from late August 2016 for further details. Couple had a [facility] info visit but did not sign on for services. Pt and spouse in car on the way to visit with Dr. Cazares today at 0930. Spouse indicates he was recently hospitalized on 09/11-09/13/16, location unknown. She indicates he was confused and hallucinating and was found to have a fever and infection. When asked how things are going, she states "we don't known how things are going." Medical staff felt that possibly pain meds may have added to the confusion and so his fentanyl was cut down to 12 mg on his fentanyl patch. She is giving his hydromorphone now in a prn fashion. Currently on antibiotics. New referral for home health which will being on 09/15/16. She thanks this worker for the phone call and indicates that couple may need services of PC. She has Dr. Dorantes's business card. [employer] indicates to spouse that she will only need to call and PC will assist with arranging for follow up appt. P: Palliative care to continue to follow as needed. Chacha BROWNING, [facility]
[2016-09-14] MEDS ORDERED: LEVO200T6 PO (10:16)
[2016-09-14] MEDS ORDERED: HYDR2TAB28 PO (10:16)
[2016-09-14] MEDS ORDERED: FENT1PAT6 TRANSDERM (10:16)
[2016-09-14] MEDS ORDERED: POLY17PO6 PO (10:16)
[2016-09-14] MEDS ORDERED: OMEP20CA11 PO (10:16)
[2016-09-27] MEDS ORDERED: FENT1PAT7 TRANSDERM (10:33)
== END 2016-08-26 14:00 | disposition home or self-care (01) | DRG 948 ==
LOC: SED 15:13 → OSC 20:37
PROVIDERS: ADMIT Internal Medicine; ATTEND Internal Medicine
PROC: 30233N1 Transfusion of Nonautologous Red Blood Cells into Peripheral Vein, Percutaneous Approach (ICD-10-PCS; principal; 2016-08-25)
DX: G89.3 Neoplasm related pain (acute) (chronic) (principal); C79.72 Secondary malignant neoplasm of left adrenal gland; C79.51 Secondary malignant neoplasm of bone; C78.6 Secondary malignant neoplasm of retroperitoneum and peritoneum; C79.71 Secondary malignant neoplasm of right adrenal gland; C78.01 Secondary malignant neoplasm of right lung; D63.0 Anemia in neoplastic disease; D50.0 Iron deficiency anemia secondary to blood loss (chronic); I10 Essential (primary) hypertension; E03.9 Hypothyroidism, unspecified; E66.01 Morbid (severe) obesity due to excess calories; E86.0 Dehydration; Z66 Do not resuscitate; I73.9 Peripheral vascular disease, unspecified; Z87.891 Personal history of nicotine dependence; Z68.36 Body mass index [BMI] 36.0-36.9, adult

== ENCOUNTER 2016-10-06 10:15 | Emergency (ER) | payer MEDICARE ==
[~2016-10-06] VITALS: Ht 172.7 cm; Wt 104.5 kg
[~2016-10-06 10:15] MED LIST changes: +ALBU8.5H2 INHALATION; -AMLO10TA3 PO; +FENT1PAT7 TRANSDERM; -GABA-500 PO; +HYDR2TAB28 PO; +METO25TA6 PO; +OMEP20CA11 PO; -OMEP40CA36 PO; -OXYC-474 PO; -OXYC15TA73 PO; +POLY17PO6 PO; +[UNRECOGNIZED DRUG - OTHER]; -[UNRECOGNIZED DRUG - OTHER] PO
[2016-10-06 10:34] VITALS: BP 92/60; PULSE 102; RESP 19; O2SAT 94
--- NOTE | 2016-10-06 11:05 | ED.REPORT ---
HPI-Extremity Problem Upper Date of Service Oct 06, 2016 ED Provider: Yunior Cordero History of Present Illness: 66yo male with hx. of metastatic lung cancer, followed by Oncology, Dr. Cazares, reports worsening R arm swelling for 2 weeks. He has had a previous episode of similar swelling in June,, that never completely resolved. DVT was ruled out by doppler then. He has had some falls of late and wonders if he may have strained R arm upon arising. His shoulder is diffusely very tender to any movement or palpation. Fentanyl patch and oral Dilauded at [facility] pain control. Nursing Notes Stated Complaint: SWOLLEN RIGHT ARM Chief Complaint: General Complaint Nursing Notes Reviewed: Yes Allergies: Coded Allergies: No Known Allergies (Unverified , 08/15/16) Scheduled Cephalexin (Cephalexin) 500 Mg Capsule 500 MG PO QID Fentanyl 25 mcg/hr Patch (Fentanyl 25 mcg/hr Patch) 1 Each Patch.td72 1 PATCH TRANSDERM Q3D Furosemide (Furosemide) 20 Mg Tab 20 MG PO DAILY Levothyroxine (Levothyroxine) 200 Mcg Tablet 225 MCG PO DAILY Lisinopril (Lisinopril) 20 Mg Tablet 20 MG PO DAILY Metoprolol Tartrate (Metoprolol Tartrate) 25 Mg Tablet 12.5 MG PO BID Omeprazole (Omeprazole) 20 Mg Capsule.dr 20 MG PO DAILY Polyethylene Glycol 3350 (Miralax) 17 Gm Powd.pack 17 GM PO PRN Tamsulosin (Flomax) 0.4 Mg Capsule 0.8 MG PO HS Trazodone (Trazodone) 50 Mg Tablet 100 MG PO HS Scheduled PRN Albuterol HFA (Proair HFA) 8.5 Gm Hfa.aer.ad 1-2 PUFFS INHALATION QID PRN PRN For Shortness of Breath Hydromorphone (Hydromorphone) 2 Mg Tablet 2 MG PO Q4H PRN PRN Pain Miscellaneous Medications ([Med Cannibis Prn]) General Time Seen by MD: 11:04 Chief Complaint Arm injury right Hx Obtained From: Patient, Spouse, Other family... Arrived By: Wheelchair Onset Occurred: More than a week ago... 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 dual malignancy in form of prostate cancer and advanced metastatic lung adenocarcinoma (on second-line cytotoxic chemotherapy with single agent Taxotere) Reports: Hypertension Reports: Thyroid disease Past Surgical History Reports: Tonsillectomy Smoking History Former Smoker Social History Other Social History: Good social support, , Local resident Ambulatory Status Independent Review of Systems Constitutional: Denies: Chills, Fever Musculoskeletal: Reports: Extremity pain, Extremity swelling Respiratory: Denies: Shortness of breath Cardiovascular: Denies: Chest pain GI: Denies: Abdominal pain Physical Exam Initial Vital Signs Vital Signs (First) Date Time Temp Pulse Resp B/P Pulse Ox O2 Delivery O2 Flow Rate FiO2 10/06/16 10:34 36.5 102 19 92/60 94 Room Air Initial VS: Reviewed General/Constitutional: Awake, Alert, Not toxic appearing Neck: Supple, No adenopathy, No swelling, Non-tender Respiratory / Chest: Atraumatic, Breath sounds NL, Breath sounds = bilat Cardiovascular: Heart rate NL, Regular rhythm, Heart sounds NL Right Shoulder: Positive: ROM reduced, Tenderness present... (Moderate), Negative: Neuro deficit present, Pulses distal decreased Right Forearm: Positive: Erythema present, Swelling present... (Moderate), Warmth present Interpretation & Diagnostics Lab Results Interpretation Result Diagram: 10/06/16 1135 10/06/16 1135 Test 10/06/16 11:35 White Blood Count 6.3th/mm3 (3.8-10.1) Red Blood Count 3.17mil/mm3 (4.40-5.80) Hemoglobin 8.5g/dL (13.8-17.2) Hematocrit 28.6% (41.0-50.0) Mean Corpuscular Volume 90.2fL (81-100) Mean Corpuscular Hemoglobin 26.8pg (27.0-35.0) Mean Corpuscular Hemoglobin Concent 29.7% (32.0-37.0) Red Cell Distribution Width 19.2% (12.3-15.4) Platelet Count 158bil/L (150-400) Neutrophils (%) (Auto) 76.0% (40-74) Lymphocytes (%) (Auto) 10.6% (14-46) Monocytes (%) (Auto) 11.0% (4-12) Eosinophils (%) (Auto) 1.8% (0-5) Basophils (%) (Auto) 0.3% (0-3) Prothrombin Time 11.8sec (8.1-12.5) Prothromb Time International Ratio 1.10ratio Sodium Level 138mEq/L (134-144) Potassium Level 5.0mEq/L (3.5-5.2) Chloride Level 97mEq/L (97-108) Carbon Dioxide Level 28mmol/L (18-29) Blood Urea Nitrogen 30mg/dL (8-27) Creatinine 0.61mg/dL (0.76-1.27) Estimat Glomerular Filtration Rate 141mL/min (>59) Glucose Level 117mg/dL (60-99) Calcium Level 8.4mg/dL (8.5-10.1) Total Bilirubin 1.0mg/dL (0.0-1.2) Aspartate Amino Transf (AST/SGOT) 30U/L (0-50) Alanine Aminotransferase (ALT/SGPT) 15U/L (0-44) Alkaline Phosphatase 140U/L (25-160) Total Protein 6.0g/dL (6.4-8.4) Albumin 2.6g/dL (3.4-5.0) Hold Mandel Top Tube Received (Received) X-Ray Interpretation Xray Interpretation: Patient Name: VALARIE RIVAS MR#: [id number] [place] [facility] [place] Phys: Yunior Cordero [facility] Date of Service: 10/06/16 1118 PROCEDURE: X-RAY RIGHT SHOULDER, MINIMUM TWO VIEWS ([id number]) INDICATIONS: 66 year-old male with right shoulder pain after multiple falls. TECHNIQUE: 3 views of the shoulder were acquired. COMPARISON: None. FINDINGS: Bones: No fractures or dislocations. 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 No suspicious bony lesions. Visualized ribs appear intact. Soft tissues: Left internal jugular central venous catheter is incompletely visualized. No suspicious soft tissue calcifications. IMPRESSION: 1. No acute bony injuries of the right shoulder. 2. Background congenital right glenoid hypoplasia, a condition associated with posterior labral hypertrophy and tears. Dictated by: Abimael Harper M.D. on 10/06/2016 at 13:23 Approved by: Abimael Harper M.D. on 10/06/2016 at 13:25 US Soft Tissue/Musculoskeletal PROCEDURE: US VENOUS ARM DUPLEX UNILATERAL, RIGHT INDICATIONS: R/O DVT TECHNIQUE: Real-time imaging, as well as color and pulse Doppler interrogation, was performed of the right upper extremity deep veins from the inferior neck to the antecubital fossa. COMPARISON: [facility] Ultrasound, US, US VENOUS ARM DPLX UNI RT, 06/08/2016, 15:52. FINDINGS: The internal jugular vein, visualized portions of the subclavian vein, axillary, and brachial veins are free of intraluminal thrombus. Where physically possible, the veins are normally compressible. Color and pulse Doppler demonstrate normal intraluminal flow, with expected phasicity and pulsatility. Additional scanning of the cephalic and basilic veins of the superficial system demonstrate normal compressibility, without thrombus. There is diffuse soft tissue edema seen in the forearm. IMPRESSION: No evidence of deep venous thrombosis Dictated by: Brett Rubio M.D. on 10/06/2016 at 13:38 Approved by: Brett Chavez Re-Eval/Medical Decision Med Decision/Clinical Course Pt. evaluated by Dr. Friedman who advises elevation, emperic treatment for early cellulitis of R forearm, and close follow up. Spoke with Dr. Alicia Trevino, (PCP)Dr. Harvey's colleague, who scheduled Pt. for follow up tomorrow with Dr. Harvey at 10AM. Differential Diagnosis: Positive: Cellulitis likely lymphedema associated with metastatic lung CA. Counseled Regarding: Diagnosis, Lab results, Need for follow-up, When/why to return to ED Discharge & Departure Impression: Primary Impression: Lymphedema of right arm Additional Impressions: Metastatic adenocarcinoma Cellulitis of right forearm Disposition: Home Patient Instructions: Cellulitis (ED), Lymphedema (ED) Additional Instructions: Elevate R arm. Take Cephalexin as prescribed. Follow up with Dr. Monreal tomorrow at 10am. Return to ER if anything worsens. Referrals: Johnathan Monreal MD (PCP) 1 Day for close follow up. EDSupervising Provider for APC: Mona Friedman MD Attending Statement The patient was seen by me as well, I spent [id number] time and examined his arm and I agree with treatment and disposition. Yunior Cordero PAC Oct 06, 2016 11:05 Mona Friedman MD Oct 06, 2016 15:17
[2016-10-06 11:54] LABS: BASOPHILS % (AUTO) 0.3 % (0-3); EOSINOPHILS % (AUTO) 1.8 % (0-5); Mean Corpuscular Hemoglobin 26.8 pg (27.0-35.0); Mean Corpuscular Volume 90.2 fL (81-100); Platelet Count 158 bil/L (150-400)
[2016-10-06 12:10] LABS: INR 1.1 ratio
[2016-10-06 13:21] VITALS: BP 108/65; PULSE 107; RESP 17; O2SAT 93
--- NOTE | 2016-10-06 13:27 | DRSVH ---
PROCEDURE: X-RAY RIGHT SHOULDER, MINIMUM TWO VIEWS ([id number]) INDICATIONS: 66 year-old male with right shoulder pain after multiple falls. TECHNIQUE: 3 views of the shoulder were acquired. COMPARISON: None. FINDINGS: Bones: No fractures or dislocations. 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 No suspicious bony les ions. Visualized ribs appear intact. Soft tissues: Left internal jugular central venous catheter is incompletely visualized. No suspiciou s soft tissue calcifications. IMPRESSION: 1. No acute bony injuries of the right shoulder. 2. Background congenital right glenoid hypoplasia, a condition associated with posterior labral hyper trophy and tears. Dictated by: Abimael Harper M.D. on 10/06/2016 at 13:23 Approved by: Abimael Harper M.D. on 10/06/2016 at 13:25
--- NOTE | 2016-10-06 13:40 | DRSVH ---
PROCEDURE: US VENOUS ARM DUPLEX UNILATERAL, RIGHT INDICATIONS: R/O DVT TECHNIQUE: Real-time imaging, as well as color and pulse Doppler interrogation, was performed of the right upper extremity deep veins from the inferior neck to the antecubital fossa. COMPARISON: [facility] Ultrasound, US, US VENOUS ARM DPLX UNI RT, 06/08/2016, 15:52. FINDINGS: The internal jugular vein, visualized portions of the subclavian vein, axillary, and brach ial veins are free of intraluminal thrombus. Where physically possible, the veins are normally compr essible. Color and pulse Doppler demonstrate normal intraluminal flow, with expected phasicity and p ulsatility. Additional scanning of the cephalic and basilic veins of the superficial system demonstr ate normal compressibility, without thrombus. There is diffuse soft tissue edema seen in the forearm. IMPRESSION: No evidence of deep venous thrombosis Dictated by: Brett Rubio M.D. on 10/06/2016 at 13:38 Approved by: Brett Rubio M.D. on 10/06/2016 at 13:38
[2016-10-06 14:18] VITALS: BP 97/60; PULSE 78; RESP 17; O2SAT 99
[2016-10-06] MEDS ORDERED: CEPH500C PO (14:24)
== END 2016-10-06 14:54 | disposition home or self-care (01) ==
LOC: SED 10:15
DX: I89.0 Lymphedema, not elsewhere classified (principal); C34.90 Malignant neoplasm of unspecified part of unspecified bronchus or lung; L03.113 Cellulitis of right upper limb; I10 Essential (primary) hypertension; E07.9 Disorder of thyroid, unspecified; Z92.21 Personal history of antineoplastic chemotherapy; Z87.891 Personal history of nicotine dependence